=== PATIENT | male | born 1975 | race Caucasian/White ===

== ENCOUNTER 2019-08-01 13:12 | Inpatient (IN) | payer OTHER ==
[2019-08-01 15:48] VITALS: BMI 33.1
--- NOTE | 2019-08-01 16:59 | HP ---
CIWA Score Nausea/Vomitin-Int. Nausea w/Dry Heave Muscle Tremors: 3 Anxiety: 4-Mod. Anxious/Guarded Agitation: 0-Normal Activity Paroxysmal Sweats: 2 Orientation: 1-Uncertain about Date Tacttile Disturbances: 0-None Auditory Disturbances: 0-None Visual Disturbances: 0-None Headache: 0-None Present CIWA-Ar Total Score: 14 - Admission Criteria OASAS Guidelines: Admission for Medically Managed Detox: Requires at least one of the followin. CIWA greater than 12 2. Seizures within the past 24 hours 3. Delirium tremens within the past 24 hours 4. Hallucinations within the past 24 hours 5. Acute intervention needed for co occurring medical disorder 6. Acute intervention needed for co occurring psychiatric disorder 7. Severe withdrawal that cannot be handled at a lower level of care (continued vomiting, continued diarrhea, abnormal vital signs) requiring intravenous medication and/or fluids 8. Patient presents the following: CIWA greater than 12 Admission Criteria Met: Admission criteria met Admitting History and Physical - Admission Chief Complaint: alcohol History of Present Illness: Patient is a 43 yo transgender female (male to female) with hx of alcohol, benzo, crack /cocaine dependence is here seeking inpatient detox d/t withdrawal sx. last detox [facility] ([facility] one month. Reports 10 year sobriety with relapse one and half month ago. Linked to MMTP on methadone 50 mg QD at [facility] last medicated today. Denies any hx of seizures or blackouts. PMHX: Anemia. Psych: insomnia, anxiety, depression. History Source: Patient Limitations to Obtaining History: No Limitations Admission ROS [facility] - [facility] Allergies/Adverse Reactions: Allergies Allergy/AdvReac Type Severity Reaction Status Date / Time No Known Allergies Allergy Verified 08/01/19 15:54 Exam Limitations: No Limitations - Ebola screening Have you traveled outside of the country in the last 21 days: No Have you had contact with anyone from an Ebola affected area: No Do you have a fever: No - Review of Systems Constitutional: Chills, Changes in sleep EENT: reports: No Symptoms Reported Respiratory: reports: No Symptoms reported Cardiac: reports: No Symptoms Reported GI: reports: Nausea, Poor Fluid Intake, Abdominal cramping : reports: No Symptoms Reported Musculoskeletal: reports: Joint Pain Integumentary: reports: No Symptoms Reported Neuro: reports: No Symptoms reported Endocrine: reports: No Symptoms Reported Hematology: reports: Anemia Psychiatric: reports: Orientated x3, Anxious Other Systems: Reviewed and Negative Patient History - Patient Medical History Hx Anemia: Yes Hx Asthma: No Hx Chronic Obstructive Pulmonary Disease (COPD): No Hx Cancer: No Hx Cardiac Disorders: No Hx Congestive Heart Failure: No Hx Hypertension: No Hx Hypercholesterolemia: No Hx Pacemaker: No HX Cerebrovascular Accident: No Hx Seizures: No Hx Dementia: No Hx Diabetes: No Hx Gastrointestinal Disorders: No Hx Liver Disease: No Hx Genitourinary Disorders: No Hx Sexually Transmitted Disorders: No Hx Renal Disease (ESRD): No Hx Thyroid Disease: No Hx Human Immunodeficiency Virus (HIV): No Hx Hepatitis C: No Hx Depression: Yes Hx Suicide Attempt: No Hx Bipolar Disorder: No Hx Schizophrenia: No - Patient Surgical History Past Surgical History: No - PPD History Previous Implant?: No Documented Results: Negative w/o proof PPD to be Administered?: Yes - Smoking Cessation Smoking history: Current every day smoker Have you smoked in the past 12 months: Yes Aproximately how many cigarettes per day: 4 Hx Chewing Tobacco Use: No Initiated information on smoking cessation: Yes 'Breaking Loose' booklet given: 08/01/19 - Substance & Tx. History Hx Alcohol Use: Yes Hx Substance Use: Yes Substance Use Type: Alcohol, Cocaine, Tranquilizers Hx Substance Use Treatment: Yes (Detox [facility] one month ago) - Substances abused Alcohol Substance route: Oral Frequency: Daily Amount used: fifth of vodka or gin Age of first use: 10 Date of last use: 08/01/19 Crack Substance route: Smoking Frequency: Daily Amount used: $30- and up Age of first use: 19 Date of last use: 07/31/19 Admission Physical Exam BHS - Vital Signs Vital Signs: Vital Signs - 24 hr 08/01/19 15:43 Temperature 97.3 F L Pulse Rate 74 Respiratory 18 Rate Blood Pressure 114/75 - Physical General Appearance: Yes: Appropriately Dressed, Disheveled, Obese, Tremorous, Anxious HEENTM: Yes: EOMI, Hearing grossly Normal, Normal ENT Inspection, Normocephalic , Normal Voice, SUDHA, Pharynx Normal, Tm's normal Respiratory: Yes: Chest Non-Tender, Lungs Clear, Normal Breath Sounds, No Respiratory Distress, No Accessory Muscle Use Neck: Yes: Within Normal Limits Breast: Yes: Breast Exam Deferred Cardiology: Yes: Regular Rhythm, Regular Rate Abdominal: Yes: Normal Bowel Sounds, Non Tender, Flat, Soft Genitourinary: Yes: Within Normal Limits Back: Yes: Normal Inspection Musculoskeletal: Yes: full range of Motion, Gait Steady, Pelvis Stable Extremities: Yes: Normal Capillary Refill, Normal Inspection, Normal Range of Motion, Non-Tender Neurological: Yes: Within Normal Limits Integumentary: Yes: Normal Color, Warm, Diaphoresis Lymphatic: Yes: Within Normal Limits - Diagnostic (1) Alcohol dependence with withdrawal, uncomplicated Current Visit: Yes Status: Acute (2) Cocaine dependence, uncomplicated Current Visit: Yes Status: Acute (3) Sbqy-rq-cnorri transgender person Current Visit: Yes Status: Chronic (4) Psychiatric disorder Current Visit: Yes Status: Acute Comment: psych consult ordered Cleared for Admission S - Detox or Rehab [facility] Level of Care: Medically Managed Detox Regimen/Protocol: Librium Breathalyzer - Breathalyzer Breathalyzer: 0 Urine Drug Screen - Test Device Lot number: [id number] Expiration date: 03/24/21 - Control Is test valid?: Yes - Results Drug screen NEGATIVE: No Urine drug screen results: JO-ANN-Cocaine, MTD-Methadone, BZO-Benzodiazepines Inpatient Rehab Admission - Rehab Decision to Admit Inpatient rehab admission?: No
[2019-08-01] MEDS ORDERED: hydrOXYzine PAMOATE 25 MG CAPSULE (FP) PO PRN (17:05)
[2019-08-01] MEDS ORDERED: MAGNESIUM HYDROX 2400MG/30ML ORAL SUSPENSION 30 ML CUP PO PRN (17:05)
[2019-08-01] MEDS ORDERED: NICOTINE POLACRILEX 2 MG GUM BUC PRN (17:05)
[2019-08-01] MEDS ORDERED: ACETAMINOPHEN 325 MG TABLET (FP) PO PRN ×2 (17:05)
[2019-08-01] MEDS ORDERED: MAG HYDROX/AL HYDROX/SIMETH 30 ML UNIT-DOSE CUP PO PRN (17:05)
[2019-08-01] MEDS ORDERED: MENTHOL/PHENOL 1 EACH UD MM PRN (17:05)
[2019-08-01] MEDS ORDERED: BISMUTH SUBSALICYLATE 524 MG/30 ML UD PO PRN (17:05)
[2019-08-01] MEDS ORDERED: chlordiazePOXIDE HCL 25 MG CAPSULE PO PRN (17:05)
[2019-08-01] MEDS ORDERED: METHOCARBAMOL 500 MG TABLET PO PRN (17:05)
[2019-08-01] MEDS ORDERED: IBUPROFEN 400 MG TABLET (FP) PO PRN (17:05)
[2019-08-01] MEDS ORDERED: MAGNESIUM CITRATE 300 ML BOTTLE PO PRN (17:05)
[2019-08-01] MEDS ORDERED: QUEtiapine FUMARATE 50 MG TABLET PO ONE (22:00)
[2019-08-01] MEDS: chlordiazePOXIDE HCL 25 MG CAPSULE PO SCH (23:14)
[2019-08-01] MEDS: THIAMINE HCL 100 MG TABLET (FP) PO SCH (23:15)
[2019-08-01] MEDS: ESTRADIOL 2 MG TABLET (NON-FORMULARY) PO SCH (23:53)
[2019-08-02] MEDS: chlordiazePOXIDE HCL 25 MG CAPSULE PO SCH ×4 (07:18→22:28)
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
[2019-08-02 09:58] LABS: HEMATOCRIT 38.9 % (35.4-49); HEMOGLOBIN 13.3 GM/dL (11.7-16.9); MCH 31.2 pg (25.7-33.7); MCHC 34.2 g/dl (32.0-35.9); MEAN CELL VOLUME 91.2 fl (80-96); MEAN PLT VOLUME 7.8 fl (7.5-11.1); PLATELET COUNT 269 K/MM3 (134-434); RBC 4.27 M/mm3 (4.00-5.60); RDW 12.6 % (11.9-15.9); WHITE BLOOD COUNT 6.8 K/mm3 (4.0-10.0)
[2019-08-02] MEDS ORDERED: METHADONE HCL 10 MG TABLET PO ONE (10:15)
[2019-08-02] MEDS ORDERED: METHADONE 40 MG, METHADONE 10 MG PO ONE (10:20)
[2019-08-02] MEDS ORDERED: METHADONE HCL 40 MG DISPERSABLE TABLET ONE (10:26)
[2019-08-02] MEDS ORDERED: METHADONE HCL 10 MG TABLET ONE (10:26)
[2019-08-02] MEDS: PATIENT'S OWN MEDICATION (NON-FORMULARY) (Spironolactone [Aldactone] 100 MG) PO SCH (10:27)
[2019-08-02] MEDS: ESTRADIOL 2 MG TABLET (NON-FORMULARY) PO SCH ×2 (10:27→22:30)
[2019-08-02] MEDS: PRENATAL VITAMINS W/ FOLIC ACID TABLET (FP) PO SCH (10:29)
[2019-08-02] MEDS: NICOTINE 14 MG/24 HOURS TOPICAL PATCH TD SCH (10:29)
[2019-08-02 10:55] LABS: ALBUMIN 3.1 g/dl (3.4-5.0); BILIRUBIN,TOTAL 0.3 mg/dL (0.2-1); BLOOD UREA NITROGEN 17.5 mg/dL (7-18); CALCIUM 8.8 mg/dL (8.5-10.1); CREATININE 1.2 mg/dL (0.55-1.3); POTASSIUM 4.7 mmol/L (3.5-5.1); TOT PROT 6.6 g/dl (6.4-8.2)
--- NOTE | 2019-08-02 14:30 | PN ---
S CIWA - CIWA Score Nausea/Vomitin-No Nausea/No Vomiting Muscle Tremors: 3 Anxiety: 2 Agitation: 3 Paroxysmal Sweats: 2 Orientation: 0-Oriented Tacttile Disturbances: 0-None Auditory Disturbances: 0-None Visual Disturbances: 0-None Headache: 0-None Present CIWA-Ar Total Score: 10 S Progress Note (SOAP) Subjective: sweats agitation interrupted sleep irritable Objective: 08/02/19 14:29 Vital Signs Temperature 97.6 F 08/02/19 13:53 Pulse Rate 76 08/02/19 13:53 Respiratory Rate 18 08/02/19 13:53 Blood Pressure 140/74 08/02/19 13:53 O2 Sat by Pulse Oximetry (%) Laboratory Tests 08/02/19 08/02/19 08/02/19 08:00 08:00 08:00 WBC 6.8 RBC 4.27 Hgb 13.3 Hct 38.9 MCV 91.2 MCH 31.2 MCHC 34.2 RDW 12.6 Plt Count 269 MPV 7.8 Sodium 139 Potassium 4.7 Chloride 105 Carbon Dioxide 33 H Anion Gap 1 L BUN 17.5 Creatinine 1.2 Est GFR (CKD-EPI)AfAm 84.13 Est GFR (CKD-EPI)NonAf 72.59 Random Glucose 100 Calcium 8.8 Total Bilirubin 0.3 AST 13 L ALT 15 Alkaline Phosphatase 75 Total Protein 6.6 Albumin 3.1 L RPR Titer Nonreactive labs noted aaox3 ambulating no acute distress Assessment: 08/02/19 14:30 withdrawal sx Plan: continue detox increase fluids
[2019-08-02] MEDS: THIAMINE HCL 100 MG TABLET (FP) PO SCH (22:29)
[2019-08-02] MEDS: QUEtiapine FUMARATE 50 MG TABLET PO SCH (22:29)
[2019-08-03] MEDS ORDERED: METHADONE HCL 40 MG DISPERSABLE TABLET ONE (05:26)
[2019-08-03] MEDS ORDERED: METHADONE HCL 10 MG TABLET ONE (05:26)
[2019-08-03] MEDS ORDERED: METHADONE HCL 40 MG DISPERSABLE TABLET PO SCH (06:00)
[2019-08-03] MEDS: METHADONE 40 MG, METHADONE 10 MG PO SCH (06:17)
[2019-08-03] MEDS: chlordiazePOXIDE HCL 25 MG CAPSULE PO SCH ×4 (06:17→22:42)
[2019-08-03] MEDS: PRENATAL VITAMINS W/ FOLIC ACID TABLET (FP) PO SCH (10:48)
[2019-08-03] MEDS: ESTRADIOL 2 MG TABLET (NON-FORMULARY) PO SCH ×2 (10:48→22:42)
[2019-08-03] MEDS: PATIENT'S OWN MEDICATION (NON-FORMULARY) (Spironolactone [Aldactone] 100 MG) PO SCH (10:49)
[2019-08-03] MEDS: NICOTINE 14 MG/24 HOURS TOPICAL PATCH TD SCH (10:49)
--- NOTE | 2019-08-03 13:48 | PN ---
S CIWA - CIWA Score Nausea/Vomitin-No Nausea/No Vomiting Muscle Tremors: 2 Anxiety: 2 Agitation: 2 Paroxysmal Sweats: 2 Orientation: 0-Oriented Tacttile Disturbances: 0-None Auditory Disturbances: 0-None Visual Disturbances: 0-None Headache: 0-None Present CIWA-Ar Total Score: 8 BHS Progress Note (SOAP) Subjective: sweats anxiety restless interrupted sleep Objective: 08/03/19 13:47 Vital Signs Temperature 98.2 F 08/03/19 10:05 Pulse Rate 78 08/03/19 10:05 Respiratory Rate 18 08/03/19 10:05 Blood Pressure 103/68 08/03/19 10:05 O2 Sat by Pulse Oximetry (%) Laboratory Tests 08/02/19 08/02/19 08/02/19 08:00 08:00 08:00 WBC 6.8 RBC 4.27 Hgb 13.3 Hct 38.9 MCV 91.2 MCH 31.2 MCHC 34.2 RDW 12.6 Plt Count 269 MPV 7.8 Sodium 139 Potassium 4.7 Chloride 105 Carbon Dioxide 33 H Anion Gap 1 L BUN 17.5 Creatinine 1.2 Est GFR (CKD-EPI)AfAm 84.13 Est GFR (CKD-EPI)NonAf 72.59 Random Glucose 100 Calcium 8.8 Total Bilirubin 0.3 AST 13 L ALT 15 Alkaline Phosphatase 75 Total Protein 6.6 Albumin 3.1 L RPR Titer Nonreactive labs noted aaox3 ambulating no acute distress Assessment: 08/03/19 13:47 withdrawal sx Plan: continue detox increase fluids
[2019-08-03] MEDS: THIAMINE HCL 100 MG TABLET (FP) PO SCH (22:42)
[2019-08-03] MEDS: QUEtiapine FUMARATE 50 MG TABLET PO SCH (22:42)
[2019-08-03] MEDS: MELATONIN 5 MG TABLETS PO PRN (22:44)
[2019-08-04] MEDS ORDERED: chlordiazePOXIDE HCL 10 MG CAPSULE PO PRN
[2019-08-04] MEDS ORDERED: METHADONE HCL 40 MG DISPERSABLE TABLET ONE (03:25)
[2019-08-04] MEDS ORDERED: METHADONE HCL 10 MG TABLET ONE (03:25)
[2019-08-04] MEDS: chlordiazePOXIDE HCL 10 MG CAPSULE PO SCH ×4 (05:46→22:16)
[2019-08-04] MEDS: METHADONE 40 MG, METHADONE 10 MG PO SCH (05:46)
--- NOTE | 2019-08-04 10:53 | EKG ---
Test Reason : Blood Pressure : / mmHG Vent. Rate : 073 BPM Atrial Rate : 073 BPM P-R Int : 156 ms QRS Dur : 086 ms QT Int : 418 ms P-R-T Axes : 049 060 038 degrees QTc Int : 460 ms NORMAL SINUS RHYTHM NORMAL ECG NO PREVIOUS ECGS AVAILABLE Confirmed by MILADYS CANTRELL MD ([id number]) on 08/04/2019 10:53:31 AM Referred By: IVANIA AVALOS Confirmed By:MILADYS CANTRELL MD
[2019-08-04] MEDS: PRENATAL VITAMINS W/ FOLIC ACID TABLET (FP) PO SCH (10:54)
[2019-08-04] MEDS: ESTRADIOL 2 MG TABLET (NON-FORMULARY) PO SCH ×2 (10:56→22:16)
[2019-08-04] MEDS: PATIENT'S OWN MEDICATION (NON-FORMULARY) (Spironolactone [Aldactone] 100 MG) PO SCH (10:56)
[2019-08-04] MEDS: NICOTINE 14 MG/24 HOURS TOPICAL PATCH TD SCH (10:56)
--- NOTE | 2019-08-04 17:36 | PN ---
S CIWA - CIWA Score Nausea/Vomitin-No Nausea/No Vomiting Muscle Tremors: None Anxiety: 3 Agitation: 2 Paroxysmal Sweats: 2 Orientation: 0-Oriented Tacttile Disturbances: 0-None Auditory Disturbances: 0-None Visual Disturbances: 0-None Headache: 0-None Present CIWA-Ar Total Score: 7 BHS Progress Note (SOAP) Subjective: Feels uncomfortable Objective: 08/04/19 17:34 Last Vital Signs Temp Pulse Resp BP Pulse Ox 98.1 F 85 18 90/48 L 08/04/19 14:23 08/04/19 14:23 08/04/19 14:23 08/04/19 14:23 Hypotension: b/p 90/48, asymptomatic, encouraged PO water intake Laboratory Tests 08/02/19 08/02/19 08/02/19 08:00 08:00 08:00 WBC 6.8 RBC 4.27 Hgb 13.3 Hct 38.9 MCV 91.2 MCH 31.2 MCHC 34.2 RDW 12.6 Plt Count 269 MPV 7.8 Sodium 139 Potassium 4.7 Chloride 105 Carbon Dioxide 33 H Anion Gap 1 L BUN 17.5 Creatinine 1.2 Est GFR (CKD-EPI)AfAm 84.13 Est GFR (CKD-EPI)NonAf 72.59 Random Glucose 100 Calcium 8.8 Total Bilirubin 0.3 AST 13 L ALT 15 Alkaline Phosphatase 75 Total Protein 6.6 Albumin 3.1 L RPR Titer Nonreactive Labs reviewed Assessment: 08/04/19 17:35 Withdrawal sxs Plan: Continue detox Hypotension: asymptomatic, encouraged PO water intake, monitor b/p
[2019-08-04] MEDS: THIAMINE HCL 100 MG TABLET (FP) PO SCH (22:16)
[2019-08-04] MEDS: MELATONIN 5 MG TABLETS PO PRN (22:16)
[2019-08-04] MEDS: QUEtiapine FUMARATE 50 MG TABLET PO SCH (22:16)
[2019-08-05] MEDS ORDERED: METHADONE HCL 10 MG TABLET ONE (04:55)
[2019-08-05] MEDS ORDERED: METHADONE HCL 40 MG DISPERSABLE TABLET ONE (04:56)
[2019-08-05] MEDS: METHADONE 40 MG, METHADONE 10 MG PO SCH (06:56)
[2019-08-05] MEDS: chlordiazePOXIDE HCL 10 MG CAPSULE PO SCH ×2 (06:57→16:57)
[2019-08-05] MEDS: PATIENT'S OWN MEDICATION (NON-FORMULARY) (Spironolactone [Aldactone] 100 MG) PO SCH (10:57)
[2019-08-05] MEDS: PRENATAL VITAMINS W/ FOLIC ACID TABLET (FP) PO SCH (10:58)
[2019-08-05] MEDS: ESTRADIOL 2 MG TABLET (NON-FORMULARY) PO SCH ×2 (10:58→22:26)
[2019-08-05] MEDS: NICOTINE 14 MG/24 HOURS TOPICAL PATCH TD SCH (10:59)
--- NOTE | 2019-08-05 13:35 | PN ---
S CIWA - CIWA Score Nausea/Vomitin-No Nausea/No Vomiting Muscle Tremors: None Anxiety: 1-Mildly Anxious Agitation: 2 Paroxysmal Sweats: No Perspiration Orientation: 0-Oriented Tacttile Disturbances: 0-None Auditory Disturbances: 0-None Visual Disturbances: 0-None Headache: 0-None Present CIWA-Ar Total Score: 3 BHS Progress Note (SOAP) Subjective: little anxiety Objective: 08/05/19 13:35 Vital Signs Temperature 97.7 F 08/05/19 09:55 Pulse Rate 99 H 08/05/19 09:55 Respiratory Rate 20 08/05/19 09:55 Blood Pressure 125/90 08/05/19 09:55 O2 Sat by Pulse Oximetry (%) aaox3 ambulating no acute distress Assessment: 08/05/19 13:35 mild withdrawals Plan: continue detox d/c in am
[2019-08-05] MEDS: QUEtiapine FUMARATE 50 MG TABLET PO SCH (22:26)
[2019-08-05] MEDS: THIAMINE HCL 100 MG TABLET (FP) PO SCH (22:26)
[2019-08-06] MEDS ORDERED: METHADONE HCL 10 MG TABLET ONE (04:38)
[2019-08-06] MEDS ORDERED: METHADONE HCL 40 MG DISPERSABLE TABLET ONE (04:38)
[2019-08-06] MEDS ORDERED: chlordiazePOXIDE HCL 10 MG CAPSULE PO ONE (05:00)
[2019-08-06] MEDS: METHADONE 40 MG, METHADONE 10 MG PO SCH (05:44)
[2019-08-06 06:52] VITALS: BP 100/61; PULSE 86; TEMP 98.1
--- NOTE | 2019-08-06 09:46 | DS ---
[facility] Detox Discharge Summary Admission Date: 08/01/19 Discharge Date: 08/06/19 - History Present History: Alcohol Dependence, Cocaine Dependence, Sedative Dependence - Physical Exam Results Vital Signs: Vital Signs Temperature 98.1 F 08/06/19 06:48 Pulse Rate 86 08/06/19 06:48 Respiratory Rate 18 08/06/19 06:48 Blood Pressure 100/61 08/06/19 06:48 O2 Sat by Pulse Oximetry (%) Pertinent Admission Physical Exam Findings: pt arrived in withdrawals Vital Signs Temperature 98.1 F 08/06/19 06:48 Pulse Rate 86 08/06/19 06:48 Respiratory Rate 18 08/06/19 06:48 Blood Pressure 100/61 08/06/19 06:48 O2 Sat by Pulse Oximetry (%) Laboratory Tests 08/02/19 08/02/19 08/02/19 08:00 08:00 08:00 WBC 6.8 RBC 4.27 Hgb 13.3 Hct 38.9 MCV 91.2 MCH 31.2 MCHC 34.2 RDW 12.6 Plt Count 269 MPV 7.8 Sodium 139 Potassium 4.7 Chloride 105 Carbon Dioxide 33 H Anion Gap 1 L BUN 17.5 Creatinine 1.2 Est GFR (CKD-EPI)AfAm 84.13 Est GFR (CKD-EPI)NonAf 72.59 Random Glucose 100 Calcium 8.8 Total Bilirubin 0.3 AST 13 L ALT 15 Alkaline Phosphatase 75 Total Protein 6.6 Albumin 3.1 L RPR Titer Nonreactive today pt is aaox3 ambulating no s/s of withdrawal - Treatment Hospital Course: Detox Protocol Followed, Detoxed Safely, Responded well, Discharged Condition Good, Rehab Referral Accepted Patient has Accepted a Rehab Referral to: pt declined rehab; referral provided - Medication Discharge Medications: Ambulatory Orders Bupropion HCl [Bupropion Xl] 300 mg PO DAILY 08/01/19 Estradiol 4 mg PO BID 08/01/19 Methadone [Dolophine -] 50 mg PO DAILY 08/01/19 Quetiapine Fumarate [Seroquel -] 50 mg PO DAILY 08/01/19 Spironolactone [Aldactone] 100 mg PO DAILY 08/01/19 - Diagnosis (1) Alcohol dependence with withdrawal, uncomplicated Current Visit: Yes Status: Chronic (2) Cocaine dependence, uncomplicated Current Visit: Yes Status: Chronic (3) Psychiatric disorder Current Visit: Yes Status: Acute (4) Sedative hypnotic or anxiolytic dependence Current Visit: Yes Status: Acute (5) Substance-induced anxiety disorder Current Visit: Yes Status: Acute (6) Substance-induced sleep disorder Current Visit: Yes Status: Acute (7) MDD (major depressive disorder), recurrent episode, moderate Current Visit: Yes Status: Chronic (8) Eqlc-mw-dwriuo transgender person Current Visit: Yes Status: Chronic (9) Nicotine dependence Current Visit: Yes Status: Chronic Qualifiers: Nicotine product type: cigarettes Substance use status: uncomplicated Qualified Code(s): F17.210 - Nicotine dependence, cigarettes, uncomplicated (10) Opioid dependence on agonist therapy Current Visit: Yes Status: Chronic (11) PTSD (post-traumatic stress disorder) Current Visit: Yes Status: Ruled-out - AMA Did Patient Leave Against Medical Advice: No
== END 2019-08-06 09:22 | disposition home or self-care (01) | DRG 773 ==
LOC: YASAS 13:12 → Y6N 17:25
PROVIDERS: ADMIT Allergy & Immunology; ATTEND Allergy & Immunology
PROC: HZ2ZZZZ Detoxification Services for Substance Abuse Treatment (ICD-10-PCS; principal; 2019-08-01)
DX: F10.230 Alcohol dependence with withdrawal, uncomplicated (principal); F11.20 Opioid dependence, uncomplicated; F13.20 Sedative, hypnotic or anxiolytic dependence, uncomplicated; F14.20 Cocaine dependence, uncomplicated; F17.210 Nicotine dependence, cigarettes, uncomplicated; F19.282 Other psychoactive substance dependence with psychoactive substance-induced sleep disorder; F19.280 Other psychoactive substance dependence with psychoactive substance-induced anxiety disorder; F33.1 Major depressive disorder, recurrent, moderate; F64.0 Transsexualism; F43.10 Post-traumatic stress disorder, unspecified; F99 Mental disorder, not otherwise specified; D64.9 Anemia, unspecified
CPT/HCPCS: 36415; 80053; 85027; 86593; 93005; 93010

== ENCOUNTER 2019-09-09 16:18 | Inpatient (IN) | payer OTHER ==
[2019-09-09 17:24] VITALS: BMI 30.4
--- NOTE | 2019-09-09 18:45 | HP ---
CIWA Score - Admission Criteria OASAS Guidelines: Admission for Medically Managed Detox: Requires at least one of the followin. CIWA greater than 12 2. Seizures within the past 24 hours 3. Delirium tremens within the past 24 hours 4. Hallucinations within the past 24 hours 5. Acute intervention needed for co occurring medical disorder 6. Acute intervention needed for co occurring psychiatric disorder 7. Severe withdrawal that cannot be handled at a lower level of care (continued vomiting, continued diarrhea, abnormal vital signs) requiring intravenous medication and/or fluids 8. Admitting History and Physical - Smoking History Smoking history: Current every day smoker Have you smoked in the past 12 months: Yes Aproximately how many cigarettes per day: 4 - Alcohol/Substance Use Hx Alcohol Use: Yes Admission ROS [facility] Chief Complaint: "Here for rehab. States just discharged from [facility] Allergies/Adverse Reactions: Allergies Allergy/AdvReac Type Severity Reaction Status Date / Time No Known Allergies Allergy Verified 09/09/19 17:08 History of Present Illness: 44 yo presents for admission to rehab. Discharged from [facility] today. Utox: + MTD/BZO LUCY: 0.0 Denies seizures/blackouts. One overdose - 1 year ago. Heroin use since age 25. Currently on PROMESA MMTP. Current dose is 50 mg PO daily. Last medicated in [facility]. Crack/cocaine use began at age 20. Last used 6 days ago. Alcohol use began at age 12. Was drinking about 1/5th liquor daily. Last drank 6 days ago. Nicotine use began at 10. Currently smokes 5 cig/day. Smoked more (7-8/day) while in detox. PMHx: Male to Female transgender; EK08/01/19: NSR MHHx: Anxiety. Depression. Denies thoughts of harming self or others. Last saw a MH Provider, in community, 5 months ago. SHx: Domiciled. Unemployed. Denies legal issues. Search Terms: Ricardo Porter, 1975 Search Date: 09/09/2019 06:44:39 PM The Drug Utilization Report below displays all of the controlled substance prescriptions, if any, that your patient has filled in the last twelve months. The information displayed on this report is compiled from pharmacy submissions to the Department, and accurately reflects the information as submitted by the pharmacies. This report was requested by: Emily Tao | Reference #: [id number] There are no results for the search terms that you entered. Exam Limitations: No Limitations - Ebola screening Have you traveled outside of the country in the last 21 days: No (N) Have you had contact with anyone from an Ebola affected area: No Have you been sick,other than usual withdrawal symptoms: No Do you have a fever: No - Review of Systems Constitutional: Changes in sleep (Difficulty falling and staying asleep - was take Seroquel.), Weight Stable EENT: reports: No Symptoms Reported Respiratory: reports: No Symptoms reported Cardiac: reports: No Symptoms Reported GI: reports: Indigestion (Occ heart burn) : reports: No Symptoms Reported Musculoskeletal: reports: No Symptoms Reported Integumentary: reports: No Symptoms Reported Neuro: reports: No Symptoms reported Endocrine: reports: No Symptoms Reported Hematology: reports: No Symptoms Reported Psychiatric: reports: Judgement Intact, Orientated x3, Anxious, Depressed ( Denies thoughts of harming self or others.) Patient History - Patient Medical History Hx Anemia: Yes Hx Asthma: No Hx Chronic Obstructive Pulmonary Disease (COPD): No Hx Cancer: No Hx Cardiac Disorders: No Hx Congestive Heart Failure: No Hx Hypertension: No Hx Hypercholesterolemia: No Hx Pacemaker: No HX Cerebrovascular Accident: No Hx Seizures: No Hx Dementia: No Hx Diabetes: No Hx Gastrointestinal Disorders: No Hx Liver Disease: No Hx Genitourinary Disorders: No Hx Sexually Transmitted Disorders: No Hx Renal Disease (ESRD): No Hx Thyroid Disease: No Hx Human Immunodeficiency Virus (HIV): No Hx Hepatitis C: No Hx Depression: Yes Hx Suicide Attempt: No Hx Bipolar Disorder: No Hx Schizophrenia: No - Patient Surgical History Past Surgical History: No - PPD History Previous Implant?: Yes Documented Results: Negative w/proof Implanted On Prior [facility] Admission?: Yes Date: 08/03/19 PPD to be Administered?: No - Smoking Cessation Smoking history: Current every day smoker Have you smoked in the past 12 months: Yes Aproximately how many cigarettes per day: 8 Hx Chewing Tobacco Use: No Initiated information on smoking cessation: Yes 'Breaking Loose' booklet given: 09/09/19 - Substance & Tx. History Hx Alcohol Use: Yes Hx Substance Use: Yes Substance Use Type: Alcohol, Cocaine, Heroin, Opiates Hx Substance Use Treatment: Yes (detox, rehab, MMTP) - Substances abused Alcohol Substance route: Oral Frequency: Daily Amount used: fifth of vodka or gin Age of first use: 10 Date of last use: 09/03/19 Crack Substance route: Smoking Frequency: Daily Amount used: $30- 150 Age of first use: 19 Date of last use: 09/03/19 Heroin Substance route: Inhalation Frequency: Daily Amount used: 1-2 bags Age of first use: 20 Date of last use: 09/03/19 Alprazolam (Xanax) Other (specify): 2mg Substance route: Oral Frequency: 3-6 times per week Amount used: 4mg Age of first use: 16 Date of last use: 09/01/19 Admission Physical Exam S - Vital Signs Vital Signs: Vital Signs - 24 hr 09/09/19 09/09/19 17:10 17:44 Temperature 97.9 F 97.9 F Pulse Rate 77 77 Respiratory 20 20 Rate Blood Pressure 119/78 119/78 - Physical General Appearance: Yes: Nourished, Anxious HEENTM: Yes: EOMI, Hearing grossly Normal, Normocephalic, Normal Voice, SUDHA, Pharynx Normal, Other (Perforated nasal septum) Respiratory: Yes: Lungs Clear (Pulse Ox = 97 %), Normal Breath Sounds, No Respiratory Distress Neck: Yes: No masses,lesions,Nodules, Supple Breast: Yes: Breast Exam Deferred Cardiology: Yes: Regular Rhythm, Regular Rate, S1, S2 Abdominal: Yes: Normal Bowel Sounds, Non Tender, Soft, Protuberent (Increased abdominal adiposity) Genitourinary: Yes: Within Normal Limits Back: Yes: Normal Inspection Musculoskeletal: Yes: full range of Motion, Gait Steady Extremities: Yes: Normal Capillary Refill, Other (Peripheral pulses +; No edema. 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, Fully Oriented, Alert, Motor Strength 5/5, Normal Response Integumentary: Yes: Normal Color, Dry, Warm Lymphatic: Yes: Within Normal Limits - Diagnostic (1) Moderate alcohol dependence in early remission in controlled environment Current Visit: Yes Status: Acute (2) Moderate cocaine dependence in early remission in controlled environment Current Visit: Yes Status: Acute (3) [id number] transgender person Current Visit: Yes Status: Chronic (4) Nicotine dependence Current Visit: Yes Status: Chronic Qualifiers: Nicotine product type: cigarettes Substance use status: uncomplicated Qualified Code(s): F17.210 - Nicotine dependence, cigarettes, uncomplicated (5) Opioid dependence on agonist therapy Current Visit: Yes Status: Chronic Cleared for Admission [facility] - Detox or Rehab Claeared for Rehab Admission: Yes Breathalyzer - Breathalyzer Breathalyzer: 0 Urine Drug Screen - Test Device Lot number: [id number] Expiration date: 04/24/21 - Control Is test valid?: Yes - Results Drug screen NEGATIVE: No Urine drug screen results: MTD-Methadone, BZO-Benzodiazepines Inpatient Rehab Admission - Rehab Decision to Admit Inpatient rehab admission?: Yes - Initial Determination Are CD services needed?: Yes Free of communicable disease: Yes Not in need of hospitalization: Yes - Rehab Admission Criteria Previous failed treatment: Yes Poor recovery environment: Yes Comorbidities: Yes Lacks judgement: No Patient is meeting Inpatient Rehab admission criteria:: Yes
[2019-09-09] MEDS ORDERED: NICOTINE POLACRILEX 2 MG GUM BC PRN (19:08)
[2019-09-09] MEDS ORDERED: MAG HYDROX/AL HYDROX/SIMETH 30 ML UNIT-DOSE CUP PO PRN (19:08)
[2019-09-09] MEDS ORDERED: MAGNESIUM HYDROX 2400MG/30ML ORAL SUSPENSION 30 ML CUP PO PRN (19:08)
[2019-09-09] MEDS ORDERED: LOPERAMIDE HCL 2 MG CAPSULE PO PRN (19:08)
[2019-09-09] MEDS ORDERED: IBUPROFEN 400 MG TABLET (FP) PO PRN (19:08)
[2019-09-09] MEDS ORDERED: MENTHOL/PHENOL 1 EACH UD MM PRN (19:08)
[2019-09-09] MEDS ORDERED: ACETAMINOPHEN 325 MG TABLET (FP) PO PRN (19:08)
[2019-09-09] MEDS ORDERED: MAGNESIUM CITRATE 300 ML BOTTLE PO PRN (19:08)
[2019-09-09] MEDS: THIAMINE HCL 100 MG TABLET (FP) PO SCH (21:46)
[2019-09-09] MEDS ORDERED: MELATONIN 5 MG TABLETS PO PRN (22:00)
[2019-09-09] MEDS ORDERED: QUEtiapine FUMARATE 50 MG TABLET PO ONE (22:00)
[2019-09-09] MEDS: ESTRADIOL 2 MG TABLET (NON-FORMULARY) PO SCH (22:50)
[2019-09-10] MEDS ORDERED: PT OWN MED DRAWER 7, Y5N ONE ×2 (08:44→21:25)
[2019-09-10] MEDS ORDERED: METHADONE HCL 10 MG TABLET PO ONE (09:42)
[2019-09-10] MEDS ORDERED: SUVOREXANT 10 MG TABLET PO PRN (09:44)
[2019-09-10] MEDS ORDERED: SPIRONOLACTONE 25 MG TABLET (FP) PO SCH (10:00)
[2019-09-10] MEDS ORDERED: METHADONE 40 MG, METHADONE 10 MG PO ONE (10:30)
[2019-09-10] MEDS ORDERED: METHADONE HCL 10 MG TABLET ONE (10:46)
[2019-09-10] MEDS ORDERED: METHADONE HCL 40 MG DISPERSABLE TABLET ONE (10:46)
[2019-09-10] MEDS: PRENATAL VITAMINS W/ FOLIC ACID TABLET (FP) PO SCH (10:50)
[2019-09-10] MEDS: NICOTINE 7 MG/24 HOURS TOPICAL PATCH TD SCH (10:50)
--- NOTE | 2019-09-10 11:50 | PN ---
S Progress Note (SOAP) Subjective: Patient is concerned about getting her hormone regimen. States she has medications in her possessions and will be taken down to security to retrieve them. Admitted to Rehab yesterday, 09/09. Discharged from [facility]. Denies seizures/blackouts. One overdose - 1 year ago. Heroin use since age 25. Currently on PROMESA MMTP. Current dose is 50 mg PO daily. Last medicated in [facility]. Crack/cocaine use began at age 20. Last used 6 days ago. Alcohol use began at age 12. Was drinking about 1/5th liquor daily. Last drank 6 days ago. Nicotine use began at 10. Currently smokes 5 cig/day. Smoked more (7-8/day) while in detox. PMHx: Male to Female transgender; EK08/01/19: NSR MHHx: Anxiety. Depression. Denies thoughts of harming self or others. One suicide attempt in the past. Last saw a MH Provider, in community, 5 months ago. SHx: Domiciled. Unemployed. Denies legal issues. Previously admitted 08/01 to detox. At that time seen by psychiatric service and denied suicidal/homicidal thoughts. Patient previous admission did not indicate any safety issues or other medical issues. Objective: General: No apparent distress HEENTM: normocephalic, PERRLA Neck: supple Heart: S1 S2 Lungs: clear ABD: +BS MSK: full weight bearing, full ROM, steady gait. 09/10/19 11:53 09/10/19 11:59 Assessment: transgender female in need of hormone regimen Spiroldactone parameters changed to SBP<100. 09/10/19 11:59
[2019-09-10 12:15] LABS: HEMATOCRIT 39.4 % (35.4-49); HEMOGLOBIN 13.5 GM/dL (11.7-16.9); MCH 31.1 pg (25.7-33.7); MCHC 34.2 g/dl (32.0-35.9); MEAN CELL VOLUME 90.9 fl (80-96); MEAN PLT VOLUME 8.6 fl (7.5-11.1); PLATELET COUNT 256 K/MM3 (134-434); RBC 4.33 M/mm3 (4.00-5.60); WHITE BLOOD COUNT 10.7 K/mm3 (4.0-10.0)
[2019-09-10 12:21] LABS: URINE APPEARANCE CLEAR; URINE BILIRUBIN NEGATIVE (NEGATIVE); URINE COLOR YELLOW; URINE GLUCOSE (UA) NEGATIVE (NEGATIVE); URINE KETONE NEGATIVE (NEGATIVE); URINE LEUK ESTERASE NEGATIVE (NEGATIVE); URINE NITRITE NEGATIVE (NEGATIVE); URINE PROTEIN NEGATIVE (NEGATIVE); URINE UROBILINOGEN 0.2 mg/dL (0.2-1.0)
[2019-09-10 12:22] LABS: ALBUMIN 3.3 g/dl (3.4-5.0); BILIRUBIN,TOTAL 0.2 mg/dL (0.2-1); BLOOD UREA NITROGEN 23.2 mg/dL (7-18); CALCIUM 8.9 mg/dL (8.5-10.1); CREATININE 1.3 mg/dL (0.55-1.3); POTASSIUM 3.9 mmol/L (3.5-5.1); TOT PROT 6.9 g/dl (6.4-8.2)
[2019-09-10] MEDS ORDERED: ESTRADIOL 2 MG TABLET (NON-FORMULARY) PO ONE (13:00)
[2019-09-10] MEDS: ESTRADIOL 2 MG TABLET (NON-FORMULARY) PO SCH ×2 (13:07→21:25)
[2019-09-10] MEDS: SPIRONOLACTONE 25 MG TABLET (FP) PO SCH (13:10)
[2019-09-10] MEDS: THIAMINE HCL 100 MG TABLET (FP) PO SCH (21:23)
[2019-09-10] MEDS: hydrOXYzine PAMOATE 25 MG CAPSULE (FP) PO PRN (21:24)
[2019-09-11] MEDS ORDERED: METHADONE HCL 40 MG DISPERSABLE TABLET ONE (04:03)
[2019-09-11] MEDS ORDERED: METHADONE HCL 10 MG TABLET ONE (04:03)
[2019-09-11] MEDS ORDERED: METHADONE HCL 10 MG TABLET PO SCH (06:00)
[2019-09-11] MEDS: METHADONE 40 MG, METHADONE 10 MG PO SCH (06:34)
[2019-09-11] MEDS ORDERED: PT OWN MED DRAWER 7, Y5N ONE (08:44)
[2019-09-11] MEDS: PRENATAL VITAMINS W/ FOLIC ACID TABLET (FP) PO SCH (09:35)
[2019-09-11] MEDS: NICOTINE 7 MG/24 HOURS TOPICAL PATCH TD SCH (09:35)
[2019-09-11] MEDS: SPIRONOLACTONE 25 MG TABLET (FP) PO SCH (09:36)
[2019-09-11] MEDS: ESTRADIOL 2 MG TABLET (NON-FORMULARY) PO SCH ×2 (09:36→21:29)
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
[2019-09-11] MEDS: SERTRALINE HCL 50 MG TABLET (FP) PO SCH (12:18)
[2019-09-11] MEDS: GABAPENTIN 100 MG CAPSULE (FP) PO SCH ×2 (12:18→21:27)
--- NOTE | 2019-09-11 13:36 | PN ---
S Progress Note Note: Patient with 2 PPD tests in the past year. One in November and the second in July. Both were negative.
[2019-09-11] MEDS: hydrOXYzine PAMOATE 25 MG CAPSULE (FP) PO PRN (21:27)
[2019-09-11] MEDS: THIAMINE HCL 100 MG TABLET (FP) PO SCH (21:27)
[2019-09-11] MEDS: SUVOREXANT 10 MG TABLET PO PRN (21:29)
[2019-09-11] MEDS: QUEtiapine FUMARATE 50 MG TABLET PO SCH (21:29)
[2019-09-12] MEDS ORDERED: METHADONE HCL 10 MG TABLET ONE (03:23)
[2019-09-12] MEDS ORDERED: METHADONE HCL 40 MG DISPERSABLE TABLET ONE (03:23)
[2019-09-12] MEDS: METHADONE 40 MG, METHADONE 10 MG PO SCH (06:25)
[2019-09-12] MEDS ORDERED: PT OWN MED DRAWER 7, Y5N ONE ×2 (08:29→21:19)
[2019-09-12] MEDS: P-EPHED 60MG/TRIPROLIDI 2.5MG TABLET PO PRN ×2 (08:39→17:23)
[2019-09-12] MEDS: SPIRONOLACTONE 25 MG TABLET (FP) PO SCH (09:49)
[2019-09-12] MEDS: PRENATAL VITAMINS W/ FOLIC ACID TABLET (FP) PO SCH (09:50)
[2019-09-12] MEDS: GABAPENTIN 100 MG CAPSULE (FP) PO SCH ×2 (09:50→21:21)
[2019-09-12] MEDS: SERTRALINE HCL 50 MG TABLET (FP) PO SCH (09:50)
[2019-09-12] MEDS: ESTRADIOL 2 MG TABLET (NON-FORMULARY) PO SCH ×2 (09:50→21:21)
[2019-09-12] MEDS: NICOTINE 7 MG/24 HOURS TOPICAL PATCH TD SCH (09:51)
[2019-09-12] MEDS: QUEtiapine FUMARATE 50 MG TABLET PO SCH (21:20)
[2019-09-12] MEDS: THIAMINE HCL 100 MG TABLET (FP) PO SCH (21:20)
[2019-09-12] MEDS: SUVOREXANT 10 MG TABLET PO PRN (21:20)
[2019-09-12] MEDS: hydrOXYzine PAMOATE 25 MG CAPSULE (FP) PO PRN (21:21)
[2019-09-13] MEDS ORDERED: METHADONE HCL 40 MG DISPERSABLE TABLET ONE (05:47)
[2019-09-13] MEDS ORDERED: METHADONE HCL 10 MG TABLET ONE (05:47)
[2019-09-13] MEDS: METHADONE 40 MG, METHADONE 10 MG PO SCH (06:12)
[2019-09-13] MEDS: P-EPHED 60MG/TRIPROLIDI 2.5MG TABLET PO PRN ×2 (06:24→21:34)
[2019-09-13] MEDS ORDERED: PT OWN MED DRAWER 7, Y5N ONE ×2 (08:49→20:27)
[2019-09-13] MEDS: NICOTINE 7 MG/24 HOURS TOPICAL PATCH TD SCH (09:35)
[2019-09-13] MEDS: ESTRADIOL 2 MG TABLET (NON-FORMULARY) PO SCH ×2 (09:36→21:04)
[2019-09-13] MEDS: SERTRALINE HCL 50 MG TABLET (FP) PO SCH (09:36)
[2019-09-13] MEDS: SPIRONOLACTONE 25 MG TABLET (FP) PO SCH (09:36)
[2019-09-13] MEDS: GABAPENTIN 100 MG CAPSULE (FP) PO SCH ×2 (09:36→21:04)
[2019-09-13] MEDS: PRENATAL VITAMINS W/ FOLIC ACID TABLET (FP) PO SCH (09:36)
[2019-09-13] MEDS: QUEtiapine FUMARATE 50 MG TABLET PO SCH (21:04)
[2019-09-13] MEDS: SUVOREXANT 10 MG TABLET PO PRN (21:04)
[2019-09-13] MEDS: THIAMINE HCL 100 MG TABLET (FP) PO SCH (21:05)
[2019-09-14] MEDS ORDERED: METHADONE HCL 40 MG DISPERSABLE TABLET ONE (06:01)
[2019-09-14] MEDS ORDERED: METHADONE HCL 10 MG TABLET ONE (06:01)
[2019-09-14] MEDS: METHADONE 40 MG, METHADONE 10 MG PO SCH (06:40)
[2019-09-14] MEDS: guaiFENesin 200 MG/10 ML 10 ML UNIT-DOSE CUPS PO PRN (06:41)
[2019-09-14] MEDS ORDERED: PT OWN MED DRAWER 7, Y5N ONE ×2 (08:45→21:38)
[2019-09-14] MEDS: GABAPENTIN 100 MG CAPSULE (FP) PO SCH ×2 (09:31→21:38)
[2019-09-14] MEDS: PRENATAL VITAMINS W/ FOLIC ACID TABLET (FP) PO SCH (09:31)
[2019-09-14] MEDS: ESTRADIOL 2 MG TABLET (NON-FORMULARY) PO SCH ×2 (09:31→21:38)
[2019-09-14] MEDS: SERTRALINE HCL 50 MG TABLET (FP) PO SCH (09:31)
[2019-09-14] MEDS: NICOTINE 7 MG/24 HOURS TOPICAL PATCH TD SCH (09:32)
[2019-09-14] MEDS: SPIRONOLACTONE 25 MG TABLET (FP) PO SCH (09:32)
[2019-09-14] MEDS: SUVOREXANT 10 MG TABLET PO PRN (21:38)
[2019-09-14] MEDS: QUEtiapine FUMARATE 50 MG TABLET PO SCH (21:38)
[2019-09-14] MEDS: THIAMINE HCL 100 MG TABLET (FP) PO SCH (21:39)
[2019-09-15] MEDS: guaiFENesin 200 MG/10 ML 10 ML UNIT-DOSE CUPS PO PRN ×2 (05:09→20:17)
[2019-09-15] MEDS ORDERED: METHADONE HCL 10 MG TABLET ONE (06:12)
[2019-09-15] MEDS ORDERED: METHADONE HCL 40 MG DISPERSABLE TABLET ONE (06:12)
[2019-09-15] MEDS: METHADONE 40 MG, METHADONE 10 MG PO SCH (06:56)
[2019-09-15] MEDS ORDERED: PT OWN MED DRAWER 7, Y5N ONE (09:10)
[2019-09-15] MEDS: ESTRADIOL 2 MG TABLET (NON-FORMULARY) PO SCH ×2 (09:24→21:12)
[2019-09-15] MEDS: NICOTINE 7 MG/24 HOURS TOPICAL PATCH TD SCH (09:24)
[2019-09-15] MEDS: SERTRALINE HCL 50 MG TABLET (FP) PO SCH (09:25)
[2019-09-15] MEDS: GABAPENTIN 100 MG CAPSULE (FP) PO SCH ×2 (09:25→21:12)
[2019-09-15] MEDS: PRENATAL VITAMINS W/ FOLIC ACID TABLET (FP) PO SCH (09:25)
[2019-09-15] MEDS: SPIRONOLACTONE 25 MG TABLET (FP) PO SCH (10:20)
[2019-09-15] MEDS: THIAMINE HCL 100 MG TABLET (FP) PO SCH (21:11)
[2019-09-15] MEDS: QUEtiapine FUMARATE 50 MG TABLET PO SCH (21:12)
[2019-09-16] MEDS ORDERED: METHADONE HCL 40 MG DISPERSABLE TABLET ONE (06:10)
[2019-09-16] MEDS ORDERED: METHADONE HCL 10 MG TABLET ONE (06:10)
[2019-09-16] MEDS: METHADONE 40 MG, METHADONE 10 MG PO SCH (06:46)
[2019-09-16] MEDS: SERTRALINE HCL 50 MG TABLET (FP) PO SCH (09:43)
[2019-09-16] MEDS: PRENATAL VITAMINS W/ FOLIC ACID TABLET (FP) PO SCH (09:43)
[2019-09-16] MEDS: GABAPENTIN 100 MG CAPSULE (FP) PO SCH ×2 (09:43→21:22)
[2019-09-16] MEDS: ESTRADIOL 2 MG TABLET (NON-FORMULARY) PO SCH ×2 (09:44→21:22)
[2019-09-16] MEDS: NICOTINE 7 MG/24 HOURS TOPICAL PATCH TD SCH (09:44)
[2019-09-16] MEDS: guaiFENesin 200 MG/10 ML 10 ML UNIT-DOSE CUPS PO PRN ×3 (09:46→21:21)
[2019-09-16] MEDS: SPIRONOLACTONE 25 MG TABLET (FP) PO SCH (10:29)
[2019-09-16] MEDS: P-EPHED 60MG/TRIPROLIDI 2.5MG TABLET PO PRN (17:24)
[2019-09-16] MEDS ORDERED: PT OWN MED DRAWER 7, Y5N ONE ×2 (21:19→21:23)
[2019-09-16] MEDS: THIAMINE HCL 100 MG TABLET (FP) PO SCH (21:20)
[2019-09-16] MEDS: hydrOXYzine PAMOATE 25 MG CAPSULE (FP) PO PRN (21:22)
[2019-09-16] MEDS: QUEtiapine FUMARATE 50 MG TABLET PO SCH (21:22)
[2019-09-16] MEDS ORDERED: SUVOREXANT 10 MG TABLET PO PRN (22:00)
[2019-09-17] MEDS ORDERED: PT OWN MED DRAWER 7, Y5N ONE ×2 (05:49→19:36)
[2019-09-17] MEDS ORDERED: METHADONE HCL 10 MG TABLET ONE (05:49)
[2019-09-17] MEDS ORDERED: METHADONE HCL 40 MG DISPERSABLE TABLET ONE (05:49)
[2019-09-17] MEDS: METHADONE 40 MG, METHADONE 10 MG PO SCH (06:00)
[2019-09-17] MEDS: guaiFENesin 200 MG/10 ML 10 ML UNIT-DOSE CUPS PO PRN ×2 (06:01→13:41)
[2019-09-17] MEDS: SERTRALINE HCL 50 MG TABLET (FP) PO SCH (09:38)
[2019-09-17] MEDS: GABAPENTIN 100 MG CAPSULE (FP) PO SCH ×2 (09:38→21:02)
[2019-09-17] MEDS: PRENATAL VITAMINS W/ FOLIC ACID TABLET (FP) PO SCH (09:38)
[2019-09-17] MEDS: ESTRADIOL 2 MG TABLET (NON-FORMULARY) PO SCH ×2 (09:39→21:03)
[2019-09-17] MEDS: SPIRONOLACTONE 25 MG TABLET (FP) PO SCH (09:39)
[2019-09-17] MEDS: NICOTINE 7 MG/24 HOURS TOPICAL PATCH TD SCH (09:40)
[2019-09-17] MEDS: QUEtiapine FUMARATE 50 MG TABLET PO SCH (21:03)
[2019-09-17] MEDS: THIAMINE HCL 100 MG TABLET (FP) PO SCH (21:03)
[2019-09-18] MEDS ORDERED: METHADONE HCL 10 MG TABLET ONE (05:46)
[2019-09-18] MEDS ORDERED: METHADONE HCL 40 MG DISPERSABLE TABLET ONE (05:46)
[2019-09-18] MEDS: METHADONE 40 MG, METHADONE 10 MG PO SCH (06:27)
[2019-09-18] MEDS: guaiFENesin 200 MG/10 ML 10 ML UNIT-DOSE CUPS PO PRN ×3 (06:27→20:56)
[2019-09-18] MEDS ORDERED: PT OWN MED DRAWER 7, Y5N ONE ×3 (08:28→19:39)
[2019-09-18] MEDS: NICOTINE 7 MG/24 HOURS TOPICAL PATCH TD SCH (09:34)
[2019-09-18] MEDS: PRENATAL VITAMINS W/ FOLIC ACID TABLET (FP) PO SCH (09:35)
[2019-09-18] MEDS: GABAPENTIN 100 MG CAPSULE (FP) PO SCH ×2 (09:35→21:01)
[2019-09-18] MEDS: ESTRADIOL 2 MG TABLET (NON-FORMULARY) PO SCH ×2 (09:35→21:02)
[2019-09-18] MEDS: SERTRALINE HCL 50 MG TABLET (FP) PO SCH (09:37)
[2019-09-18] MEDS: SPIRONOLACTONE 25 MG TABLET (FP) PO SCH (10:15)
[2019-09-18] MEDS ORDERED: FLUTICASONE PROP 0.05% 16 GM NASAL SPRAY NS PRN (13:02)
--- NOTE | 2019-09-18 13:10 | PN ---
[facility] Progress Note (SOAP) Subjective: Patient is c/o congestion, which she reports is resolving on its own, but she is experiencing a coughing at night. Denies fever, chills, malaise. Smoker Objective: General:no apparent distress HEENTM: normocephalic, nares patent, sinus non-tender Lungs: clear Heart: s1 s2 09/18/19 13:08 09/18/19 13:09 Vital Signs Period Temp Pulse Resp BP Sys/[place] Pulse Ox Last 24 Hr 97.2 F-97.8 F 66-72 16-20 95-104/61-66 Assessment: nasal congestion Plan: Flonase ordered ventolin tx as needed Encouraged to use cough medicine
[2019-09-18] MEDS: ALBUTEROL SO4 8 GM HFA INHALER IH PRN ×2 (15:13→20:55)
[2019-09-18] MEDS: THIAMINE HCL 100 MG TABLET (FP) PO SCH (21:00)
[2019-09-18] MEDS: QUEtiapine FUMARATE 50 MG TABLET PO SCH (21:02)
[2019-09-18] MEDS: SUVOREXANT 10 MG TABLET PO PRN (21:32)
[2019-09-19] MEDS ORDERED: METHADONE HCL 40 MG DISPERSABLE TABLET ONE (06:10)
[2019-09-19] MEDS ORDERED: METHADONE HCL 10 MG TABLET ONE (06:10)
[2019-09-19] MEDS: METHADONE 40 MG, METHADONE 10 MG PO SCH (06:28)
[2019-09-19] MEDS: guaiFENesin 200 MG/10 ML 10 ML UNIT-DOSE CUPS PO PRN ×3 (06:29→21:22)
[2019-09-19] MEDS: PRENATAL VITAMINS W/ FOLIC ACID TABLET (FP) PO SCH (09:40)
[2019-09-19] MEDS: NICOTINE 7 MG/24 HOURS TOPICAL PATCH TD SCH (09:40)
[2019-09-19] MEDS: SERTRALINE HCL 50 MG TABLET (FP) PO SCH (09:40)
[2019-09-19] MEDS: GABAPENTIN 100 MG CAPSULE (FP) PO SCH ×2 (09:40→21:19)
[2019-09-19] MEDS: SPIRONOLACTONE 25 MG TABLET (FP) PO SCH (09:40)
[2019-09-19] MEDS: ESTRADIOL 2 MG TABLET (NON-FORMULARY) PO SCH ×2 (09:41→21:20)
[2019-09-19] MEDS: ALBUTEROL SO4 8 GM HFA INHALER IH PRN (09:44)
[2019-09-19] MEDS: THIAMINE HCL 100 MG TABLET (FP) PO SCH (21:19)
[2019-09-19] MEDS: QUEtiapine FUMARATE 50 MG TABLET PO SCH (21:19)
[2019-09-19] MEDS: SUVOREXANT 10 MG TABLET PO PRN (21:20)
[2019-09-19] MEDS ORDERED: SUVOREXANT 10 MG TABLET PO PRN (22:00)
[2019-09-20] MEDS ORDERED: METHADONE HCL 10 MG TABLET ONE (05:38)
[2019-09-20] MEDS ORDERED: METHADONE HCL 40 MG DISPERSABLE TABLET ONE (05:38)
[2019-09-20] MEDS: guaiFENesin 200 MG/10 ML 10 ML UNIT-DOSE CUPS PO PRN ×2 (06:00→16:28)
[2019-09-20] MEDS: METHADONE 40 MG, METHADONE 10 MG PO SCH (06:00)
[2019-09-20] MEDS: ESTRADIOL 2 MG TABLET (NON-FORMULARY) PO SCH ×2 (09:47→21:39)
[2019-09-20] MEDS: SPIRONOLACTONE 25 MG TABLET (FP) PO SCH (09:47)
[2019-09-20] MEDS: NICOTINE 7 MG/24 HOURS TOPICAL PATCH TD SCH (09:47)
[2019-09-20] MEDS: PRENATAL VITAMINS W/ FOLIC ACID TABLET (FP) PO SCH (09:48)
[2019-09-20] MEDS: SERTRALINE HCL 50 MG TABLET (FP) PO SCH (09:48)
[2019-09-20] MEDS: GABAPENTIN 100 MG CAPSULE (FP) PO SCH ×2 (09:48→21:14)
[2019-09-20] MEDS ORDERED: PT OWN MED DRAWER 7, Y5N ONE (21:09)
[2019-09-20] MEDS: THIAMINE HCL 100 MG TABLET (FP) PO SCH (21:13)
[2019-09-20] MEDS: hydrOXYzine PAMOATE 25 MG CAPSULE (FP) PO PRN (21:14)
[2019-09-20] MEDS: QUEtiapine FUMARATE 50 MG TABLET PO SCH (21:14)
[2019-09-21] MEDS: guaiFENesin 200 MG/10 ML 10 ML UNIT-DOSE CUPS PO PRN ×3 (00:37→19:24)
[2019-09-21] MEDS ORDERED: METHADONE HCL 10 MG TABLET ONE (06:07)
[2019-09-21] MEDS ORDERED: METHADONE HCL 40 MG DISPERSABLE TABLET ONE (06:08)
[2019-09-21] MEDS: METHADONE 40 MG, METHADONE 10 MG PO SCH (06:11)
[2019-09-21] MEDS ORDERED: PT OWN MED DRAWER 7, Y5N ONE ×2 (08:16→21:12)
[2019-09-21] MEDS: SPIRONOLACTONE 25 MG TABLET (FP) PO SCH (09:10)
[2019-09-21] MEDS: GABAPENTIN 100 MG CAPSULE (FP) PO SCH ×2 (09:11→21:11)
[2019-09-21] MEDS: ESTRADIOL 2 MG TABLET (NON-FORMULARY) PO SCH ×2 (09:11→23:18)
[2019-09-21] MEDS: SERTRALINE HCL 50 MG TABLET (FP) PO SCH (09:11)
[2019-09-21] MEDS: PRENATAL VITAMINS W/ FOLIC ACID TABLET (FP) PO SCH (09:11)
[2019-09-21] MEDS: NICOTINE 7 MG/24 HOURS TOPICAL PATCH TD SCH (09:12)
[2019-09-21] MEDS: SUVOREXANT 10 MG TABLET PO PRN (21:10)
[2019-09-21] MEDS: QUEtiapine FUMARATE 50 MG TABLET PO SCH (21:11)
[2019-09-21] MEDS: THIAMINE HCL 100 MG TABLET (FP) PO SCH (21:11)
[2019-09-22] MEDS ORDERED: METHADONE HCL 10 MG TABLET ONE (05:42)
[2019-09-22] MEDS ORDERED: METHADONE HCL 40 MG DISPERSABLE TABLET ONE (05:42)
[2019-09-22] MEDS: METHADONE 40 MG, METHADONE 10 MG PO SCH (06:05)
[2019-09-22] MEDS ORDERED: PT OWN MED DRAWER 7, Y5N ONE (08:23)
[2019-09-22] MEDS: NICOTINE 7 MG/24 HOURS TOPICAL PATCH TD SCH (09:34)
[2019-09-22] MEDS: SPIRONOLACTONE 25 MG TABLET (FP) PO SCH (09:34)
[2019-09-22] MEDS: PRENATAL VITAMINS W/ FOLIC ACID TABLET (FP) PO SCH (09:35)
[2019-09-22] MEDS: GABAPENTIN 100 MG CAPSULE (FP) PO SCH ×2 (09:35→21:00)
[2019-09-22] MEDS: ESTRADIOL 2 MG TABLET (NON-FORMULARY) PO SCH ×2 (09:35→20:59)
[2019-09-22] MEDS: SERTRALINE HCL 50 MG TABLET (FP) PO SCH (09:35)
[2019-09-22] MEDS: guaiFENesin 200 MG/10 ML 10 ML UNIT-DOSE CUPS PO PRN ×2 (09:54→17:53)
--- NOTE | 2019-09-22 12:08 | PN ---
S Progress Note Note: Psychiatric nurse practitioner note: Patient scheduled for discharge tomorrow (09/23/19). A 30 day prescription of Zoloft 100mg + Seroquel 50mg HS + Gabapentin 100mg BID was electronically sent to [facility], [address] [place] [address].
[2019-09-22] MEDS: hydrOXYzine PAMOATE 25 MG CAPSULE (FP) PO PRN (17:53)
[2019-09-22] MEDS: QUEtiapine FUMARATE 50 MG TABLET PO SCH (21:00)
[2019-09-22] MEDS: THIAMINE HCL 100 MG TABLET (FP) PO SCH (21:00)
[2019-09-22] MEDS: SUVOREXANT 10 MG TABLET PO PRN (21:01)
[2019-09-23] MEDS: guaiFENesin 200 MG/10 ML 10 ML UNIT-DOSE CUPS PO PRN ×2 (00:15→05:21)
[2019-09-23] MEDS ORDERED: PT OWN MED DRAWER 7, Y5N ONE ×2 (04:57→08:38)
[2019-09-23] MEDS: ALBUTEROL SO4 8 GM HFA INHALER IH PRN (04:58)
[2019-09-23] MEDS ORDERED: METHADONE HCL 10 MG TABLET ONE (05:31)
[2019-09-23] MEDS ORDERED: METHADONE HCL 40 MG DISPERSABLE TABLET ONE (05:32)
[2019-09-23] MEDS ORDERED: METHADONE 40 MG, METHADONE 10 MG PO SCH (06:00)
[2019-09-23 07:01] VITALS: TEMP 97.5
[2019-09-23 09:09] VITALS: BP 111/70; PULSE 72
[2019-09-23] MEDS: NICOTINE 7 MG/24 HOURS TOPICAL PATCH TD SCH (09:40)
[2019-09-23] MEDS: PRENATAL VITAMINS W/ FOLIC ACID TABLET (FP) PO SCH (09:40)
[2019-09-23] MEDS: ESTRADIOL 2 MG TABLET (NON-FORMULARY) PO SCH (09:40)
[2019-09-23] MEDS: SERTRALINE HCL 50 MG TABLET (FP) PO SCH (09:41)
[2019-09-23] MEDS: SPIRONOLACTONE 25 MG TABLET (FP) PO SCH (09:41)
[2019-09-23] MEDS: GABAPENTIN 100 MG CAPSULE (FP) PO SCH (09:41)
--- NOTE | 2019-09-23 13:15 | DS ---
[facility] Rehab Discharge Summary - [facility] Rehab Discharge Summary Admission Date: 09/09/19 Discharge Date: 09/23/19 - History Present History: Alcohol dependence, Cocaine dependence, MMTP Pertinent Past History: 44 yo here for ETOH, Cocaine use. Denies seizures/blackouts. One overdose - 1 year ago. Heroin use since age 25[address] [facility] MMTP. Current dose is 50 mg PO daily Crack/cocaine use began at age 20. Alcohol use began at age 12. Was drinking about 1/5th liquor daily. Nicotine use began at 10. Currently smokes 5 cig/day. PMHx: Male to Female transgender; EK08/01/19: NSR MHHx: Anxiety. Depression. Denies thoughts of harming self or others. Last saw a Provider, in community, 5 months ago. SHx: Domiciled. Unemployed. Denies legal issues. - Discharge Physical Exam Vital Signs: Vital Signs Temperature 97.5 F L 09/23/19 07:00 Pulse Rate 72 09/23/19 09:08 Respiratory Rate 18 09/23/19 09:08 Blood Pressure 111/70 09/23/19 09:08 O2 Sat by Pulse Oximetry (%) Pertinent Admission Physical Exam Findings: General Appearance: No apparent distress HEENTM: Normocephalic,SUDHA, Perforated nasal septum Respiratory: Lungs Clear Neck: Supple Cardiology: S1, S2 Abdominal: +Bowel Sounds, Non Tender, Soft, Protuberent Musculoskeletal: full range of Motion, Gait Steady Neurological:plant senior manager II-XII NML intact, - Treatment Discharge Condition: Outpatient referral accepted (Medically stable for discharge. Patient will return to [facility] for MMTP, she is on a waiting list for [facility] and a longterm house in [place].) Hospital Course: Patient attended groups, met with her counselor 1:1, was seen by the psychiatric service. She c/o nasal congestion, which resolved and the BP parameters were adjusted for her spirodactone. There were no acute or urgent medical problems while she was in rehab. She was adherent to her medication regimen and her treatment plan. - Medication Discharge Medications: Ambulatory Orders Estradiol 4 mg PO BID 08/01/19 Methadone [Dolophine -] 50 mg PO DAILY 08/01/19 Quetiapine Fumarate [Seroquel -] 50 mg PO DAILY 08/01/19 Spironolactone [Aldactone] 100 mg PO DAILY 08/01/19 Sertraline HCl [Zoloft -] 100 mg PO DAILY 09/09/19 Gabapentin [Neurontin] 100 mg PO BID 09/11/19 Gabapentin [Neurontin -] 100 mg PO BID #60 capsule 09/22/19 Quetiapine Fumarate [Seroquel -] 50 mg PO HS #30 tablet 09/22/19 Sertraline HCl [Zoloft -] 100 mg PO DAILY #60 tablet 09/22/19 - Medication-Assisted Treatment (MAT) Medication-Assisted Treatment (MAT): Yes MAT Follow-up Referral: MMTP - Discharge Instructions Diet, activity, other medical instructions: Diet: as tolerated Activity: as tolerated Other medical instructions: Please keep aftercare referral. - Diagnosis (1) Alcohol use disorder Current Visit: Yes Status: Chronic (2) Cocaine dependence, uncomplicated Current Visit: Yes Status: Chronic (3) Opioid dependence on agonist therapy Current Visit: Yes Status: Chronic - Follow-up Referral Minutes to complete discharge: 20 - AMA Did Patient Leave Against Medical Advice: No
[2019-09-23] MEDS ORDERED: SUVOREXANT 10 MG TABLET PO PRN (22:00)
== END 2019-09-23 14:02 | disposition home or self-care (01) | DRG 772 ==
LOC: YASAS 16:18 → Y3E 19:46
PROVIDERS: ADMIT Neuromusculoskeletal Medicine & OMM; ATTEND Neuromusculoskeletal Medicine & OMM
PROC: HZ42ZZZ Group Counseling for Substance Abuse Treatment, Cognitive-Behavioral (ICD-10-PCS; principal; 2019-09-09)
DX: F10.20 Alcohol dependence, uncomplicated (principal); F11.20 Opioid dependence, uncomplicated; F13.20 Sedative, hypnotic or anxiolytic dependence, uncomplicated; F14.20 Cocaine dependence, uncomplicated; F17.210 Nicotine dependence, cigarettes, uncomplicated; F33.1 Major depressive disorder, recurrent, moderate; F43.10 Post-traumatic stress disorder, unspecified; F64.0 Transsexualism; R09.81 Nasal congestion; G47.00 Insomnia, unspecified; J45.909 Unspecified asthma, uncomplicated; Z87.890 Personal history of sex reassignment; Z62.810 Personal history of physical and sexual abuse in childhood; Z91.410 Personal history of adult physical and sexual abuse; Z56.0 Unemployment, unspecified
CPT/HCPCS: 36415; 80053; 81003; 85027; 86593

== ENCOUNTER 2019-10-25 18:14 | Inpatient (IN) | payer OTHER ==
[2019-10-25 18:44] VITALS: BMI 34.3
--- NOTE | 2019-10-25 20:48 | HP ---
"CIWA Score Nausea/Vomitin Muscle Tremors: 4-Moderate,w/Arms Extend Anxiety: 1-Mildly Anxious Agitation: 3 Paroxysmal Sweats: 3 (Increased facial moisture) Orientation: 0-Oriented Tacttile Disturbances: 0-None Auditory Disturbances: 0-None Visual Disturbances: 0-None Headache: 0-None Present CIWA-Ar Total Score: 14 - Admission Criteria OASAS Guidelines: Admission for Medically Managed Detox: Requires at least one of the followin. CIWA greater than 12 2. Seizures within the past 24 hours 3. Delirium tremens within the past 24 hours 4. Hallucinations within the past 24 hours 5. Acute intervention needed for co occurring medical disorder 6. Acute intervention needed for co occurring psychiatric disorder 7. Severe withdrawal that cannot be handled at a lower level of care (continued vomiting, continued diarrhea, abnormal vital signs) requiring intravenous medication and/or fluids 8. Patient presents the following: CIWA greater than 12 Admission Criteria Met: Admission criteria met Admitting History and Physical - Smoking History Smoking history: Current every day smoker Have you smoked in the past 12 months: Yes Aproximately how many cigarettes per day: 8 - Alcohol/Substance Use Hx Alcohol Use: Yes Admission ROS [facility] Chief Complaint: Here because I almost overdosed last night. Allergies/Adverse Reactions: Allergies Allergy/AdvReac Type Severity Reaction Status Date / Time No Known Allergies Allergy Verified 10/25/19 18:30 History of Present Illness: 44 yo presents for admission to detox for alcohol and opoid withdrawal. Utox: + JO-ANN/FEN/MOP/MTD LUCY: 0.0 Denies seizures/blackouts. One overdose - 1 year ago. Possible overdose yesterday. States was given Narcan yesterday because friend felt that patient was having trouble breathing although awake. Patient states got really sick, started sweating, cramping, and other symptoms r/t precipitated withdrawal. States this really affected her physically. Heroin use since age 25. Currently on PROMESA MMTP. Current dose is 70 mg PO daily. Last medicated today. Crack/cocaine use began at age 20. Last used yesterday. Alcohol use began at age 12. Was drinking about 1/2 to 1-5th liquor daily. Last drank 6 am today of rum and [place]. Nicotine use began at 10. Currently smokes 3-4 cig/day. PMHx: Male to Female transgender; Prefers to be called Abiola EK08/01/19: NSR MHHx: Anxiety. Mild. Depression. Denies thoughts of harming self or others. Last saw a MH Provider, in community, 2 months ago. SHx: Domiciled. Unemployed. Denies legal issues. Search Terms: Ricardo Porter, 1975 Search Date: 10/25/2019 08:56:45 PM The Drug Utilization Report below displays all of the controlled substance prescriptions, if any, that your patient has filled in the last twelve months. The information displayed on this report is compiled from pharmacy submissions to the Department, and accurately reflects the information as submitted by the pharmacies. This report was requested by: Emily Tao | Reference #: [id number] There are no results for the search terms that you entered. Exam Limitations: No Limitations - Ebola screening Have you traveled outside of the country in the last 21 days: No Have you had contact with anyone from an Ebola affected area: No Have you been sick,other than usual withdrawal symptoms: No Do you have a fever: No - Review of Systems Constitutional: Chills, Diaphoresis, Changes in sleep (Difficulty falling asleep.), Weight Stable EENT: reports: Dental Problems (Oral sores from dentures. Chews and swallows ok. ) Respiratory: reports: No Symptoms reported Cardiac: reports: No Symptoms Reported GI: reports: Diarrhea (Loose stool), Nausea, Indigestion (Heart burn), Abdominal cramping : reports: No Symptoms Reported Musculoskeletal: reports: Back Pain (Chronic intermttient sharp shooting pain in (R) hip to ankle. Triggered by agitation or heavy lifting. Improves w/ laying down and drugs) Integumentary: reports: No Symptoms Reported Neuro: reports: Tremors Endocrine: reports: Increased Thirst Hematology: reports: Anemia (Sickle cell trait) Psychiatric: reports: Judgement Intact, Orientated x3, Agitated, Anxious, Depressed (Mild. Denies thoughts of harming self or others.) Patient History - Patient Medical History Hx Anemia: Yes Hx Asthma: No Hx Chronic Obstructive Pulmonary Disease (COPD): No Hx Cancer: No Hx Cardiac Disorders: No Hx Congestive Heart Failure: No Hx Hypertension: No Hx Hypercholesterolemia: No Hx Pacemaker: No HX Cerebrovascular Accident: No Hx Seizures: No Hx Dementia: No Hx Diabetes: No Hx Gastrointestinal Disorders: No Hx Liver Disease: No Hx Genitourinary Disorders: No Hx Sexually Transmitted Disorders: No Hx Renal Disease (ESRD): No Hx Thyroid Disease: No Hx Human Immunodeficiency Virus (HIV): No Hx Hepatitis C: No Hx Depression: Yes Hx Suicide Attempt: No Hx Bipolar Disorder: No Hx Schizophrenia: No - Patient Surgical History Past Surgical History: No Hx Neurologic Surgery: No Hx Cataract Extraction: No Hx Cardiac Surgery: No Hx Lung Surgery: No Hx Breast Surgery: No Hx Breast Biopsy: No Hx Abdominal Surgery: No Hx Appendectomy: No Hx Cholecystectomy: No Hx Genitourinary Surgery: No Hx Section: No Hx Orthopedic Surgery: No Anesthesia Reaction: Yes - PPD History Previous Implant?: Yes Documented Results: Negative w/proof Implanted On Prior R Admission?: Yes Date: 08/03/19 PPD to be Administered?: Yes - Smoking Cessation Smoking history: Current every day smoker Have you smoked in the past 12 months: Yes Aproximately how many cigarettes per day: 4 Hx Chewing Tobacco Use: No Initiated information on smoking cessation: Yes 'Breaking Loose' booklet given: 10/25/19 - Substance & Tx. History Hx Alcohol Use: Yes Hx Substance Use: Yes Substance Use Type: Alcohol, Cocaine, Heroin Hx Substance Use Treatment: Yes (detox, rehab, MMTP) - Substances abused Heroin Substance route: Inhalation Frequency: Daily Amount used: 3-4 bags Age of first use: 20 Date of last use: 10/25/19 Alcohol Substance route: Oral Frequency: Daily Amount used: rum- fifth Age of first use: 12 Date of last use: 10/25/19 Crack Substance route: Smoking Frequency: Daily Amount used: $30-100 Age of first use: 20 Date of last use: 10/25/19 Alprazolam (Xanax) Other (specify): 2mg Substance route: Oral Frequency: Daily Amount used: 2 tabs Age of first use: 15 Date of last use: 10/23/19 Admission Physical Exam BHS - Vital Signs Vital Signs: Vital Signs - 24 hr 10/25/19 18:29 Temperature 98.8 F Pulse Rate 73 Respiratory 18 Rate Blood Pressure 121/67 - Physical General Appearance: Yes: Nourished, Obese, Tremorous, Sweating (Increased facial moisture), Anxious HEENTM: Yes: EOMI, Hearing grossly Normal, Normocephalic, Normal Voice, SUDHA, Pharynx Normal, Other (Perforated nasal septum) Respiratory: Yes: Lungs Clear, Normal Breath Sounds, No Respiratory Distress Neck: Yes: No masses,lesions,Nodules, Supple Breast: Yes: Breast Exam Deferred Cardiology: Yes: Regular Rhythm, Regular Rate, S1, S2 Abdominal: Yes: Non Tender, Soft, Increased Bowel Sounds, Protuberent ( Increased abdominal adiposity) Genitourinary: Yes: Within Normal Limits Back: Yes: Normal Inspection Musculoskeletal: Yes: full range of Motion, Gait Steady Extremities: Yes: Normal Capillary Refill, Tremors, Other (Peripheral pulses +) Neurological: Yes: Fully Oriented, Alert, Motor Strength 5/5, Normal Mood/Affect , Normal Response Integumentary: Yes: Normal Color, Warm - Diagnostic (1) Alcohol dependence with withdrawal, uncomplicated Current Visit: No Status: Chronic (2) Cocaine dependence, uncomplicated Current Visit: No Status: Chronic (3) Insomnia Current Visit: No Status: Chronic (4) [id number] transgender person Current Visit: No Status: Chronic (5) Nicotine dependence Current Visit: No Status: Chronic Qualifiers: Nicotine product type: cigarettes Substance use status: uncomplicated Qualified Code(s): F17.210 - Nicotine dependence, cigarettes, uncomplicated (6) Opioid dependence on agonist therapy Current Visit: No Status: Chronic (7) Perforated nasal septum Current Visit: Yes Status: Acute Cleared for Admission S - Detox or Rehab [facility] Level of Care: Medically Managed Detox Regimen/Protocol: Librium Claeared for Rehab Admission: No Breathalyzer - Breathalyzer Breathalyzer: 0 Urine Drug Screen - Test Device Lot number: [id number] Expiration date: 08/19/21 - Control Is test valid?: Yes - Results Drug screen NEGATIVE: No Urine drug screen results: JO-ANN-Cocaine, FEN-Fentanyl, MOP-Opiates, MTD-Methadone Inpatient Rehab Admission - Rehab Decision to Admit Inpatient rehab admission?: No"
[2019-10-25] MEDS ORDERED: BISMUTH SUBSALICYLATE 524 MG/30 ML UD PO PRN (21:12)
[2019-10-25] MEDS ORDERED: MAGNESIUM HYDROX 2400MG/30ML ORAL SUSPENSION 30 ML CUP PO PRN (21:12)
[2019-10-25] MEDS ORDERED: MENTHOL/PHENOL 1 EACH UD MM PRN (21:12)
[2019-10-25] MEDS ORDERED: MELATONIN 5 MG TABLETS PO PRN (21:12)
[2019-10-25] MEDS ORDERED: MAGNESIUM CITRATE 300 ML BOTTLE PO PRN (21:12)
[2019-10-25] MEDS ORDERED: chlordiazePOXIDE HCL 25 MG CAPSULE PO ONE (21:12)
[2019-10-25] MEDS ORDERED: MAG HYDROX/AL HYDROX/SIMETH 30 ML UNIT-DOSE CUP PO PRN (21:12)
[2019-10-25] MEDS ORDERED: ACETAMINOPHEN 325 MG TABLET (FP) PO PRN ×2 (21:12)
[2019-10-25] MEDS ORDERED: NICOTINE POLACRILEX 2 MG GUM BUC PRN (21:12)
[2019-10-25] MEDS ORDERED: NAPROXEN 500 MG TABLET PO PRN (21:18)
[2019-10-25] MEDS: THIAMINE HCL 100 MG TABLET (FP) PO SCH (22:41)
[2019-10-25] MEDS: ESTRADIOL 2 MG TABLET (NON-FORMULARY) PO SCH (22:43)
[2019-10-26] MEDS ORDERED: chlordiazePOXIDE HCL 10 MG CAPSULE PO ONE (00:01)
[2019-10-26] MEDS: chlordiazePOXIDE HCL 25 MG CAPSULE PO SCH ×4 (06:53→22:36)
[2019-10-26] MEDS ORDERED: METHADONE HCL 40 MG DISPERSABLE TABLET PO SCH (10:15)
[2019-10-26] MEDS: PRENATAL VITAMINS W/ FOLIC ACID TABLET (FP) PO SCH (10:23)
[2019-10-26 10:42] LABS: HEMATOCRIT 39.2 % (35.4-49); HEMOGLOBIN 13.2 GM/dL (11.7-16.9); MCH 30.4 pg (25.7-33.7); MCHC 33.6 g/dl (32.0-35.9); MEAN CELL VOLUME 90.4 fl (80-96); MEAN PLT VOLUME 7.7 fl (7.5-11.1); PLATELET COUNT 287 K/MM3 (134-434); RBC 4.34 M/mm3 (4.00-5.60); RDW 12.9 % (11.9-15.9)
[2019-10-26 10:56] LABS: ALBUMIN 3.1 g/dl (3.4-5.0); BILIRUBIN,TOTAL 0.4 mg/dL (0.2-1); BLOOD UREA NITROGEN 16.9 mg/dL (7-18); CALCIUM 8.6 mg/dL (8.5-10.1); CREATININE 1.1 mg/dL (0.55-1.3); POTASSIUM 4.1 mmol/L (3.5-5.1); TOT PROT 6.9 g/dl (6.4-8.2)
[2019-10-26] MEDS ORDERED: METHADONE HCL 40 MG DISPERSABLE TABLET ONE (11:00)
[2019-10-26] MEDS ORDERED: METHADONE HCL 10 MG TABLET ONE (11:00)
[2019-10-26] MEDS: METHADONE 40 MG, METHADONE 30 MG PO SCH (11:01)
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
[2019-10-26] MEDS: SPIRONOLACTONE 25 MG TABLET (FP) PO SCH (12:20)
[2019-10-26] MEDS: ESTRADIOL 2 MG TABLET (NON-FORMULARY) PO SCH ×2 (12:21→22:37)
--- NOTE | 2019-10-26 13:06 | PN ---
[facility] CIWA - CIWA Score Nausea/Vomitin-No Nausea/No Vomiting Muscle Tremors: None Anxiety: 3 Agitation: 2 Paroxysmal Sweats: 3 Orientation: 0-Oriented Tacttile Disturbances: 0-None Auditory Disturbances: 0-None Visual Disturbances: 0-None Headache: 2-Mild CIWA-Ar Total Score: 10 S Progress Note (SOAP) Subjective: c/o anxiety, headache, and sweats. Objective: 10/26/19 13:09 Vital Signs 10/26/19 10/26/19 06:54 08:47 Temperature 97 F L 98.0 F Pulse Rate 63 75 Respiratory 16 19 Rate Blood Pressure 111/60 108/64 Laboratory Last Values WBC 10.0 K/mm3 (4.0-10.0) 10/26/19 07:30 RBC 4.34 M/mm3 (4.00-5.60) 10/26/19 07:30 Hgb 13.2 GM/dL (11.7-16.9) 10/26/19 07:30 Hct 39.2 % (35.4-49) 10/26/19 07:30 MCV 90.4 fl (80-96) 10/26/19 07:30 MCH 30.4 pg (25.7-33.7) 10/26/19 07:30 MCHC 33.6 g/dl (32.0-35.9) 10/26/19 07:30 RDW 12.9 % (11.9-15.9) 10/26/19 07:30 Plt Count 287 K/MM3 (134-434) 10/26/19 07:30 MPV 7.7 fl (7.5-11.1) D 10/26/19 07:30 Sodium 139 mmol/L (136-145) 10/26/19 07:30 Potassium 4.1 mmol/L (3.5-5.1) 10/26/19 07:30 Chloride 105 mmol/L (98-107) 10/26/19 07:30 Carbon Dioxide 29 mmol/L (21-32) 10/26/19 07:30 Anion Gap 5 MMOL/L (8-16) L 10/26/19 07:30 BUN 16.9 mg/dL (7-18) 10/26/19 07:30 Creatinine 1.1 mg/dL (0.55-1.3) 10/26/19 07:30 Est GFR (CKD-EPI)AfAm 92.81 10/26/19 07:30 Est GFR (CKD-EPI)NonAf 80.08 10/26/19 07:30 Random Glucose 86 mg/dL (74-106) 10/26/19 07:30 Calcium 8.6 mg/dL (8.5-10.1) 10/26/19 07:30 Total Bilirubin 0.4 mg/dL (0.2-1) 10/26/19 07:30 AST 17 U/L (15-37) 10/26/19 07:30 ALT 17 U/L (13-61) 10/26/19 07:30 Alkaline Phosphatase 86 U/L (45-117) 10/26/19 07:30 Total Protein 6.9 g/dl (6.4-8.2) 10/26/19 07:30 Albumin 3.1 g/dl (3.4-5.0) L 10/26/19 07:30 RPR Titer Nonreactive (NONREACTIVE) 10/26/19 07:30 Labs noted Assessment: 10/26/19 13:10 AOX3, in no acute respiratory distress. Full ROM, ambulating in the unit. Withdrawal symptoms. Plan: continue detox.
--- NOTE | 2019-10-26 16:31 | EKG ---
Test Reason : Blood Pressure : / mmHG Vent. Rate : 059 BPM Atrial Rate : 059 BPM P-R Int : 176 ms QRS Dur : 088 ms QT Int : 450 ms P-R-T Axes : 041 054 034 degrees QTc Int : 445 ms SINUS BRADYCARDIA OTHERWISE NORMAL ECG WHEN COMPARED WITH ECG OF 01-AUG-2019 20:13, NO SIGNIFICANT CHANGE WAS FOUND Confirmed by MD PICHARDO MOYSES ([id number]) on 10/26/2019 4:31:12 PM Referred By: Confirmed By:KAHLIL PICHARDO MD
[2019-10-26] MEDS: THIAMINE HCL 100 MG TABLET (FP) PO SCH (22:36)
[2019-10-26] MEDS: GABAPENTIN 100 MG CAPSULE PO SCH (22:36)
[2019-10-26] MEDS: QUEtiapine FUMARATE 50 MG TABLET PO SCH (22:36)
[2019-10-27] MEDS ORDERED: chlordiazePOXIDE HCL 10 MG CAPSULE PO PRN
[2019-10-27] MEDS ORDERED: METHADONE HCL 10 MG TABLET ONE (04:45)
[2019-10-27] MEDS ORDERED: METHADONE HCL 40 MG DISPERSABLE TABLET ONE (04:45)
[2019-10-27] MEDS: chlordiazePOXIDE HCL 25 MG CAPSULE PO SCH ×4 (06:22→22:38)
[2019-10-27] MEDS: METHADONE 40 MG, METHADONE 30 MG PO SCH (06:22)
--- NOTE | 2019-10-27 09:46 | PN ---
[facility] CIWA - CIWA Score Nausea/Vomitin-Mild Nausea/No Vomiting Muscle Tremors: 3 Anxiety: 2 Agitation: 1-Slight > Activity Paroxysmal Sweats: 2 Orientation: 0-Oriented Tacttile Disturbances: 0-None Auditory Disturbances: 0-None Visual Disturbances: 0-None Headache: 0-None Present CIWA-Ar Total Score: 9 S Progress Note (SOAP) Subjective: 44 years old obese male admitted on 10/25/19 for alcohol and benzo withdrawal sx management treating with librium detoxr regiments receiving methadone 70mg po daily ate breakfast resting on bed trouble sleeping last night tremor Objective: 10/27/19 10:10 Vital Signs Temperature 97.9 F 10/27/19 06:34 Pulse Rate 59 L 10/27/19 06:34 Respiratory Rate 18 10/27/19 06:34 Blood Pressure 106/65 10/27/19 06:34 O2 Sat by Pulse Oximetry (%) Laboratory Last Values WBC 10.0 K/mm3 (4.0-10.0) 10/26/19 07:30 RBC 4.34 M/mm3 (4.00-5.60) 10/26/19 07:30 Hgb 13.2 GM/dL (11.7-16.9) 10/26/19 07:30 Hct 39.2 % (35.4-49) 10/26/19 07:30 MCV 90.4 fl (80-96) 10/26/19 07:30 MCH 30.4 pg (25.7-33.7) 10/26/19 07:30 MCHC 33.6 g/dl (32.0-35.9) 10/26/19 07:30 RDW 12.9 % (11.9-15.9) 10/26/19 07:30 Plt Count 287 K/MM3 (134-434) 10/26/19 07:30 MPV 7.7 fl (7.5-11.1) D 10/26/19 07:30 Sodium 139 mmol/L (136-145) 10/26/19 07:30 Potassium 4.1 mmol/L (3.5-5.1) 10/26/19 07:30 Chloride 105 mmol/L (98-107) 10/26/19 07:30 Carbon Dioxide 29 mmol/L (21-32) 10/26/19 07:30 Anion Gap 5 MMOL/L (8-16) L 10/26/19 07:30 BUN 16.9 mg/dL (7-18) 10/26/19 07:30 Creatinine 1.1 mg/dL (0.55-1.3) 10/26/19 07:30 Est GFR (CKD-EPI)AfAm 92.81 10/26/19 07:30 Est GFR (CKD-EPI)NonAf 80.08 10/26/19 07:30 Random Glucose 86 mg/dL (74-106) 10/26/19 07:30 Calcium 8.6 mg/dL (8.5-10.1) 10/26/19 07:30 Total Bilirubin 0.4 mg/dL (0.2-1) 10/26/19 07:30 AST 17 U/L (15-37) 10/26/19 07:30 ALT 17 U/L (13-61) 10/26/19 07:30 Alkaline Phosphatase 86 U/L (45-117) 10/26/19 07:30 Total Protein 6.9 g/dl (6.4-8.2) 10/26/19 07:30 Albumin 3.1 g/dl (3.4-5.0) L 10/26/19 07:30 RPR Titer Nonreactive (NONREACTIVE) 10/26/19 07:30 lab noted Assessment: 10/27/19 10:10 alcohol and benzo Plan: librium regiment
[2019-10-27] MEDS: SPIRONOLACTONE 25 MG TABLET (FP) PO SCH (10:15)
[2019-10-27] MEDS: ESTRADIOL 2 MG TABLET (NON-FORMULARY) PO SCH ×2 (10:15→22:38)
[2019-10-27] MEDS: GABAPENTIN 100 MG CAPSULE PO SCH ×2 (10:15→22:38)
[2019-10-27] MEDS: PRENATAL VITAMINS W/ FOLIC ACID TABLET (FP) PO SCH (10:15)
[2019-10-27] MEDS: SERTRALINE HCL 50 MG TABLET (FP) PO SCH (10:15)
[2019-10-27] MEDS: QUEtiapine FUMARATE 50 MG TABLET PO SCH (22:38)
[2019-10-27] MEDS: THIAMINE HCL 100 MG TABLET (FP) PO SCH (22:38)
[2019-10-28] MEDS ORDERED: METHADONE HCL 10 MG TABLET ONE (04:20)
[2019-10-28] MEDS ORDERED: METHADONE HCL 40 MG DISPERSABLE TABLET ONE (04:20)
[2019-10-28] MEDS: chlordiazePOXIDE HCL 10 MG CAPSULE PO SCH ×4 (06:31→22:58)
[2019-10-28] MEDS: METHADONE 40 MG, METHADONE 30 MG PO SCH (06:31)
[2019-10-28] MEDS: SPIRONOLACTONE 25 MG TABLET (FP) PO SCH (10:25)
[2019-10-28] MEDS: SERTRALINE HCL 50 MG TABLET (FP) PO SCH (10:25)
[2019-10-28] MEDS: ESTRADIOL 2 MG TABLET (NON-FORMULARY) PO SCH ×2 (10:25→22:58)
[2019-10-28] MEDS: PRENATAL VITAMINS W/ FOLIC ACID TABLET (FP) PO SCH (10:25)
[2019-10-28] MEDS: GABAPENTIN 100 MG CAPSULE PO SCH ×2 (10:25→22:58)
--- NOTE | 2019-10-28 15:09 | PN ---
[facility] CIWA - CIWA Score Nausea/Vomitin-No Nausea/No Vomiting Muscle Tremors: 1-None Visible, but [place] Anxiety: 1-Mildly Anxious Agitation: 1-Slight > Activity Paroxysmal Sweats: 1-Minimal Palms Moist Orientation: 0-Oriented Tacttile Disturbances: 0-None Auditory Disturbances: 0-None Visual Disturbances: 1-Very Mild Sensitivity Headache: 0-None Present CIWA-Ar Total Score: 5 S Progress Note (SOAP) Subjective: 44 years old male admitted on 10/25/19 for alcohol and benzo withdrawal sx management treating with librium detox regiment feeling better today less tremor mild anxiety received methadone 70 mg po today strong recommend the patient to attend behavior and psychosocial therapies groups and meetings while in detox Objective: 10/28/19 15:06 Vital Signs Temperature 97.7 F 10/28/19 12:45 Pulse Rate 73 10/28/19 12:45 Respiratory Rate 18 10/28/19 12:45 Blood Pressure 96/65 10/28/19 12:45 O2 Sat by Pulse Oximetry (%) Laboratory Last Values WBC 10.0 K/mm3 (4.0-10.0) 10/26/19 07:30 RBC 4.34 M/mm3 (4.00-5.60) 10/26/19 07:30 Hgb 13.2 GM/dL (11.7-16.9) 10/26/19 07:30 Hct 39.2 % (35.4-49) 10/26/19 07:30 MCV 90.4 fl (80-96) 10/26/19 07:30 MCH 30.4 pg (25.7-33.7) 10/26/19 07:30 MCHC 33.6 g/dl (32.0-35.9) 10/26/19 07:30 RDW 12.9 % (11.9-15.9) 10/26/19 07:30 Plt Count 287 K/MM3 (134-434) 10/26/19 07:30 MPV 7.7 fl (7.5-11.1) D 10/26/19 07:30 Sodium 139 mmol/L (136-145) 10/26/19 07:30 Potassium 4.1 mmol/L (3.5-5.1) 10/26/19 07:30 Chloride 105 mmol/L (98-107) 10/26/19 07:30 Carbon Dioxide 29 mmol/L (21-32) 10/26/19 07:30 Anion Gap 5 MMOL/L (8-16) L 10/26/19 07:30 BUN 16.9 mg/dL (7-18) 10/26/19 07:30 Creatinine 1.1 mg/dL (0.55-1.3) 10/26/19 07:30 Est GFR (CKD-EPI)AfAm 92.81 10/26/19 07:30 Est GFR (CKD-EPI)NonAf 80.08 10/26/19 07:30 Random Glucose 86 mg/dL (74-106) 10/26/19 07:30 Calcium 8.6 mg/dL (8.5-10.1) 10/26/19 07:30 Total Bilirubin 0.4 mg/dL (0.2-1) 10/26/19 07:30 AST 17 U/L (15-37) 10/26/19 07:30 ALT 17 U/L (13-61) 10/26/19 07:30 Alkaline Phosphatase 86 U/L (45-117) 10/26/19 07:30 Total Protein 6.9 g/dl (6.4-8.2) 10/26/19 07:30 Albumin 3.1 g/dl (3.4-5.0) L 10/26/19 07:30 RPR Titer Nonreactive (NONREACTIVE) 10/26/19 07:30 lab noted Assessment: 10/28/19 15:08 alcohol and benzo Plan: librium regiment
[2019-10-28] MEDS ORDERED: ONDANSETRON *ODT* 4 MG TABLET SL PRN (19:30)
[2019-10-28] MEDS ORDERED: TRIMETHOBENZAMIDE HCL 200MG/2ML INJ IM ONE (21:51)
--- NOTE | 2019-10-28 21:52 | PN ---
S Progress Note Note: Patient vomited x 1 Vital Signs Temperature 97.0 F L 10/28/19 21:35 Pulse Rate 99 H 10/28/19 21:35 Respiratory Rate 18 10/28/19 21:35 Blood Pressure 120/80 10/28/19 21:35 O2 Sat by Pulse Oximetry (%) Action: Tigan 200mg IM ordered
[2019-10-28] MEDS: THIAMINE HCL 100 MG TABLET (FP) PO SCH (22:58)
[2019-10-28] MEDS: QUEtiapine FUMARATE 50 MG TABLET PO SCH (22:58)
[2019-10-29] MEDS ORDERED: METHADONE HCL 40 MG DISPERSABLE TABLET ONE (04:43)
[2019-10-29] MEDS ORDERED: METHADONE HCL 10 MG TABLET ONE (04:43)
[2019-10-29] MEDS ORDERED: chlordiazePOXIDE HCL 10 MG CAPSULE PO SCH (05:00)
[2019-10-29] MEDS: METHADONE 40 MG, METHADONE 30 MG PO SCH (05:46)
[2019-10-29 06:12] VITALS: BP 125/75; PULSE 80; TEMP 98.5
--- NOTE | 2019-10-29 10:21 | DS ---
[facility] Detox Discharge Summary Admission Date: 10/25/19 Discharge Date: 10/29/19 - History Present History: Alcohol Dependence, Sedative Dependence Additional Comments: 44 years old male admitted on 10/25/19 for alcohol and benzo withdrawal sx management treated with librium detox regiment patient has completed the librium regiment and tolerated well seen by psychiatrist while in detox resume zoloft seroquel and gabapentin patient is doing well through out the detox patient is alert oriented x 3 no vomiting today after breakfast speech clearly coherently steady gait respiratory clear lungs bilaterally on auscultation extremities full range of motion skin warm and dry Pertinent Past History: patient prefers [facility] and has 10 am intake appointment today for discharge time: 8minutes - Physical Exam Results Vital Signs: Vital Signs Temperature 98.5 F 10/29/19 06:12 Pulse Rate 80 10/29/19 06:12 Respiratory Rate 18 10/29/19 06:12 Blood Pressure 125/75 10/29/19 06:12 O2 Sat by Pulse Oximetry (%) Pertinent Admission Physical Exam Findings: alcohol and benzo withdrawal Laboratory Last Values WBC 10.0 K/mm3 (4.0-10.0) 10/26/19 07:30 RBC 4.34 M/mm3 (4.00-5.60) 10/26/19 07:30 Hgb 13.2 GM/dL (11.7-16.9) 10/26/19 07:30 Hct 39.2 % (35.4-49) 10/26/19 07:30 MCV 90.4 fl (80-96) 10/26/19 07:30 MCH 30.4 pg (25.7-33.7) 10/26/19 07:30 MCHC 33.6 g/dl (32.0-35.9) 10/26/19 07:30 RDW 12.9 % (11.9-15.9) 10/26/19 07:30 Plt Count 287 K/MM3 (134-434) 10/26/19 07:30 MPV 7.7 fl (7.5-11.1) D 10/26/19 07:30 Sodium 139 mmol/L (136-145) 10/26/19 07:30 Potassium 4.1 mmol/L (3.5-5.1) 10/26/19 07:30 Chloride 105 mmol/L (98-107) 10/26/19 07:30 Carbon Dioxide 29 mmol/L (21-32) 10/26/19 07:30 Anion Gap 5 MMOL/L (8-16) L 10/26/19 07:30 BUN 16.9 mg/dL (7-18) 10/26/19 07:30 Creatinine 1.1 mg/dL (0.55-1.3) 10/26/19 07:30 Est GFR (CKD-EPI)AfAm 92.81 10/26/19 07:30 Est GFR (CKD-EPI)NonAf 80.08 10/26/19 07:30 Random Glucose 86 mg/dL (74-106) 10/26/19 07:30 Calcium 8.6 mg/dL (8.5-10.1) 10/26/19 07:30 Total Bilirubin 0.4 mg/dL (0.2-1) 10/26/19 07:30 AST 17 U/L (15-37) 10/26/19 07:30 ALT 17 U/L (13-61) 10/26/19 07:30 Alkaline Phosphatase 86 U/L (45-117) 10/26/19 07:30 Total Protein 6.9 g/dl (6.4-8.2) 10/26/19 07:30 Albumin 3.1 g/dl (3.4-5.0) L 10/26/19 07:30 RPR Titer Nonreactive (NONREACTIVE) 10/26/19 07:30 lab noted - Treatment Hospital Course: Detox Protocol Followed, Detoxed Safely, Responded well, Discharged Condition Good, Rehab Referral Accepted Patient has Accepted a Rehab Referral to: [facility] - Medication Discharge Medications: Ambulatory Orders Methadone [Dolophine -] 70 mg PO DAILY 08/01/19 Gabapentin [Neurontin -] 100 mg PO BID #60 capsule 09/22/19 Quetiapine Fumarate [Seroquel -] 50 mg PO HS #30 tablet 09/22/19 Sertraline HCl [Zoloft -] 100 mg PO DAILY #60 tablet 09/22/19 Estradiol 4 mg PO BID #30 tablet 09/23/19 Spironolactone [Aldactone] 100 mg PO DAILY #14 tablet 09/23/19 - Diagnosis (1) Alcohol dependence with withdrawal, uncomplicated Status: Acute (2) Nicotine dependence Status: Acute Qualifiers: Nicotine product type: cigarettes Substance use status: in withdrawal Qualified Code(s): F17.213 - Nicotine dependence, cigarettes, with withdrawal (3) Opioid dependence on agonist therapy Status: Chronic (4) Substance induced mood disorder Status: Suspected - AMA Did Patient Leave Against Medical Advice: No CIWA Score - CIWA Score Nausea/Vomitin-No Nausea/No Vomiting Muscle Tremors: 1-None Visible, but [place] Anxiety: 1-Mildly Anxious Agitation: 0-Normal Activity Paroxysmal Sweats: No Perspiration Orientation: 0-Oriented Tacttile Disturbances: 0-None Auditory Disturbances: 0-None Visual Disturbances: 0-None Headache: 0-None Present CIWA-Ar Total Score: 2
== END 2019-10-29 10:22 | disposition home or self-care (01) | DRG 773 ==
LOC: YASAS 18:14 → Y3N 21:44
PROVIDERS: ADMIT Allergy & Immunology; ATTEND Allergy & Immunology
PROC: HZ2ZZZZ Detoxification Services for Substance Abuse Treatment (ICD-10-PCS; principal; 2019-10-25)
DX: F10.230 Alcohol dependence with withdrawal, uncomplicated (principal); F13.230 Sedative, hypnotic or anxiolytic dependence with withdrawal, uncomplicated; F11.20 Opioid dependence, uncomplicated; F14.20 Cocaine dependence, uncomplicated; F17.213 Nicotine dependence, cigarettes, with withdrawal; F32.9 Major depressive disorder, single episode, unspecified; F19.24 Other psychoactive substance dependence with psychoactive substance-induced mood disorder; F64.0 Transsexualism; F43.10 Post-traumatic stress disorder, unspecified; G47.00 Insomnia, unspecified; J45.909 Unspecified asthma, uncomplicated; J34.89 Other specified disorders of nose and nasal sinuses; Z91.410 Personal history of adult physical and sexual abuse; Z62.810 Personal history of physical and sexual abuse in childhood; Z91.5 Personal history of self-harm
CPT/HCPCS: 36415; 80053; 85027; 86593; 93005; 93010; Q0162

== ENCOUNTER 2019-11-23 12:37 | Inpatient (IN) | payer OTHER ==
[2019-11-23 14:54] VITALS: BMI 34.9
--- NOTE | 2019-11-23 16:20 | HP ---
CIWA Score Nausea/Vomitin-Mild Nausea/No Vomiting Muscle Tremors: 3 Anxiety: 2 Agitation: 3 Paroxysmal Sweats: 1-Minimal Palms Moist Orientation: 0-Oriented Tacttile Disturbances: 1-Very Mild Itch/Numbness Auditory Disturbances: 0-None Visual Disturbances: 0-None Headache: 2-Mild CIWA-Ar Total Score: 13 - Admission Criteria OASAS Guidelines: Admission for Medically Managed Detox: Requires at least one of the followin. CIWA greater than 12 2. Seizures within the past 24 hours 3. Delirium tremens within the past 24 hours 4. Hallucinations within the past 24 hours 5. Acute intervention needed for co occurring medical disorder 6. Acute intervention needed for co occurring psychiatric disorder 7. Severe withdrawal that cannot be handled at a lower level of care (continued vomiting, continued diarrhea, abnormal vital signs) requiring intravenous medication and/or fluids 8. Admitting History and Physical - Admission Chief Complaint: i need help to stop drinking alcohol,and heroin abused,and to get my life better History of Present Illness: this 44 years old male,with alcohol dependence,heroin abused,also crack dependence, seeking help,to stop drinking alcohol,heroin abused, denied seizure syncope last detox [facility] 10/25/2019 to 10/29/2019 nicotine dependence longest sobriety 11 years live with mother unemployed plan for [employer] residential mmtp 90 mgs/day last medicated today,has a bottle to take home for tomorrow History Source: Patient Limitations to Obtaining History: No Limitations - Past Medical History 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 Psych: Yes: Anxiety, Depression, Other (insomnia) - Smoking History Smoking history: Current every day smoker Have you smoked in the past 12 months: Yes Aproximately how many cigarettes per day: 5 - Alcohol/Substance Use Hx Alcohol Use: Yes History of Substance Use: reports: Cocaine, Heroin - Social History Usual Living Arrangement: Yes: With Parent ADL: Support Services Occupation: unemployed Admission ROS S - HPI Chief Complaint: i am here,need help to stop drnking alcohol,crack,heroin abused,mmtp Allergies/Adverse Reactions: Allergies Allergy/AdvReac Type Severity Reaction Status Date / Time No Known Allergies Allergy Verified 11/23/19 14:36 History of Present Illness: this 44 years old with alcohol,crack dependence,heroin abused,mmtp 90 mgs/day, last medicated today, has take home bottle tomorrow Exam Limitations: No Limitations - Ebola screening Have you traveled outside of the country in the last 21 days: No Have you had contact with anyone from an Ebola affected area: No Have you been sick,other than usual withdrawal symptoms: No Do you have a fever: No - Review of Systems Constitutional: Loss of Appetite, Malaise, Night Sweats, Changes in sleep, Weakness EENT: reports: Tearing, Nose Congestion Respiratory: reports: No Symptoms reported Cardiac: reports: No Symptoms Reported GI: reports: Nausea, Poor Appetite, Vomiting, Abdominal cramping : reports: No Symptoms Reported Musculoskeletal: reports: Back Pain, Muscle Pain Integumentary: reports: Dryness Neuro: reports: Tremors Endocrine: reports: No Symptoms Reported Hematology: reports: No Symptoms Reported Psychiatric: reports: Judgement Intact, Mood/Affect Appropiate, Orientated x3 ( insomnia), Anxious, Depressed Patient History - Patient Medical History Hx Anemia: Yes (no med) Hx Asthma: No Hx Chronic Obstructive Pulmonary Disease (COPD): No Hx Cancer: No Hx Cardiac Disorders: No Hx Congestive Heart Failure: No Hx Hypertension: No Hx Hypercholesterolemia: No Hx Pacemaker: No HX Cerebrovascular Accident: No Hx Seizures: No Hx Dementia: No Hx Diabetes: No Hx Gastrointestinal Disorders: No Hx Liver Disease: No Hx Genitourinary Disorders: No Hx Sexually Transmitted Disorders: No Hx Renal Disease (ESRD): No Hx Thyroid Disease: No Hx Human Immunodeficiency Virus (HIV): No (last 2019 negative) Hx Hepatitis C: No Hx Depression: Yes (anxiety,insomnia) Hx Suicide Attempt: No Hx Bipolar Disorder: No Hx Schizophrenia: No Other Medical History: no suicidal,no homicidal - Patient Surgical History Past Surgical History: No Hx Neurologic Surgery: No Hx Cataract Extraction: No Hx Cardiac Surgery: No Hx Lung Surgery: No Hx Breast Surgery: No Hx Breast Biopsy: No Hx Abdominal Surgery: No Hx Appendectomy: No Hx Cholecystectomy: No Hx Genitourinary Surgery: No Hx Section: No Hx Orthopedic Surgery: No Hx Hysterectomy: No Anesthesia Reaction: No - PPD History Previous Implant?: Yes Documented Results: Negative w/proof Implanted On Prior R Admission?: No Date: 08/03/19 Results: 4mm PPD to be Administered?: No - Smoking Cessation Smoking history: Current every day smoker Have you smoked in the past 12 months: Yes Aproximately how many cigarettes per day: 5 Hx Chewing Tobacco Use: No Initiated information on smoking cessation: Yes 'Breaking Loose' booklet given: 11/23/19 - Substance & Tx. History Hx Alcohol Use: Yes Hx Substance Use: Yes Substance Use Type: Alcohol, Cocaine, Heroin Hx Substance Use Treatment: Yes ([facility] 10/25/2019 to 10/29/2019) - Substances abused Alcohol Substance route: Oral Frequency: Daily Amount used: 1/ VODKA/RUM Age of first use: 10 Date of last use: 11/23/19 Heroin Substance route: Inhalation Frequency: Daily Amount used: 3-5 BAGS Age of first use: 20 Date of last use: 11/22/19 Crack Substance route: Smoking Frequency: Daily Amount used: $30-$100 Age of first use: 20 Date of last use: 11/22/19 Admission Physical Exam [facility] - Vital Signs Vital Signs: Vital Signs - 24 hr 11/23/19 14:47 Temperature 97.7 F Pulse Rate 87 Respiratory 20 Rate Blood Pressure 117/56 L - Physical General Appearance: Yes: Moderate Distress, Tremorous, Irritable, Sweating, Anxious HEENTM: Yes: Normal ENT Inspection, SUDHA, Pharynx Normal Respiratory: Yes: Lungs Clear, Normal Breath Sounds, No Respiratory Distress Neck: Yes: Within Normal Limits, Supple, Trachea in good position Breast: Yes: Breast Exam Deferred Cardiology: Yes: Within Normal Limits, Regular Rhythm, Regular Rate, S1, S2 Abdominal: Yes: Within Normal Limits, Normal Bowel Sounds, Non Tender, Soft Genitourinary: Yes: Within Normal Limits Back: Yes: Muscle Spasm Musculoskeletal: Yes: Back pain Extremities: Yes: Tremors 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 NML intact, Fully Oriented, Alert, Motor Strength 5/5 Integumentary: Yes: Dry - Diagnostic (1) Alcohol dependence with withdrawal, uncomplicated Current Visit: No Status: Acute (2) Nicotine dependence Current Visit: No Status: Acute Qualifiers: Nicotine product type: cigarettes Substance use status: in withdrawal Qualified Code(s): F17.213 - Nicotine dependence, cigarettes, with withdrawal (3) Insomnia Current Visit: No Status: Chronic (4) Opioid dependence on agonist therapy Current Visit: No Status: Chronic (5) PTSD (post-traumatic stress disorder) Current Visit: No Status: Chronic Cleared for Admission [facility] - Detox or Rehab [facility] Level of Care: Medically Managed Detox Regimen/Protocol: Librium Breathalyzer - Breathalyzer Breathalyzer: 0 Urine Drug Screen - Test Device Lot number: [id number] Expiration date: 08/19/21 - Control Is test valid?: Yes - Results Drug screen NEGATIVE: No Urine drug screen results: JO-ANN-Cocaine, FEN-Fentanyl, MOP-Opiates, MTD-Methadone Inpatient Rehab Admission - Rehab Decision to Admit Inpatient rehab admission?: No
[2019-11-23] MEDS ORDERED: MAGNESIUM CITRATE 300 ML BOTTLE PO PRN (16:33)
[2019-11-23] MEDS ORDERED: hydrOXYzine PAMOATE 25 MG CAPSULE (FP) PO PRN (16:33)
[2019-11-23] MEDS ORDERED: BISMUTH SUBSALICYLATE 524 MG/30 ML UD PO PRN (16:33)
[2019-11-23] MEDS ORDERED: ACETAMINOPHEN 325 MG TABLET (FP) PO PRN ×2 (16:33)
[2019-11-23] MEDS ORDERED: NICOTINE POLACRILEX 2 MG GUM BUC PRN (16:33)
[2019-11-23] MEDS ORDERED: METHOCARBAMOL 500 MG TABLET PO PRN (16:33)
[2019-11-23] MEDS ORDERED: MAGNESIUM HYDROX 2400MG/30ML ORAL SUSPENSION 30 ML CUP PO PRN (16:33)
[2019-11-23] MEDS ORDERED: MAG HYDROX/AL HYDROX/SIMETH 30 ML UNIT-DOSE CUP PO PRN (16:33)
[2019-11-23] MEDS ORDERED: IBUPROFEN 400 MG TABLET (FP) PO PRN (16:33)
[2019-11-23] MEDS ORDERED: MELATONIN 5 MG TABLETS PO PRN (16:33)
[2019-11-23] MEDS ORDERED: chlordiazePOXIDE HCL 25 MG CAPSULE PO PRN (16:33)
[2019-11-23] MEDS: chlordiazePOXIDE HCL 25 MG CAPSULE PO SCH ×2 (17:38→22:32)
[2019-11-23] MEDS: SPIRONOLACTONE 25 MG TABLET (FP) PO SCH (22:31)
[2019-11-23] MEDS: ESTRADIOL 2 MG TABLET (NON-FORMULARY) PO SCH (22:32)
[2019-11-23] MEDS: THIAMINE HCL 100 MG TABLET (FP) PO SCH (22:32)
[2019-11-24] MEDS ORDERED: METHADONE HCL 10 MG TABLET ONE (05:10)
[2019-11-24] MEDS ORDERED: METHADONE HCL 40 MG DISPERSABLE TABLET ONE (05:11)
[2019-11-24] MEDS ORDERED: METHADONE HCL 10 MG TABLET PO ONE (06:00)
[2019-11-24] MEDS ORDERED: METHADONE 80 MG, METHADONE 10 MG PO ONE (06:00)
[2019-11-24] MEDS: chlordiazePOXIDE HCL 25 MG CAPSULE PO SCH ×4 (06:32→22:32)
[2019-11-24 09:25] LABS: HEMATOCRIT 37.1 % (35.4-49); HEMOGLOBIN 12.8 GM/dL (11.7-16.9); MCH 30.9 pg (25.7-33.7); MCHC 34.3 g/dl (32.0-35.9); PLATELET COUNT 283 K/MM3 (134-434); RBC 4.13 M/mm3 (4.00-5.60); RDW 13.1 % (11.9-15.9); WHITE BLOOD COUNT 8.5 K/mm3 (4.0-10.0)
[2019-11-24 09:35] LABS: ALBUMIN 2.9 g/dl (3.4-5.0); BILIRUBIN,TOTAL 0.5 mg/dL (0.2-1); BLOOD UREA NITROGEN 14.9 mg/dL (7-18); CALCIUM 8.3 mg/dL (8.5-10.1); CREATININE 1.4 mg/dL (0.55-1.3); TOT PROT 6.6 g/dl (6.4-8.2)
[2019-11-24] MEDS: PRENATAL VITAMINS W/ FOLIC ACID TABLET (FP) PO SCH (11:00)
[2019-11-24] MEDS: NICOTINE 14 MG/24 HOURS TOPICAL PATCH TD SCH (11:00)
[2019-11-24] MEDS: SPIRONOLACTONE 25 MG TABLET (FP) PO SCH ×2 (11:08→22:32)
[2019-11-24] MEDS: ESTRADIOL 2 MG TABLET (NON-FORMULARY) PO SCH ×2 (11:09→22:32)
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
--- NOTE | 2019-11-24 15:45 | PN ---
[facility] CIWA - CIWA Score Nausea/Vomitin-Mild Nausea/No Vomiting Muscle Tremors: 2 Anxiety: 3 Agitation: 2 Paroxysmal Sweats: 3 Orientation: 0-Oriented Tacttile Disturbances: 0-None Auditory Disturbances: 0-None Visual Disturbances: 0-None Headache: 0-None Present CIWA-Ar Total Score: 11 S Progress Note (SOAP) Subjective: Feels ok Objective: 11/24/19 15:42 Last Vital Signs Temp Pulse Resp BP Pulse Ox 98.1 F 61 18 106/60 11/24/19 12:51 11/24/19 12:51 11/24/19 12:51 11/24/19 12:51 Laboratory Tests 11/24/19 11/24/19 11/24/19 07:30 07:30 07:30 WBC 8.5 RBC 4.13 Hgb 12.8 Hct 37.1 MCV 90.0 MCH 30.9 MCHC 34.3 RDW 13.1 Plt Count 283 MPV 8.0 Sodium 139 Potassium 4.0 Chloride 106 Carbon Dioxide 29 Anion Gap 4 L BUN 14.9 Creatinine 1.4 H Est GFR (CKD-EPI)AfAm 69.34 Est GFR (CKD-EPI)NonAf 59.83 Random Glucose 106 Calcium 8.3 L Total Bilirubin 0.5 AST 15 ALT 16 Alkaline Phosphatase 87 Total Protein 6.6 Albumin 2.9 L RPR Titer Nonreactive Labs reviewed: DESTINEY and hypoalbuminemia noted Assessment: 11/24/19 15:44 Withdrawal sxs Noted with DESTINEY and hypoalbuminemia Plan: Continue detox DESTINEY: encouraged PO water intake, repeat bmp Hypoalbuminemia: encouraged diet
[2019-11-24] MEDS: GABAPENTIN 100 MG CAPSULE PO SCH (22:32)
[2019-11-24] MEDS: QUEtiapine FUMARATE 50 MG TABLET PO SCH (22:32)
[2019-11-24] MEDS: THIAMINE HCL 100 MG TABLET (FP) PO SCH (22:33)
[2019-11-24] MEDS: SUVOREXANT 10 MG TABLET PO PRN (22:37)
[2019-11-25] MEDS: chlordiazePOXIDE HCL 25 MG CAPSULE PO SCH ×4 (06:14→22:14)
[2019-11-25] MEDS ORDERED: METHADONE HCL 10 MG TABLET PO ONE (09:00)
[2019-11-25] MEDS ORDERED: METHADONE 80 MG, METHADONE 10 MG PO ONE (09:25)
[2019-11-25] MEDS ORDERED: METHADONE HCL 10 MG TABLET ONE (09:33)
[2019-11-25] MEDS ORDERED: METHADONE HCL 40 MG DISPERSABLE TABLET ONE (09:34)
[2019-11-25] MEDS ORDERED: TRIMETHOBENZAMIDE HCL 200MG/2ML INJ IM PRN (09:42)
[2019-11-25] MEDS: GABAPENTIN 100 MG CAPSULE PO SCH ×2 (10:38→22:14)
[2019-11-25] MEDS: SERTRALINE HCL 50 MG TABLET (FP) PO SCH (10:38)
[2019-11-25] MEDS: SPIRONOLACTONE 25 MG TABLET (FP) PO SCH ×2 (10:38→22:15)
[2019-11-25] MEDS: NICOTINE 14 MG/24 HOURS TOPICAL PATCH TD SCH (10:38)
[2019-11-25] MEDS: PRENATAL VITAMINS W/ FOLIC ACID TABLET (FP) PO SCH (10:39)
--- NOTE | 2019-11-25 11:51 | PN ---
S CIWA - CIWA Score Nausea/Vomitin Muscle Tremors: 3 Anxiety: 3 Agitation: 3 Paroxysmal Sweats: 3 Orientation: 0-Oriented Tacttile Disturbances: 0-None Auditory Disturbances: 0-None Visual Disturbances: 0-None Headache: 0-None Present CIWA-Ar Total Score: 14 BHS Progress Note (SOAP) Subjective: shakes sweats body aches interrupted sleep nausea/vomiting Objective: 11/25/19 11:50 Vital Signs Temperature 96.8 F L 11/25/19 09:41 Pulse Rate 85 11/25/19 09:41 Respiratory Rate 20 11/25/19 09:41 Blood Pressure 108/67 11/25/19 09:41 O2 Sat by Pulse Oximetry (%) Laboratory Tests 11/24/19 11/24/19 11/24/19 07:30 07:30 07:30 WBC 8.5 RBC 4.13 Hgb 12.8 Hct 37.1 MCV 90.0 MCH 30.9 MCHC 34.3 RDW 13.1 Plt Count 283 MPV 8.0 Sodium 139 Potassium 4.0 Chloride 106 Carbon Dioxide 29 Anion Gap 4 L BUN 14.9 Creatinine 1.4 H Est GFR (CKD-EPI)AfAm 69.34 Est GFR (CKD-EPI)NonAf 59.83 Random Glucose 106 Calcium 8.3 L Total Bilirubin 0.5 AST 15 ALT 16 Alkaline Phosphatase 87 Total Protein 6.6 Albumin 2.9 L RPR Titer Nonreactive aaox3 lying in bed nausea/vomiting noted; tigan IM ordered Assessment: 11/25/19 11:50 withdrawals Plan: continue detox tigan IM ordered
[2019-11-25] MEDS: ESTRADIOL 2 MG TABLET (NON-FORMULARY) PO SCH ×3 (11:59→22:15)
[2019-11-25] MEDS: guaiFENesin 200 MG/10 ML 10 ML UNIT-DOSE CUPS PO PRN (21:08)
[2019-11-25] MEDS: QUEtiapine FUMARATE 50 MG TABLET PO SCH (22:14)
[2019-11-25] MEDS: THIAMINE HCL 100 MG TABLET (FP) PO SCH (22:15)
[2019-11-26] MEDS ORDERED: chlordiazePOXIDE HCL 10 MG CAPSULE PO PRN
[2019-11-26] MEDS ORDERED: METHADONE HCL 10 MG TABLET ONE (04:16)
[2019-11-26] MEDS ORDERED: METHADONE HCL 40 MG DISPERSABLE TABLET ONE (04:17)
[2019-11-26] MEDS: guaiFENesin 200 MG/10 ML 10 ML UNIT-DOSE CUPS PO PRN ×2 (05:04→21:56)
[2019-11-26] MEDS ORDERED: METHADONE HCL 40 MG DISPERSABLE TABLET PO SCH (06:00)
[2019-11-26] MEDS: chlordiazePOXIDE HCL 10 MG CAPSULE PO SCH ×4 (07:45→22:08)
[2019-11-26] MEDS: METHADONE 80 MG, METHADONE 10 MG PO SCH (07:45)
[2019-11-26] MEDS: PRENATAL VITAMINS W/ FOLIC ACID TABLET (FP) PO SCH (10:59)
[2019-11-26] MEDS: SERTRALINE HCL 50 MG TABLET (FP) PO SCH (10:59)
[2019-11-26] MEDS: SPIRONOLACTONE 25 MG TABLET (FP) PO SCH ×2 (11:00→21:53)
[2019-11-26] MEDS: NICOTINE 14 MG/24 HOURS TOPICAL PATCH TD SCH (11:00)
[2019-11-26] MEDS: ESTRADIOL 2 MG TABLET (NON-FORMULARY) PO SCH ×2 (11:00→21:52)
[2019-11-26] MEDS: GABAPENTIN 100 MG CAPSULE PO SCH ×2 (11:13→21:53)
--- NOTE | 2019-11-26 13:26 | PN ---
S CIWA - CIWA Score Nausea/Vomitin-No Nausea/No Vomiting Muscle Tremors: 3 Anxiety: 2 Agitation: 2 Paroxysmal Sweats: 2 Orientation: 0-Oriented Tacttile Disturbances: 0-None Auditory Disturbances: 0-None Visual Disturbances: 0-None Headache: 0-None Present CIWA-Ar Total Score: 9 S Progress Note (SOAP) Subjective: sweats irritable interrupted sleep Objective: 11/26/19 13:25 Vital Signs Temperature 98.9 F 11/26/19 09:08 Pulse Rate 90 11/26/19 09:08 Respiratory Rate 17 11/26/19 09:08 Blood Pressure 95/62 11/26/19 09:08 O2 Sat by Pulse Oximetry (%) Laboratory Tests 11/24/19 11/24/19 11/24/19 07:30 07:30 07:30 WBC 8.5 RBC 4.13 Hgb 12.8 Hct 37.1 MCV 90.0 MCH 30.9 MCHC 34.3 RDW 13.1 Plt Count 283 MPV 8.0 Sodium 139 Potassium 4.0 Chloride 106 Carbon Dioxide 29 Anion Gap 4 L BUN 14.9 Creatinine 1.4 H Est GFR (CKD-EPI)AfAm 69.34 Est GFR (CKD-EPI)NonAf 59.83 Random Glucose 106 Calcium 8.3 L Total Bilirubin 0.5 AST 15 ALT 16 Alkaline Phosphatase 87 Total Protein 6.6 Albumin 2.9 L RPR Titer Nonreactive aaox3 ambulating no acute distress Assessment: 11/26/19 13:26 withdrawals Plan: continue detox
[2019-11-26] MEDS ORDERED: ONDANSETRON *ODT* 4 MG TABLET SL PRN (15:01)
[2019-11-26] MEDS: SUVOREXANT 10 MG TABLET PO PRN (21:52)
[2019-11-26] MEDS: THIAMINE HCL 100 MG TABLET (FP) PO SCH (21:53)
[2019-11-26] MEDS: QUEtiapine FUMARATE 50 MG TABLET PO SCH (21:53)
[2019-11-26 23:46] LABS: URINE APPEARANCE CLEAR; URINE BILIRUBIN NEGATIVE (NEGATIVE); URINE COLOR YELLOW; URINE GLUCOSE (UA) NEGATIVE (NEGATIVE); URINE KETONE TRACE (NEGATIVE); URINE LEUK ESTERASE NEGATIVE (NEGATIVE); URINE NITRITE NEGATIVE (NEGATIVE); URINE PROTEIN NEGATIVE (NEGATIVE); URINE UROBILINOGEN 0.2 mg/dL (0.2-1.0)
[2019-11-27] MEDS ORDERED: METHADONE HCL 10 MG TABLET ONE (04:20)
[2019-11-27] MEDS ORDERED: METHADONE HCL 40 MG DISPERSABLE TABLET ONE (04:20)
[2019-11-27] MEDS: METHADONE 80 MG, METHADONE 10 MG PO SCH (06:20)
[2019-11-27] MEDS: chlordiazePOXIDE HCL 10 MG CAPSULE PO SCH ×2 (06:21→17:37)
[2019-11-27] MEDS: MENTHOL/PHENOL 1 EACH UD MM PRN ×2 (08:06→22:39)
[2019-11-27] MEDS: SERTRALINE HCL 50 MG TABLET (FP) PO SCH (10:29)
[2019-11-27] MEDS: SPIRONOLACTONE 25 MG TABLET (FP) PO SCH ×2 (10:29→22:36)
[2019-11-27] MEDS: GABAPENTIN 100 MG CAPSULE PO SCH ×2 (10:30→22:36)
[2019-11-27] MEDS: PRENATAL VITAMINS W/ FOLIC ACID TABLET (FP) PO SCH (10:31)
[2019-11-27] MEDS: ESTRADIOL 2 MG TABLET (NON-FORMULARY) PO SCH ×2 (10:31→22:36)
[2019-11-27] MEDS: NICOTINE 14 MG/24 HOURS TOPICAL PATCH TD SCH (10:49)
--- NOTE | 2019-11-27 11:39 | PN ---
[facility] CIWA - CIWA Score Nausea/Vomitin-No Nausea/No Vomiting Muscle Tremors: 2 Anxiety: 1-Mildly Anxious Agitation: 2 Paroxysmal Sweats: No Perspiration Orientation: 0-Oriented Tacttile Disturbances: 0-None Auditory Disturbances: 0-None Visual Disturbances: 0-None Headache: 0-None Present CIWA-Ar Total Score: 5 BHS Progress Note (SOAP) Subjective: cough Objective: 11/27/19 11:40 Vital Signs Temperature 98.4 F 11/27/19 08:57 Pulse Rate 98 H 11/27/19 08:57 Respiratory Rate 19 11/27/19 08:57 Blood Pressure 111/65 11/27/19 08:57 O2 Sat by Pulse Oximetry (%) aaox3 ambulating no acute distress Assessment: 11/27/19 11:41 withdrawal sx lungs assessed; rhonchi noted Plan: continue detox duoneb x one mucinex ordered d/c in am
[2019-11-27] MEDS ORDERED: ALBUTEROL SO4 2.5/IPRATROPIUM 0.5 INH SOL 3 ML VIAL.NEB. NEB ONE (12:00)
[2019-11-27] MEDS: guaiFENesin 600 MG TABLET.ER (FP) PO SCH ×2 (12:47→22:36)
[2019-11-27] MEDS: QUEtiapine FUMARATE 50 MG TABLET PO SCH (22:36)
[2019-11-27] MEDS: THIAMINE HCL 100 MG TABLET (FP) PO SCH (22:37)
[2019-11-28] MEDS ORDERED: chlordiazePOXIDE HCL 10 MG CAPSULE PO ONE (05:00)
[2019-11-28] MEDS ORDERED: METHADONE HCL 10 MG TABLET ONE (05:04)
[2019-11-28] MEDS ORDERED: METHADONE HCL 40 MG DISPERSABLE TABLET ONE (05:05)
[2019-11-28] MEDS: METHADONE 80 MG, METHADONE 10 MG PO SCH (07:49)
--- NOTE | 2019-11-28 09:33 | DS ---
[facility] Detox Discharge Summary Admission Date: 11/23/19 Discharge Date: 11/28/19 - History Present History: Alcohol Dependence, Cocaine Dependence, Sedative Dependence - Physical Exam Results Vital Signs: Vital Signs Temperature 97.7 F 11/28/19 05:20 Pulse Rate 81 11/28/19 05:20 Respiratory Rate 18 11/28/19 05:20 Blood Pressure 100/62 11/28/19 05:20 O2 Sat by Pulse Oximetry (%) Pertinent Admission Physical Exam Findings: Vital Signs Temperature 97.7 F 11/28/19 05:20 Pulse Rate 81 11/28/19 05:20 Respiratory Rate 18 11/28/19 05:20 Blood Pressure 100/62 11/28/19 05:20 O2 Sat by Pulse Oximetry (%) Laboratory Tests 11/24/19 11/24/19 11/24/19 07:30 07:30 07:30 WBC 8.5 RBC 4.13 Hgb 12.8 Hct 37.1 MCV 90.0 MCH 30.9 MCHC 34.3 RDW 13.1 Plt Count 283 MPV 8.0 Sodium 139 Potassium 4.0 Chloride 106 Carbon Dioxide 29 Anion Gap 4 L BUN 14.9 Creatinine 1.4 H Est GFR (CKD-EPI)AfAm 69.34 Est GFR (CKD-EPI)NonAf 59.83 Random Glucose 106 Calcium 8.3 L Total Bilirubin 0.5 AST 15 ALT 16 Alkaline Phosphatase 87 Total Protein 6.6 Albumin 2.9 L Urine Color Urine Appearance Urine pH Ur Specific [place] Urine Protein Urine Glucose (UA) Urine Ketones Urine Blood Urine Nitrite Urine Bilirubin Urine Urobilinogen Ur Leukocyte Esterase RPR Titer Nonreactive 11/26/19 20:00 WBC RBC Hgb Hct MCV MCH MCHC RDW Plt Count MPV Sodium Potassium Chloride Carbon Dioxide Anion Gap BUN Creatinine Est GFR (CKD-EPI)AfAm Est GFR (CKD-EPI)NonAf Random Glucose Calcium Total Bilirubin AST ALT Alkaline Phosphatase Total Protein Albumin Urine Color Yellow Urine Appearance Clear Urine pH 5.0 Ur Specific [place] 1.028 Urine Protein Negative Urine Glucose (UA) Negative Urine Ketones Trace H Urine Blood Negative Urine Nitrite Negative Urine Bilirubin Negative Urine Urobilinogen 0.2 Ur Leukocyte Esterase Negative RPR Titer aaox3 ambulating no acute distress +bs - Treatment Hospital Course: Detox Protocol Followed, Detoxed Safely, Responded well, Disc harged Condition Good, Rehab Referral Accepted - Medication Discharge Medications: Ambulatory Orders Methadone [Dolophine -] 90 mg PO DAILY 08/01/19 Gabapentin [Neurontin -] 100 mg PO BID #60 capsule 09/22/19 Quetiapine Fumarate [Seroquel -] 50 mg PO HS #30 tablet 09/22/19 Sertraline HCl [Zoloft -] 100 mg PO DAILY #60 tablet 09/22/19 Estradiol 4 mg PO BID #30 tablet 09/23/19 Spironolactone [Aldactone] 100 mg PO BID 11/23/19 - Diagnosis (1) Alcohol dependence with withdrawal, uncomplicated Current Visit: Yes Status: Chronic (2) Nicotine dependence Current Visit: Yes Status: Chronic Qualifiers: Nicotine product type: cigarettes Substance use status: uncomplicated Qualified Code(s): F17.210 - Nicotine dependence, cigarettes, uncomplicated (3) Substance-induced sleep disorder Current Visit: Yes Status: Acute (4) Opioid dependence on agonist therapy Current Visit: Yes Status: Chronic (5) PTSD (post-traumatic stress disorder) Current Visit: Yes Status: Chronic (6) Moderate alcohol dependence in early remission in controlled environment Current Visit: No Status: Acute (7) Moderate cocaine dependence in early remission in controlled environment Current Visit: No Status: Acute (8) Perforated nasal septum Current Visit: No Status: Acute (9) Substance-induced anxiety disorder Current Visit: No Status: Acute (10) Cocaine dependence, uncomplicated Current Visit: Yes Status: Chronic (11) MDD (major depressive disorder), recurrent episode, moderate Current Visit: No Status: Chronic (12) Axck-uw-hmpyyn transgender person Current Visit: No Status: Chronic (13) Sedative hypnotic or anxiolytic dependence Current Visit: No Status: Chronic (14) Substance induced mood disorder Current Visit: No Status: Suspected - AMA Did Patient Leave Against Medical Advice: No
[2019-11-28 11:41] VITALS: BP 126/70; PULSE 99; TEMP 98.7
== END 2019-11-28 10:10 | disposition home or self-care (01) | DRG 773 ==
LOC: YASAS 12:37 → Y6N 16:42
PROVIDERS: ADMIT Allergy & Immunology; ATTEND Allergy & Immunology
PROC: HZ2ZZZZ Detoxification Services for Substance Abuse Treatment (ICD-10-PCS; principal; 2019-11-23)
DX: F10.230 Alcohol dependence with withdrawal, uncomplicated (principal); F11.20 Opioid dependence, uncomplicated; F13.20 Sedative, hypnotic or anxiolytic dependence, uncomplicated; F14.20 Cocaine dependence, uncomplicated; F17.210 Nicotine dependence, cigarettes, uncomplicated; F19.280 Other psychoactive substance dependence with psychoactive substance-induced anxiety disorder; F19.282 Other psychoactive substance dependence with psychoactive substance-induced sleep disorder; F19.24 Other psychoactive substance dependence with psychoactive substance-induced mood disorder; F33.1 Major depressive disorder, recurrent, moderate; F43.10 Post-traumatic stress disorder, unspecified; F64.0 Transsexualism; G47.00 Insomnia, unspecified; J34.89 Other specified disorders of nose and nasal sinuses; E88.09 Other disorders of plasma-protein metabolism, not elsewhere classified; N17.9 Acute kidney failure, unspecified; Z91.410 Personal history of adult physical and sexual abuse
CPT/HCPCS: 36415; 80053; 81003; 85027; 86593; 94640; Q0162

== ENCOUNTER 2020-06-02 18:54 | Inpatient (IN) | payer OTHER ==
[2020-06-02 20:22] VITALS: BMI 33.3
--- NOTE | 2020-06-02 20:44 | HP ---
"CIWA Score - Admission Criteria OASAS Guidelines: Admission for Medically Managed Detox: Requires at least one of the followin. CIWA greater than 12 2. Seizures within the past 24 hours 3. Delirium tremens within the past 24 hours 4. Hallucinations within the past 24 hours 5. Acute intervention needed for co occurring medical disorder 6. Acute intervention needed for co occurring psychiatric disorder 7. Severe withdrawal that cannot be handled at a lower level of care (continued vomiting, continued diarrhea, abnormal vital signs) requiring intravenous medication and/or fluids 8. 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 Allergies/Adverse Reactions: Allergies Allergy/AdvReac Type Severity Reaction Status Date / Time No Known Allergies Allergy Verified 11/23/19 14:36 History of Present Illness: Confidential Drug Utilization Report Search Terms: Ricardo Porter, 1975Search Date: 06/02/2020 20:37:57 PM The Drug Utilization Report below displays all of the controlled substance prescriptions, if any, that your patient has filled in the last twelve months. T he information displayed on this report is compiled from pharmacy submissions to the Department, and accurately reflects the information as submitted by the pharmacies. This report was requested by: Maryanne Benson | Reference #: [id number] Patient History - Patient Medical History Hx Anemia: Yes (no med) Hx Asthma: No Hx Chronic Obstructive Pulmonary Disease (COPD): No Hx Cancer: No Hx Cardiac Disorders: No Hx Congestive Heart Failure: No Hx Hypertension: No Hx Hypercholesterolemia: No Hx Pacemaker: No HX Cerebrovascular Accident: No Hx Seizures: No Hx Dementia: No Hx Diabetes: No Hx Gastrointestinal Disorders: No Hx Liver Disease: No Hx Genitourinary Disorders: No Hx Sexually Transmitted Disorders: No Hx Renal Disease (ESRD): No Hx Thyroid Disease: No Hx Human Immunodeficiency Virus (HIV): No (last 2019 negative) Hx Hepatitis C: No Hx Depression: Yes (anxiety,insomnia) Hx Suicide Attempt: No Hx Bipolar Disorder: No Hx Schizophrenia: No - Patient Surgical History Past Surgical History: No Hx Neurologic Surgery: No Hx Cataract Extraction: No Hx Cardiac Surgery: No Hx Lung Surgery: No Hx Breast Surgery: No Hx Breast Biopsy: No Hx Abdominal Surgery: No Hx Appendectomy: No Hx Cholecystectomy: No Hx Genitourinary Surgery: No Hx Section: No Hx Orthopedic Surgery: No Hx Hysterectomy: No Anesthesia Reaction: No - PPD History Date: 08/03/19 Results: 4mm - Smoking Cessation Smoking history: Current every day smoker Have you smoked in the past 12 months: Yes Aproximately how many cigarettes per day: 5 Hx Chewing Tobacco Use: No Admission Physical Exam BHS - Vital Signs Vital Signs: Vital Signs - 24 hr 06/02/20 20:20 Temperature 97.3 F L Pulse Rate 64 Respiratory 20 Rate Blood Pressure 122/72 Breathalyzer - Breathalyzer Breathalyzer: 0 Urine Drug Screen - Test Device Lot number: [id number] Expiration date: 04/28/22 - Control Is test valid?: Yes - Results Drug screen NEGATIVE: No Urine drug screen results: JO-ANN-Cocaine, MOP-Opiates, MTD-Methadone"
[2020-06-02] MEDS ORDERED: hydrOXYzine PAMOATE 25 MG CAPSULE (FP) PO PRN (21:59)
[2020-06-02] MEDS ORDERED: NICOTINE POLACRILEX 2 MG GUM BUC PRN (21:59)
[2020-06-02] MEDS ORDERED: ACETAMINOPHEN 325 MG TABLET (FP) PO PRN ×2 (21:59)
[2020-06-02] MEDS ORDERED: IBUPROFEN 400 MG TABLET (FP) PO PRN (21:59)
[2020-06-02] MEDS ORDERED: BISMUTH SUBSALICYLATE 524 MG/30 ML UD PO PRN (21:59)
[2020-06-02] MEDS ORDERED: chlordiazePOXIDE HCL 25 MG CAPSULE PO PRN (21:59)
[2020-06-02] MEDS ORDERED: MAGNESIUM CITRATE 300 ML BOTTLE PO PRN (21:59)
[2020-06-02] MEDS ORDERED: MAGNESIUM HYDROX 2400MG/30ML ORAL SUSPENSION 30 ML CUP PO PRN (21:59)
[2020-06-02] MEDS ORDERED: MENTHOL/PHENOL 1 EACH UD MM PRN (21:59)
[2020-06-02] MEDS ORDERED: METHOCARBAMOL 500 MG TABLET PO PRN (21:59)
[2020-06-02] MEDS ORDERED: ONDANSETRON *ODT* 4 MG TABLET SL PRN (21:59)
[2020-06-02] MEDS ORDERED: MAG HYDROX/AL HYDROX/SIMETH 30 ML UNIT-DOSE CUP PO PRN (21:59)
--- NOTE | 2020-06-02 22:06 | BHS.RME ---
Substance Use & Tx History - Substance Use History Alcohol Substance amount: 1 fifth of Bacardi Frequency of use: Daily Substance route: Oral - Last Treatment Date of last treatment: 11/14/2019 Where was last treatment: Detox Physical/Psych/Mental Status - Behavior General Behavior: Increased activity (restlessness, agitation) Other Behaviors: Posturing - Cooperativeness Cooperativeness: Reluctant, Cooperative - Thinking Thought Processes: Tight, Logical Thought content: Future oriented - Physical Health Problems Is patient presently having any pain?: No Does patient presently have any injuries (include location): No Does patient currently have a fever: No Is patient : No CIWA Nausea/Vomitin-Mild Nausea/No Vomiting Muscle Tremors: 2 Anxiety: 4-Mod. Anxious/Guarded Agitation: 3 Paroxysmal Sweats: 2 Orientation: 0-Oriented Tacttile Disturbances: 0-None Auditory Disturbances: 0-None Visual Disturbances: 0-None Headache: 0-None Present CIWA-Ar Total Score: 12
--- NOTE | 2020-06-02 22:10 | HP ---
CIWA Score Nausea/Vomitin-Mild Nausea/No Vomiting Muscle Tremors: 2 Anxiety: 4-Mod. Anxious/Guarded Agitation: 3 Paroxysmal Sweats: 2 Orientation: 0-Oriented Tacttile Disturbances: 0-None Auditory Disturbances: 0-None Visual Disturbances: 0-None Headache: 0-None Present CIWA-Ar Total Score: 12 - Admission Criteria OASAS Guidelines: Admission for Medically Managed Detox: Requires at least one of the followin. CIWA greater than 12 2. Seizures within the past 24 hours 3. Delirium tremens within the past 24 hours 4. Hallucinations within the past 24 hours 5. Acute intervention needed for co occurring medical disorder 6. Acute intervention needed for co occurring psychiatric disorder 7. Severe withdrawal that cannot be handled at a lower level of care (continued vomiting, continued diarrhea, abnormal vital signs) requiring intravenous medication and/or fluids 8. Admitting History and Physical - Admission Chief Complaint: Abiola is a 44 y/o transgender woman presented to [facility] for alcohol detox. Patient on MMTP (90mg). 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 syncope), Syncope, Other Pulmonary: Yes: Asthma Psych: Yes: Anxiety, Depression, Other (insomnia) - Smoking History Smoking history: Current every day smoker Have you smoked in the past 12 months: Yes Aproximately how many cigarettes per day: 5 - Alcohol/Substance Use Hx Alcohol Use: Yes Number of Drinks Daily: 1 History of Substance Use: reports: Cocaine, Heroin - Social History Usual Living Arrangement: Yes: Alone (Transgender) Do you think of yourself as: Other ADL: Independent Occupation: unemployed History of Recent Travel: No Admission ROS [facility] - [facility] Chief Complaint: I need help to get clean. Allergies/Adverse Reactions: Allergies Allergy/AdvReac Type Severity Reaction Status Date / Time No Known Allergies Allergy Verified 06/02/20 22:31 History of Present Illness: Patient is a 44 y/o transgender woman with history of alcohol, Benzo and nicotine use disorder presented to [facility] for alcohol detox. Patient is on MMTP daily dosage of 90mg at [facility], reports she has been taking double dosage of her Methadone.( Takes the usual dosage at the clinic and also take the take home dosage for the next day.) Exam Limitations: No Limitations - Ebola screening Have you traveled outside of the country in the last 21 days: No Have you had contact with anyone from an Ebola affected area: No Have you been sick,other than usual withdrawal symptoms: No Do you have a fever: No - Review of Systems Constitutional: No Symptoms Reported EENT: reports: No Symptoms Reported Respiratory: reports: No Symptoms reported Cardiac: reports: No Symptoms Reported GI: reports: No Symptoms Reported : reports: No Symptoms Reported Musculoskeletal: reports: No Symptoms Reported Integumentary: reports: No Symptoms Reported Neuro: reports: No Symptoms reported Endocrine: reports: No Symptoms Reported Hematology: reports: No Symptoms Reported Psychiatric: reports: No Sypmtoms Reported, Orientated x3, Agitated, Anxious Other Systems: Reviewed and Negative Patient History - Patient Medical History Hx Anemia: No (no med) Hx Asthma: Yes (Uses albuterolo MDI when needed) Hx Chronic Obstructive Pulmonary Disease (COPD): No Hx Cancer: No Hx Cardiac Disorders: No Hx Congestive Heart Failure: No Hx Hypertension: No Hx Hypercholesterolemia: No Hx Pacemaker: No HX Cerebrovascular Accident: No Hx Seizures: No Hx Dementia: No Hx Diabetes: No Hx Gastrointestinal Disorders: No Hx Liver Disease: No Hx Genitourinary Disorders: No Hx Sexually Transmitted Disorders: No Hx Renal Disease (ESRD): No Hx Thyroid Disease: No Hx Human Immunodeficiency Virus (HIV): No (last 2019 negative) Hx Hepatitis C: No Hx Depression: Yes (anxiety,insomnia) Hx Suicide Attempt: No Hx Bipolar Disorder: No Hx Schizophrenia: No - Patient Surgical History Past Surgical History: No Hx Neurologic Surgery: No Hx Cataract Extraction: No Hx Cardiac Surgery: No Hx Lung Surgery: No Hx Breast Surgery: No Hx Breast Biopsy: No Hx Abdominal Surgery: No Hx Appendectomy: No Hx Cholecystectomy: No Hx Genitourinary Surgery: No Hx Section: No Hx Orthopedic Surgery: No Hx Hysterectomy: No Anesthesia Reaction: No - PPD History Date: 08/03/19 Results: 4mm - Smoking Cessation Smoking history: Current every day smoker Have you smoked in the past 12 months: Yes Aproximately how many cigarettes per day: 5 Hx Chewing Tobacco Use: No Initiated information on smoking cessation: Yes 'Breaking Loose' booklet given: 06/02/20 - Substances abused Alcohol Substance route: Oral Frequency: Daily Amount used: liquor- 3 pints Age of first use: 9 Date of last use: 06/02/20 Admission Physical Exam BHS - Vital Signs Vital Signs: Vital Signs - 24 hr 06/02/20 20:20 Temperature 97.3 F L Pulse Rate 64 Respiratory 20 Rate Blood Pressure 122/72 - Physical General Appearance: Yes: Nourished, Appropriately Dressed, Tremorous, Irritable, Anxious HEENTM: Yes: Within Normal Limits Respiratory: Yes: Within Normal Limits Neck: Yes: Within Normal Limits Breast: Yes: Breast Exam Deferred Cardiology: Yes: Within Normal Limits, Regular Rhythm, Regular Rate, S1, S2 Abdominal: Yes: Within Normal Limits, Normal Bowel Sounds Genitourinary: Yes: Within Normal Limits Back: Yes: Within Normal Limits, Normal Inspection Musculoskeletal: Yes: Within Normal Limits, full range of Motion, Gait Steady Extremities: Yes: Within Normal Limits, Normal Capillary Refill, Normal Inspection Neurological: Yes: Within Normal Limits, Fully Oriented, Alert Integumentary: Yes: Within Normal Limits Lymphatic: Yes: Within Normal Limits - Diagnostic (1) Alcohol dependence with withdrawal, uncomplicated Current Visit: No Status: Acute Cleared for Admission [facility] - Detox or Rehab [facility] Level of Care: Medically Managed Detox Regimen/Protocol: Librium (MMTP dosage 90mg) Screened but not Admitted - Documentation of Visit Screened but not Admitted: No Breathalyzer - Breathalyzer Breathalyzer: 0 Urine Drug Screen - Test Device Lot number: [id number] Expiration date: 04/28/22 - Control Is test valid?: Yes - Results Drug screen NEGATIVE: No Urine drug screen results: JO-ANN-Cocaine, MOP-Opiates, MTD-Methadone Inpatient Rehab Admission - Rehab Decision to Admit Inpatient rehab admission?: No
[2020-06-02] MEDS: chlordiazePOXIDE HCL 25 MG CAPSULE PO SCH (23:34)
[2020-06-02] MEDS: THIAMINE HCL 100 MG TABLET (FP) PO SCH (23:34)
[2020-06-02] MEDS: MELATONIN 5 MG TABLETS PO SCH (23:36)
[2020-06-03] MEDS: chlordiazePOXIDE HCL 25 MG CAPSULE PO SCH ×4 (05:44→22:06)
[2020-06-03] MEDS ORDERED: METHADONE HCL 10 MG TABLET PO ONE (09:04)
[2020-06-03] MEDS ORDERED: METHADONE HCL 10 MG TABLET ONE (09:54)
[2020-06-03] MEDS ORDERED: METHADONE HCL 40 MG DISPERSABLE TABLET ONE (09:55)
[2020-06-03] MEDS ORDERED: METHADONE 80 MG, METHADONE 10 MG PO ONE (10:00)
[2020-06-03] MEDS: NICOTINE 7 MG/24 HOURS TOPICAL PATCH TD SCH (10:02)
[2020-06-03] MEDS: PRENATAL VITAMINS W/ FOLIC ACID TABLET (FP) PO SCH (10:02)
[2020-06-03 10:29] LABS: HEMATOCRIT 40.1 % (35.4-49); HEMOGLOBIN 13.1 GM/dL (11.7-16.9); MCH 29.3 pg (25.7-33.7); MCHC 32.8 g/dl (32.0-35.9); MEAN CELL VOLUME 89.3 fl (80-96); MEAN PLT VOLUME 8.4 fl (7.5-11.1); PLATELET COUNT 246 K/MM3 (134-434); RBC 4.49 M/mm3 (4.00-5.60); RDW 13.2 % (11.9-15.9); WHITE BLOOD COUNT 9.2 K/mm3 (4.0-10.0)
[2020-06-03 10:41] LABS: ALBUMIN 3.3 g/dl (3.4-5.0); BILIRUBIN,TOTAL 0.6 mg/dL (0.2-1); CALCIUM 9.1 mg/dL (8.5-10.1); CREATININE 1.2 mg/dL (0.55-1.3); POTASSIUM 4.6 mmol/L (3.5-5.1)
--- NOTE | 2020-06-03 13:50 | PN ---
S CIWA - CIWA Score Nausea/Vomitin-No Nausea/No Vomiting Muscle Tremors: 2 Anxiety: 2 Agitation: 2 Paroxysmal Sweats: 1-Minimal Palms Moist Orientation: 0-Oriented Tacttile Disturbances: 0-None Auditory Disturbances: 0-None Visual Disturbances: 0-None Headache: 0-None Present CIWA-Ar Total Score: 7 BHS Progress Note (SOAP) Subjective: shakes sweats agitation body aches Objective: 06/03/20 13:48 Vital Signs Temperature 98.1 F 06/03/20 13:00 Pulse Rate 73 06/03/20 13:00 Respiratory Rate 16 06/03/20 13:00 Blood Pressure 122/73 06/03/20 13:00 O2 Sat by Pulse Oximetry (%) 98 06/03/20 13:00 Laboratory Tests 06/03/20 06/03/20 06/03/20 07:50 07:50 07:50 WBC 9.2 RBC 4.49 Hgb 13.1 Hct 40.1 MCV 89.3 MCH 29.3 MCHC 32.8 RDW 13.2 Plt Count 246 MPV 8.4 Sodium 139 Potassium 4.6 Chloride 104 Carbon Dioxide 30 Anion Gap 5 L BUN 20.0 H Creatinine 1.2 Est GFR (CKD-EPI)AfAm 83.54 Est GFR (CKD-EPI)NonAf 72.08 Random Glucose 93 Calcium 9.1 Total Bilirubin 0.6 AST 16 ALT 16 Alkaline Phosphatase 72 Total Protein 7.0 Albumin 3.3 L Syphilis Serology Non-reactive labs noted elevated BUN noted encourage fluids aaox3 ambulating no acute distress repeat BUN Assessment: 06/03/20 13:50 withdrawals Plan: continue detox increase fluids repeat BUN
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
[2020-06-03] MEDS: SPIRONOLACTONE 25 MG TABLET PO SCH (17:49)
[2020-06-03] MEDS ORDERED: ESTRADIOL 2 MG TABLET (NON-FORMULARY) PO SCH (22:00)
[2020-06-03] MEDS: GABAPENTIN 400 MG CAPSULE PO SCH (22:06)
[2020-06-03] MEDS: THIAMINE HCL 100 MG TABLET (FP) PO SCH (22:06)
[2020-06-03] MEDS: QUEtiapine FUMARATE 50 MG TABLET PO SCH (22:06)
[2020-06-03] MEDS: MELATONIN 5 MG TABLETS PO SCH (22:07)
[2020-06-03] MEDS: ESTRADIOL 2 MG TABLET (NON-FORMULARY) PO SCH (23:00)
[2020-06-04] MEDS ORDERED: METHADONE HCL 40 MG DISPERSABLE TABLET ONE (04:15)
[2020-06-04] MEDS ORDERED: METHADONE HCL 10 MG TABLET ONE (04:15)
[2020-06-04] MEDS ORDERED: METHADONE HCL 40 MG DISPERSABLE TABLET PO SCH (06:00)
[2020-06-04] MEDS: chlordiazePOXIDE HCL 25 MG CAPSULE PO SCH ×4 (06:11→22:36)
[2020-06-04] MEDS: METHADONE 80 MG, METHADONE 10 MG PO SCH (06:11)
[2020-06-04] MEDS: SPIRONOLACTONE 25 MG TABLET PO SCH ×2 (06:14→17:53)
[2020-06-04] MEDS: GABAPENTIN 400 MG CAPSULE PO SCH ×2 (10:29→22:36)
[2020-06-04] MEDS: ESTRADIOL 2 MG TABLET (NON-FORMULARY) PO SCH ×2 (10:29→22:39)
[2020-06-04] MEDS: SERTRALINE HCL 50 MG TABLET (FP) PO SCH (10:30)
[2020-06-04] MEDS: NICOTINE 7 MG/24 HOURS TOPICAL PATCH TD SCH (10:30)
[2020-06-04] MEDS: PRENATAL VITAMINS W/ FOLIC ACID TABLET (FP) PO SCH (10:30)
--- NOTE | 2020-06-04 14:01 | PN ---
S CIWA - CIWA Score Nausea/Vomitin-No Nausea/No Vomiting Muscle Tremors: 2 Anxiety: 2 Agitation: 2 Paroxysmal Sweats: No Perspiration Orientation: 0-Oriented Tacttile Disturbances: 0-None Auditory Disturbances: 0-None Visual Disturbances: 0-None Headache: 0-None Present CIWA-Ar Total Score: 6 BHS Progress Note (SOAP) Subjective: sweats agitation restless Objective: 06/04/20 14:01 Vital Signs Temperature 97.3 F L 06/04/20 08:50 Pulse Rate 78 06/04/20 08:50 Respiratory Rate 18 06/04/20 08:50 Blood Pressure 145/67 06/04/20 08:50 O2 Sat by Pulse Oximetry (%) 95 06/04/20 08:50 Laboratory Tests 06/02/20 06/03/20 06/03/20 10:50 07:50 07:50 WBC 9.2 RBC 4.49 Hgb 13.1 Hct 40.1 MCV 89.3 MCH 29.3 MCHC 32.8 RDW 13.2 Plt Count 246 MPV 8.4 Sodium Potassium Chloride Carbon Dioxide Anion Gap BUN Creatinine Est GFR (CKD-EPI)AfAm Est GFR (CKD-EPI)NonAf Random Glucose Calcium Total Bilirubin AST ALT Alkaline Phosphatase Total Protein Albumin Syphilis Serology Non-reactive COVID-19 (BIRD) Not detected 06/03/20 07:50 WBC RBC Hgb Hct MCV MCH MCHC RDW Plt Count MPV Sodium 139 Potassium 4.6 Chloride 104 Carbon Dioxide 30 Anion Gap 5 L BUN 20.0 H Creatinine 1.2 Est GFR (CKD-EPI)AfAm 83.54 Est GFR (CKD-EPI)NonAf 72.08 Random Glucose 93 Calcium 9.1 Total Bilirubin 0.6 AST 16 ALT 16 Alkaline Phosphatase 72 Total Protein 7.0 Albumin 3.3 L Syphilis Serology COVID-19 (BIRD) labs noted elevated BUN encourage fluids aaox3 ambulating no acute distress Assessment: 06/04/20 14:01 withdrawals Plan: continue detox
[2020-06-04] MEDS: MELATONIN 5 MG TABLETS PO SCH (22:36)
[2020-06-04] MEDS: THIAMINE HCL 100 MG TABLET (FP) PO SCH (22:36)
[2020-06-04] MEDS: QUEtiapine FUMARATE 50 MG TABLET PO SCH (22:36)
[2020-06-05] MEDS ORDERED: chlordiazePOXIDE HCL 10 MG CAPSULE PO PRN
[2020-06-05] MEDS ORDERED: METHADONE HCL 10 MG TABLET ONE (04:40)
[2020-06-05] MEDS ORDERED: METHADONE HCL 40 MG DISPERSABLE TABLET ONE (04:40)
[2020-06-05] MEDS: SPIRONOLACTONE 25 MG TABLET PO SCH ×2 (05:43→17:44)
[2020-06-05] MEDS: METHADONE 80 MG, METHADONE 10 MG PO SCH (05:43)
[2020-06-05] MEDS: chlordiazePOXIDE HCL 10 MG CAPSULE PO SCH ×4 (05:43→22:31)
[2020-06-05] MEDS: ESTRADIOL 2 MG TABLET (NON-FORMULARY) PO SCH ×2 (10:31→22:31)
[2020-06-05] MEDS: GABAPENTIN 400 MG CAPSULE PO SCH ×2 (10:31→22:31)
[2020-06-05] MEDS: NICOTINE 7 MG/24 HOURS TOPICAL PATCH TD SCH (10:32)
[2020-06-05] MEDS: SERTRALINE HCL 50 MG TABLET (FP) PO SCH (10:32)
[2020-06-05] MEDS: PRENATAL VITAMINS W/ FOLIC ACID TABLET (FP) PO SCH (10:32)
--- NOTE | 2020-06-05 10:47 | PN ---
S CIWA - CIWA Score Nausea/Vomitin-No Nausea/No Vomiting Muscle Tremors: 2 Anxiety: 1-Mildly Anxious Agitation: 2 Paroxysmal Sweats: No Perspiration Orientation: 0-Oriented Tacttile Disturbances: 0-None Auditory Disturbances: 0-None Visual Disturbances: 0-None Headache: 0-None Present CIWA-Ar Total Score: 5 BHS Progress Note (SOAP) Subjective: anxiety restless agitation Objective: 06/05/20 10:45 Vital Signs Temperature 97.1 F L 06/05/20 05:39 Pulse Rate 69 06/05/20 05:39 Respiratory Rate 16 06/05/20 05:39 Blood Pressure 103/69 06/05/20 05:39 O2 Sat by Pulse Oximetry (%) 100 06/05/20 05:39 Laboratory Tests 06/02/20 06/03/20 06/03/20 10:50 07:50 07:50 WBC 9.2 RBC 4.49 Hgb 13.1 Hct 40.1 MCV 89.3 MCH 29.3 MCHC 32.8 RDW 13.2 Plt Count 246 MPV 8.4 Sodium Potassium Chloride Carbon Dioxide Anion Gap BUN Creatinine Est GFR (CKD-EPI)AfAm Est GFR (CKD-EPI)NonAf Random Glucose Calcium Total Bilirubin AST ALT Alkaline Phosphatase Total Protein Albumin Syphilis Serology Non-reactive COVID-19 (BIRD) Not detected 06/03/20 07:50 WBC RBC Hgb Hct MCV MCH MCHC RDW Plt Count MPV Sodium 139 Potassium 4.6 Chloride 104 Carbon Dioxide 30 Anion Gap 5 L BUN 20.0 H Creatinine 1.2 Est GFR (CKD-EPI)AfAm 83.54 Est GFR (CKD-EPI)NonAf 72.08 Random Glucose 93 Calcium 9.1 Total Bilirubin 0.6 AST 16 ALT 16 Alkaline Phosphatase 72 Total Protein 7.0 Albumin 3.3 L Syphilis Serology COVID-19 (BIRD) repeat BUN pending aaox3 ambulating no acute distress Assessment: 06/05/20 10:46 withdrawals Plan: continue detox repeated BUN lab pending
[2020-06-05] MEDS: QUEtiapine FUMARATE 50 MG TABLET PO SCH (22:31)
[2020-06-05] MEDS: MELATONIN 5 MG TABLETS PO SCH (22:31)
[2020-06-05] MEDS: THIAMINE HCL 100 MG TABLET (FP) PO SCH (22:31)
[2020-06-06] MEDS ORDERED: METHADONE HCL 10 MG TABLET ONE (05:32)
[2020-06-06] MEDS ORDERED: METHADONE HCL 40 MG DISPERSABLE TABLET ONE (05:32)
[2020-06-06] MEDS: METHADONE 80 MG, METHADONE 10 MG PO SCH (06:18)
[2020-06-06] MEDS: chlordiazePOXIDE HCL 10 MG CAPSULE PO SCH ×2 (06:18→18:01)
[2020-06-06] MEDS: SPIRONOLACTONE 25 MG TABLET PO SCH ×2 (06:20→18:01)
[2020-06-06] MEDS: SERTRALINE HCL 50 MG TABLET (FP) PO SCH (10:49)
[2020-06-06] MEDS: PRENATAL VITAMINS W/ FOLIC ACID TABLET (FP) PO SCH (10:49)
[2020-06-06] MEDS: NICOTINE 7 MG/24 HOURS TOPICAL PATCH TD SCH (10:50)
[2020-06-06] MEDS: ESTRADIOL 2 MG TABLET (NON-FORMULARY) PO SCH ×2 (10:50→22:28)
[2020-06-06] MEDS: GABAPENTIN 400 MG CAPSULE PO SCH ×2 (10:50→22:28)
--- NOTE | 2020-06-06 18:35 | PN ---
[facility] CIWA - CIWA Score Nausea/Vomitin-No Nausea/No Vomiting Muscle Tremors: None Anxiety: 2 Agitation: 1-Slight > Activity Paroxysmal Sweats: No Perspiration Orientation: 0-Oriented Tacttile Disturbances: 0-None Auditory Disturbances: 0-None Visual Disturbances: 1-Very Mild Sensitivity Headache: 0-None Present CIWA-Ar Total Score: 4 S Progress Note (SOAP) Subjective: Anxious, Restless. Objective: Patient A & O X 3, Observed Ambulating on Detox Unit Unassisted. In No Acute Distress. 06/06/20 18:31 Vital Signs Temperature 97.3 F L 06/06/20 12:30 Pulse Rate 66 06/06/20 12:30 Respiratory Rate 18 06/06/20 12:30 Blood Pressure 101/54 L 06/06/20 12:30 O2 Sat by Pulse Oximetry (%) 98 06/06/20 05:37 Laboratory Tests 06/02/20 06/03/20 06/03/20 10:50 07:50 07:50 WBC 9.2 RBC 4.49 Hgb 13.1 Hct 40.1 MCV 89.3 MCH 29.3 MCHC 32.8 RDW 13.2 Plt Count 246 MPV 8.4 Sodium Potassium Chloride Carbon Dioxide Anion Gap BUN Creatinine Est GFR (CKD-EPI)AfAm Est GFR (CKD-EPI)NonAf Random Glucose Calcium Total Bilirubin AST ALT Alkaline Phosphatase Total Protein Albumin Syphilis Serology Non-reactive COVID-19 (BIRD) Not detected 06/03/20 06/05/20 07:50 08:20 WBC RBC Hgb Hct MCV MCH MCHC RDW Plt Count MPV Sodium 139 Potassium 4.6 Chloride 104 Carbon Dioxide 30 Anion Gap 5 L BUN 20.0 H 22.1 H Creatinine 1.2 Est GFR (CKD-EPI)AfAm 83.54 Est GFR (CKD-EPI)NonAf 72.08 Random Glucose 93 Calcium 9.1 Total Bilirubin 0.6 AST 16 ALT 16 Alkaline Phosphatase 72 Total Protein 7.0 Albumin 3.3 L Syphilis Serology COVID-19 (BIRD) Lab Results Noted. BUN mildly elevated. 06/06/20 18:32 Assessment: 06/06/20 18:32 WITHDRAWAL SYMPTOMS. AZOTEMIA. Plan: Continue Detox. Increase Daily Oral Water Intake. Patient scheduled for D/C from detox unit tomorrow pending pre-discharge medical evaluation by covering medical provider.
[2020-06-06] MEDS: QUEtiapine FUMARATE 50 MG TABLET PO SCH (22:28)
[2020-06-06] MEDS: MELATONIN 5 MG TABLETS PO SCH (22:28)
[2020-06-06] MEDS: THIAMINE HCL 100 MG TABLET (FP) PO SCH (22:28)
[2020-06-07] MEDS ORDERED: METHADONE HCL 10 MG TABLET ONE (04:49)
[2020-06-07] MEDS ORDERED: METHADONE HCL 40 MG DISPERSABLE TABLET ONE (04:49)
[2020-06-07] MEDS ORDERED: chlordiazePOXIDE HCL 10 MG CAPSULE PO ONE (05:00)
[2020-06-07] MEDS: SPIRONOLACTONE 25 MG TABLET PO SCH (05:20)
[2020-06-07] MEDS: METHADONE 80 MG, METHADONE 10 MG PO SCH (05:21)
[2020-06-07] MEDS: PRENATAL VITAMINS W/ FOLIC ACID TABLET (FP) PO SCH (10:56)
[2020-06-07] MEDS: GABAPENTIN 400 MG CAPSULE PO SCH (10:57)
[2020-06-07] MEDS: SERTRALINE HCL 50 MG TABLET (FP) PO SCH (10:57)
[2020-06-07] MEDS: ESTRADIOL 2 MG TABLET (NON-FORMULARY) PO SCH (10:57)
[2020-06-07] MEDS: NICOTINE 7 MG/24 HOURS TOPICAL PATCH TD SCH (10:58)
[2020-06-07 12:15] VITALS: BP 101/62; PULSE 65; TEMP 97.1
--- NOTE | 2020-06-07 16:11 | DS ---
[facility] Detox Discharge Summary Admission Date: 06/02/20 Discharge Date: 06/07/20 - History Present History: Alcohol Dependence, Opioid Dependence, MMTP Additional Comments: Pt completed detox successfully and discharged safely to [facility] rehab Pertinent Past History: Asthma - Physical Exam Results Vital Signs: Vital Signs Temperature 97.1 F L 06/07/20 10:00 Pulse Rate 65 06/07/20 10:00 Respiratory Rate 18 06/07/20 10:00 Blood Pressure 101/62 06/07/20 10:00 O2 Sat by Pulse Oximetry (%) 96 06/07/20 04:30 Pertinent Admission Physical Exam Findings: Withdrawal sxs Laboratory Tests 06/02/20 06/03/20 06/03/20 10:50 07:50 07:50 WBC 9.2 RBC 4.49 Hgb 13.1 Hct 40.1 MCV 89.3 MCH 29.3 MCHC 32.8 RDW 13.2 Plt Count 246 MPV 8.4 Sodium Potassium Chloride Carbon Dioxide Anion Gap BUN Creatinine Est GFR (CKD-EPI)AfAm Est GFR (CKD-EPI)NonAf Random Glucose Calcium Total Bilirubin AST ALT Alkaline Phosphatase Total Protein Albumin Syphilis Serology Non-reactive COVID-19 (BIRD) Not detected 06/03/20 06/05/20 07:50 08:20 WBC RBC Hgb Hct MCV MCH MCHC RDW Plt Count MPV Sodium 139 Potassium 4.6 Chloride 104 Carbon Dioxide 30 Anion Gap 5 L BUN 20.0 H 22.1 H Creatinine 1.2 Est GFR (CKD-EPI)AfAm 83.54 Est GFR (CKD-EPI)NonAf 72.08 Random Glucose 93 Calcium 9.1 Total Bilirubin 0.6 AST 16 ALT 16 Alkaline Phosphatase 72 Total Protein 7.0 Albumin 3.3 L Syphilis Serology COVID-19 (BIRD) Labs reviewed: bun high (encourage to drink more water) - Treatment Hospital Course: Detox Protocol Followed, Detoxed Safely, Responded well, Discharged Condition Good, Rehab Referral Accepted - Medication Discharge Medications: Ambulatory Orders Methadone [Dolophine -] 90 mg PO DAILY 08/01/19 Quetiapine Fumarate [Seroquel -] 50 mg PO HS #30 tablet 09/22/19 Estradiol 4 mg PO BID #30 tablet 09/23/19 Spironolactone [Aldactone] 100 mg PO BID 11/23/19 Gabapentin [Neurontin -] 400 mg PO BID 06/07/20 Sertraline HCl [Zoloft -] 150 mg PO DAILY 06/07/20 - Diagnosis (1) Azotemia Status: Acute (2) Asthma Status: Chronic (3) Anxiety Status: Chronic (4) Depression Status: Chronic (5) Alcohol dependence with withdrawal, uncomplicated Status: Acute (6) Nicotine dependence Status: Chronic Qualifiers: Nicotine product type: cigarettes Substance use status: uncomplicated Qualified Code(s): F17.210 - Nicotine dependence, cigarettes, uncomplicated (7) Opioid dependence on agonist therapy Status: Acute - AMA Did Patient Leave Against Medical Advice: No (Accepted referral to [facility] inpatient rehab)
== END 2020-06-07 14:15 | disposition other institution (70) | DRG 773 ==
LOC: YASAS 18:54 → Y6N 22:36
PROVIDERS: ADMIT Allergy & Immunology; ATTEND Allergy & Immunology
PROC: HZ2ZZZZ Detoxification Services for Substance Abuse Treatment (ICD-10-PCS; principal; 2020-06-02)
DX: F10.230 Alcohol dependence with withdrawal, uncomplicated (principal); F14.20 Cocaine dependence, uncomplicated; F11.20 Opioid dependence, uncomplicated; F17.210 Nicotine dependence, cigarettes, uncomplicated; F41.9 Anxiety disorder, unspecified; F32.9 Major depressive disorder, single episode, unspecified; F64.0 Transsexualism; J45.909 Unspecified asthma, uncomplicated; R79.89 Other specified abnormal findings of blood chemistry; Z91.5 Personal history of self-harm; Z56.0 Unemployment, unspecified; Z59.0 Homelessness
CPT/HCPCS: 36415; 80053; 84520; 85027; 86780; U0003

== ENCOUNTER 2020-06-07 11:39 | Inpatient (IN) | payer OTHER ==
[2020-06-07] MEDS ORDERED: guaiFENesin 200 MG/10 ML 10 ML UNIT-DOSE CUPS PO PRN (16:13)
[2020-06-07] MEDS ORDERED: MAGNESIUM CITRATE 300 ML BOTTLE PO PRN (16:13)
[2020-06-07] MEDS ORDERED: MAG HYDROX/AL HYDROX/SIMETH 30 ML UNIT-DOSE CUP PO PRN (16:13)
[2020-06-07] MEDS ORDERED: P-EPHED 60MG/TRIPROLIDI 2.5MG TABLET PO PRN (16:13)
[2020-06-07] MEDS ORDERED: IBUPROFEN 400 MG TABLET (FP) PO PRN (16:13)
[2020-06-07] MEDS ORDERED: MAGNESIUM HYDROX 2400MG/30ML ORAL SUSPENSION 30 ML CUP PO PRN (16:13)
[2020-06-07] MEDS ORDERED: LOPERAMIDE HCL 2 MG CAPSULE PO PRN (16:13)
[2020-06-07] MEDS ORDERED: NICOTINE POLACRILEX 2 MG GUM BUC PRN (16:13)
[2020-06-07] MEDS ORDERED: ACETAMINOPHEN 325 MG TABLET (FP) PO PRN (16:13)
--- NOTE | 2020-06-07 16:13 | HP ---
[facility] Rehab Assess/Revision - Admission History Admitted to Rehab from: [facility] Date of Admission to Rehab: 06/07/20 - Vital signs Vital Signs: Vital Signs Period Temp Pulse Resp BP Sys/Delarosa Pulse Ox Last 24 Hr 97.3 F 66 18 101/63 98 - Findings Detox History & Physical reviewed: Yes Concur with findings: Yes Inpatient Rehab Admission - Rehab Decision to Admit Inpatient rehab admission?: Yes - Initial Determination Are CD services needed?: No Free of communicable disease: Yes Not in need of hospitalization: No - Rehab Admission Criteria Previous failed treatment: Yes Poor recovery environment: Yes Comorbidities: Yes Lacks judgement: Yes Patient is meeting Inpatient Rehab admission criteria:: Yes
[2020-06-07] MEDS: THIAMINE HCL 100 MG TABLET (FP) PO SCH (21:46)
[2020-06-07] MEDS: hydrOXYzine PAMOATE 25 MG CAPSULE (FP) PO PRN (21:46)
[2020-06-07] MEDS ORDERED: PT OWN MED DRAWER 7, Y5N ONE (21:48)
[2020-06-07] MEDS: MELATONIN 5 MG TABLETS PO SCH (21:51)
[2020-06-07] MEDS: GABAPENTIN 400 MG CAPSULE PO SCH (21:51)
[2020-06-07] MEDS: QUEtiapine FUMARATE 50 MG TABLET PO SCH (21:52)
[2020-06-08] MEDS: SPIRONOLACTONE 25 MG TABLET PO SCH ×3 (00:07→21:20)
[2020-06-08] MEDS: ESTRADIOL 2 MG TABLET (NON-FORMULARY) PO SCH ×3 (00:07→21:23)
[2020-06-08] MEDS ORDERED: METHADONE HCL 10 MG TABLET PO SCH (06:00)
[2020-06-08] MEDS ORDERED: PT OWN MED DRAWER 7, Y5N ONE ×2 (09:30→21:23)
[2020-06-08] MEDS: SERTRALINE HCL 50 MG TABLET (FP) PO SCH (10:32)
[2020-06-08] MEDS: PRENATAL VITAMINS W/ FOLIC ACID TABLET (FP) PO SCH (10:32)
[2020-06-08] MEDS: GABAPENTIN 400 MG CAPSULE PO SCH ×2 (10:32→21:20)
[2020-06-08] MEDS: hydrOXYzine PAMOATE 25 MG CAPSULE (FP) PO PRN (21:20)
[2020-06-08] MEDS: THIAMINE HCL 100 MG TABLET (FP) PO SCH (21:20)
[2020-06-08] MEDS: QUEtiapine FUMARATE 50 MG TABLET PO SCH (21:20)
[2020-06-08] MEDS: MELATONIN 5 MG TABLETS PO SCH (21:21)
[2020-06-09] MEDS ORDERED: METHADONE HCL 10 MG TABLET ONE (06:25)
[2020-06-09] MEDS ORDERED: METHADONE HCL 40 MG DISPERSABLE TABLET ONE (06:25)
[2020-06-09] MEDS: METHADONE 80 MG, METHADONE 10 MG PO SCH (06:49)
[2020-06-09] MEDS ORDERED: PT OWN MED DRAWER 7, Y5N ONE ×2 (09:29→22:06)
[2020-06-09] MEDS: SERTRALINE HCL 50 MG TABLET (FP) PO SCH (09:58)
[2020-06-09] MEDS: GABAPENTIN 400 MG CAPSULE PO SCH ×2 (09:58→22:06)
[2020-06-09] MEDS: ESTRADIOL 2 MG TABLET (NON-FORMULARY) PO SCH ×2 (09:58→22:05)
[2020-06-09] MEDS: PRENATAL VITAMINS W/ FOLIC ACID TABLET (FP) PO SCH (09:58)
[2020-06-09] MEDS: SPIRONOLACTONE 25 MG TABLET PO SCH ×2 (10:00→22:12)
[2020-06-09] MEDS: MENTHOL/PHENOL 1 EACH UD MM PRN ×2 (11:53→16:54)
[2020-06-09] MEDS: QUEtiapine FUMARATE 50 MG TABLET PO SCH (22:06)
[2020-06-09] MEDS: MELATONIN 5 MG TABLETS PO SCH (22:06)
[2020-06-09] MEDS: THIAMINE HCL 100 MG TABLET (FP) PO SCH (22:08)
[2020-06-10] MEDS ORDERED: METHADONE HCL 10 MG TABLET ONE (03:17)
[2020-06-10] MEDS ORDERED: METHADONE HCL 40 MG DISPERSABLE TABLET ONE (03:17)
[2020-06-10] MEDS: METHADONE 80 MG, METHADONE 10 MG PO SCH (06:33)
[2020-06-10] MEDS ORDERED: PT OWN MED DRAWER 7, Y5N ONE (09:11)
[2020-06-10] MEDS: ESTRADIOL 2 MG TABLET (NON-FORMULARY) PO SCH ×2 (09:35→21:08)
[2020-06-10] MEDS: SERTRALINE HCL 50 MG TABLET (FP) PO SCH (09:35)
[2020-06-10] MEDS: PRENATAL VITAMINS W/ FOLIC ACID TABLET (FP) PO SCH (09:35)
[2020-06-10] MEDS: GABAPENTIN 400 MG CAPSULE PO SCH ×2 (09:35→21:07)
[2020-06-10] MEDS: SPIRONOLACTONE 25 MG TABLET PO SCH ×2 (09:35→21:06)
[2020-06-10] MEDS: THIAMINE HCL 100 MG TABLET (FP) PO SCH (21:06)
[2020-06-10] MEDS: hydrOXYzine PAMOATE 25 MG CAPSULE (FP) PO PRN (21:07)
[2020-06-10] MEDS: QUEtiapine FUMARATE 50 MG TABLET PO SCH (21:07)
[2020-06-10] MEDS: MELATONIN 5 MG TABLETS PO SCH (21:07)
[2020-06-11] MEDS ORDERED: METHADONE HCL 10 MG TABLET ONE (03:18)
[2020-06-11] MEDS ORDERED: METHADONE HCL 40 MG DISPERSABLE TABLET ONE (03:18)
[2020-06-11] MEDS: METHADONE 80 MG, METHADONE 10 MG PO SCH (06:32)
[2020-06-11] MEDS ORDERED: PT OWN MED DRAWER 7, Y5N ONE ×2 (09:11→19:38)
[2020-06-11] MEDS: SERTRALINE HCL 50 MG TABLET (FP) PO SCH (10:24)
[2020-06-11] MEDS: ESTRADIOL 2 MG TABLET (NON-FORMULARY) PO SCH ×2 (10:26→21:32)
[2020-06-11] MEDS: GABAPENTIN 400 MG CAPSULE PO SCH ×2 (10:26→21:32)
[2020-06-11] MEDS: SPIRONOLACTONE 25 MG TABLET PO SCH ×2 (10:26→21:31)
[2020-06-11] MEDS: PRENATAL VITAMINS W/ FOLIC ACID TABLET (FP) PO SCH (10:26)
--- NOTE | 2020-06-11 11:22 | PN ---
[facility] Progress Note Note: Pt requests Psych consult to Re-eval medications. Pt requesting to lower his Methadone maintenance dose to 80 mg daily because drowsy. however, pt also requesting Belsomra for sleep. Vital Signs - 24 hr 06/10/20 06/10/20 06/10/20 14:36 20:39 21:39 Temperature Pulse Rate 66 Respiratory Rate Blood Pressure 109/71 O2 Sat by Pulse 95 95 Oximetry (%) 06/11/20 06/11/20 06:31 09:34 Temperature 97.3 F L Pulse Rate 73 73 Respiratory 20 Rate Blood Pressure 100/64 102/58 L O2 Sat by Pulse 99 Oximetry (%) Alert o x 3 nad visible on the unit, oob ambulating with steady gait. Extremities;Active FROM, all limbs; No edema, skin intact. S/P detox D/W pt and counselor Ms Stacey Little will contact pt's [facility] program with a consent to fax request for Methadone dose change. D/W pt to elevate legs while in bed. Psych consult follow up
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
[2020-06-11] MEDS: QUEtiapine FUMARATE 50 MG TABLET PO SCH (21:31)
[2020-06-11] MEDS: THIAMINE HCL 100 MG TABLET (FP) PO SCH (21:31)
[2020-06-11] MEDS: hydrOXYzine PAMOATE 25 MG CAPSULE (FP) PO PRN (21:32)
[2020-06-11] MEDS: MELATONIN 5 MG TABLETS PO SCH (21:32)
[2020-06-11] MEDS: MENTHOL/PHENOL 1 EACH UD MM PRN (21:35)
[2020-06-11] MEDS ORDERED: SUVOREXANT 10 MG TABLET PO PRN (22:00)
[2020-06-12] MEDS ORDERED: METHADONE HCL 10 MG TABLET ONE (05:24)
[2020-06-12] MEDS ORDERED: METHADONE HCL 40 MG DISPERSABLE TABLET ONE (05:24)
[2020-06-12] MEDS: METHADONE 80 MG, METHADONE 10 MG PO SCH (06:30)
[2020-06-12] MEDS: ESTRADIOL 2 MG TABLET (NON-FORMULARY) PO SCH ×2 (10:06→21:11)
[2020-06-12] MEDS: SERTRALINE HCL 50 MG TABLET (FP) PO SCH (10:06)
[2020-06-12] MEDS: GABAPENTIN 400 MG CAPSULE PO SCH ×2 (10:06→21:09)
[2020-06-12] MEDS: SPIRONOLACTONE 25 MG TABLET PO SCH ×2 (10:06→21:12)
[2020-06-12] MEDS: PRENATAL VITAMINS W/ FOLIC ACID TABLET (FP) PO SCH (10:06)
[2020-06-12] MEDS: THIAMINE HCL 100 MG TABLET (FP) PO SCH (21:09)
[2020-06-12] MEDS: hydrOXYzine PAMOATE 25 MG CAPSULE (FP) PO PRN (21:09)
[2020-06-12] MEDS: QUEtiapine FUMARATE 50 MG TABLET PO SCH (21:09)
[2020-06-12] MEDS: MELATONIN 5 MG TABLETS PO SCH (21:11)
[2020-06-13] MEDS ORDERED: METHADONE HCL 10 MG TABLET ONE (03:23)
[2020-06-13] MEDS ORDERED: METHADONE HCL 40 MG DISPERSABLE TABLET ONE (03:24)
[2020-06-13] MEDS: METHADONE 80 MG, METHADONE 10 MG PO SCH (07:05)
[2020-06-13] MEDS: SERTRALINE HCL 50 MG TABLET (FP) PO SCH (11:04)
[2020-06-13] MEDS: ESTRADIOL 2 MG TABLET (NON-FORMULARY) PO SCH ×2 (11:04→21:35)
[2020-06-13] MEDS: SPIRONOLACTONE 25 MG TABLET PO SCH ×2 (11:04→21:35)
[2020-06-13] MEDS: GABAPENTIN 400 MG CAPSULE PO SCH ×2 (11:05→21:38)
[2020-06-13] MEDS: PRENATAL VITAMINS W/ FOLIC ACID TABLET (FP) PO SCH (11:05)
[2020-06-13] MEDS ORDERED: PT OWN MED DRAWER 7, Y5N ONE ×2 (21:34→22:18)
[2020-06-13] MEDS: MELATONIN 5 MG TABLETS PO SCH (21:36)
[2020-06-13] MEDS: QUEtiapine FUMARATE 50 MG TABLET PO SCH (21:38)
[2020-06-13] MEDS: THIAMINE HCL 100 MG TABLET (FP) PO SCH (21:39)
[2020-06-14] MEDS ORDERED: METHADONE HCL 40 MG DISPERSABLE TABLET ONE (03:19)
[2020-06-14] MEDS ORDERED: METHADONE HCL 10 MG TABLET ONE (03:19)
[2020-06-14] MEDS: METHADONE 80 MG, METHADONE 10 MG PO SCH (06:44)
[2020-06-14] MEDS: ESTRADIOL 2 MG TABLET (NON-FORMULARY) PO SCH ×2 (10:20→21:05)
[2020-06-14] MEDS: PRENATAL VITAMINS W/ FOLIC ACID TABLET (FP) PO SCH (10:21)
[2020-06-14] MEDS: SPIRONOLACTONE 25 MG TABLET PO SCH ×2 (10:21→21:04)
[2020-06-14] MEDS: GABAPENTIN 400 MG CAPSULE PO SCH ×2 (10:21→21:05)
[2020-06-14] MEDS: SERTRALINE HCL 50 MG TABLET (FP) PO SCH (10:22)
[2020-06-14] MEDS ORDERED: PT OWN MED DRAWER 7, Y5N ONE (20:44)
[2020-06-14] MEDS: MELATONIN 5 MG TABLETS PO SCH (21:05)
[2020-06-14] MEDS: QUEtiapine FUMARATE 50 MG TABLET PO SCH (21:05)
[2020-06-14] MEDS: THIAMINE HCL 100 MG TABLET (FP) PO SCH (21:05)
[2020-06-14] MEDS: SUVOREXANT 10 MG TABLET PO PRN (21:10)
[2020-06-15] MEDS ORDERED: METHADONE HCL 40 MG DISPERSABLE TABLET ONE (03:19)
[2020-06-15] MEDS ORDERED: METHADONE HCL 10 MG TABLET ONE (03:19)
[2020-06-15] MEDS: METHADONE 80 MG, METHADONE 10 MG PO SCH (06:30)
[2020-06-15] MEDS: SPIRONOLACTONE 25 MG TABLET PO SCH ×2 (10:29→21:11)
[2020-06-15] MEDS: PRENATAL VITAMINS W/ FOLIC ACID TABLET (FP) PO SCH (10:29)
[2020-06-15] MEDS: ESTRADIOL 2 MG TABLET (NON-FORMULARY) PO SCH ×2 (10:29→21:13)
[2020-06-15] MEDS: SERTRALINE HCL 50 MG TABLET (FP) PO SCH (10:30)
[2020-06-15] MEDS: GABAPENTIN 400 MG CAPSULE PO SCH ×2 (10:30→21:14)
[2020-06-15] MEDS ORDERED: PT OWN MED DRAWER 7, Y5N ONE (10:32)
[2020-06-15] MEDS: THIAMINE HCL 100 MG TABLET (FP) PO SCH (21:11)
[2020-06-15] MEDS: SUVOREXANT 10 MG TABLET PO PRN (21:11)
[2020-06-15] MEDS: MELATONIN 5 MG TABLETS PO SCH (21:13)
[2020-06-15] MEDS: QUEtiapine FUMARATE 50 MG TABLET PO SCH (21:14)
[2020-06-16] MEDS ORDERED: METHADONE HCL 10 MG TABLET ONE (05:43)
[2020-06-16] MEDS ORDERED: METHADONE HCL 40 MG DISPERSABLE TABLET ONE (05:44)
[2020-06-16] MEDS ORDERED: METHADONE 80 MG, METHADONE 10 MG PO SCH (06:00)
[2020-06-16] MEDS ORDERED: METHADONE HCL 10 MG TABLET PO SCH (06:00)
[2020-06-16] MEDS: GABAPENTIN 400 MG CAPSULE PO SCH ×2 (10:22→21:09)
[2020-06-16] MEDS: PRENATAL VITAMINS W/ FOLIC ACID TABLET (FP) PO SCH (10:22)
[2020-06-16] MEDS: SPIRONOLACTONE 25 MG TABLET PO SCH ×2 (10:23→21:09)
[2020-06-16] MEDS: ESTRADIOL 2 MG TABLET (NON-FORMULARY) PO SCH ×2 (10:23→21:10)
[2020-06-16] MEDS: SERTRALINE HCL 50 MG TABLET (FP) PO SCH (10:23)
[2020-06-16] MEDS ORDERED: PT OWN MED DRAWER 7, Y5N ONE (11:20)
--- NOTE | 2020-06-16 12:04 | PN ---
S Progress Note Note: Fax received from pt's clinic-[facility]- Methadone Treatment [id number] hard copy in pt's chart). light armored reconnaissance officer of program, Dr. Juliette Orlando authorized to decrease pt's methadone dose per pt's request. Letter reads as below: To:Nursing/Medical Personal at [facility] Abiola Porter( 71) is a patient at our facility. She is enrolled in our methadone treatment program and is currently receiving 90 mgs of methadone daily. As per her request and feelings of over sedation, I am asking that you decrease her dose by 10 mgs so that she can have 80 mgs of methadone daily. Should you have any questions or concerns, please contact me at [phone]. Thank you Juliette Orlando M.D Engineering Mechanic Vital Signs - 24 hr 06/15/20 06/15/20 06/16/20 20:15 20:39 06:36 Temperature 97.3 F L 97.5 F L Pulse Rate 63 59 L Respiratory 18 20 Rate Blood Pressure 111/71 121/77 O2 Sat by Pulse 96 96 98 Oximetry (%) 06/16/20 06/16/20 10:00 14:48 Temperature Pulse Rate 56 L Respiratory Rate Blood Pressure 102/67 O2 Sat by Pulse 98 Oximetry (%) Alert o x 3 nad oob ambulating with steady gait. Pt on MMTP Plan:Methadone will be decreased to 8o mg po daily starting 06/17/20.
[2020-06-16] MEDS: THIAMINE HCL 100 MG TABLET (FP) PO SCH (21:09)
[2020-06-16] MEDS: hydrOXYzine PAMOATE 25 MG CAPSULE (FP) PO PRN (21:09)
[2020-06-16] MEDS: SUVOREXANT 10 MG TABLET PO PRN (21:09)
[2020-06-16] MEDS: QUEtiapine FUMARATE 50 MG TABLET PO SCH (21:09)
[2020-06-16] MEDS: MELATONIN 5 MG TABLETS PO SCH (21:10)
[2020-06-17] MEDS: METHADONE HCL 40 MG DISPERSABLE TABLET PO SCH (06:52)
[2020-06-17] MEDS: SERTRALINE HCL 50 MG TABLET (FP) PO SCH (10:32)
[2020-06-17] MEDS: PRENATAL VITAMINS W/ FOLIC ACID TABLET (FP) PO SCH (10:32)
[2020-06-17] MEDS: ESTRADIOL 2 MG TABLET (NON-FORMULARY) PO SCH ×2 (10:32→21:43)
[2020-06-17] MEDS: GABAPENTIN 400 MG CAPSULE PO SCH ×2 (10:32→21:41)
[2020-06-17] MEDS: SPIRONOLACTONE 25 MG TABLET PO SCH ×2 (10:33→21:42)
[2020-06-17] MEDS: hydrOXYzine PAMOATE 25 MG CAPSULE (FP) PO PRN (21:41)
[2020-06-17] MEDS: THIAMINE HCL 100 MG TABLET (FP) PO SCH (21:41)
[2020-06-17] MEDS: SUVOREXANT 10 MG TABLET PO PRN (21:41)
[2020-06-17] MEDS: QUEtiapine FUMARATE 50 MG TABLET PO SCH (21:41)
[2020-06-17] MEDS: MELATONIN 5 MG TABLETS PO SCH (21:43)
[2020-06-18] MEDS: METHADONE HCL 40 MG DISPERSABLE TABLET PO SCH (06:46)
[2020-06-18] MEDS ORDERED: PT OWN MED DRAWER 7, Y5N ONE (09:05)
[2020-06-18] MEDS: SPIRONOLACTONE 25 MG TABLET PO SCH ×2 (10:17→21:08)
[2020-06-18] MEDS: GABAPENTIN 400 MG CAPSULE PO SCH ×2 (10:17→21:07)
[2020-06-18] MEDS: PRENATAL VITAMINS W/ FOLIC ACID TABLET (FP) PO SCH (10:17)
[2020-06-18] MEDS: SERTRALINE HCL 50 MG TABLET (FP) PO SCH (10:17)
[2020-06-18] MEDS: ESTRADIOL 2 MG TABLET (NON-FORMULARY) PO SCH ×2 (10:19→21:08)
[2020-06-18] MEDS: hydrOXYzine PAMOATE 25 MG CAPSULE (FP) PO PRN (21:07)
[2020-06-18] MEDS: QUEtiapine FUMARATE 50 MG TABLET PO SCH (21:07)
[2020-06-18] MEDS: THIAMINE HCL 100 MG TABLET (FP) PO SCH (21:07)
[2020-06-18] MEDS: SUVOREXANT 10 MG TABLET PO PRN (21:07)
[2020-06-18] MEDS: MELATONIN 5 MG TABLETS PO SCH (21:08)
[2020-06-19] MEDS: METHADONE HCL 40 MG DISPERSABLE TABLET PO SCH (06:31)
[2020-06-19] MEDS: SERTRALINE HCL 50 MG TABLET (FP) PO SCH (10:10)
[2020-06-19] MEDS: GABAPENTIN 400 MG CAPSULE PO SCH ×2 (10:10→21:20)
[2020-06-19] MEDS: ESTRADIOL 2 MG TABLET (NON-FORMULARY) PO SCH ×2 (10:10→21:19)
[2020-06-19] MEDS: SPIRONOLACTONE 25 MG TABLET PO SCH ×2 (10:10→21:21)
[2020-06-19] MEDS: PRENATAL VITAMINS W/ FOLIC ACID TABLET (FP) PO SCH (10:11)
[2020-06-19] MEDS: SUVOREXANT 10 MG TABLET PO PRN (21:18)
[2020-06-19] MEDS: THIAMINE HCL 100 MG TABLET (FP) PO SCH (21:19)
[2020-06-19] MEDS: MELATONIN 5 MG TABLETS PO SCH (21:20)
[2020-06-19] MEDS: QUEtiapine FUMARATE 50 MG TABLET PO SCH (21:20)
[2020-06-20] MEDS: METHADONE HCL 40 MG DISPERSABLE TABLET PO SCH (06:31)
[2020-06-20] MEDS: GABAPENTIN 400 MG CAPSULE PO SCH ×2 (09:54→21:14)
[2020-06-20] MEDS: SERTRALINE HCL 50 MG TABLET (FP) PO SCH (09:54)
[2020-06-20] MEDS: SPIRONOLACTONE 25 MG TABLET PO SCH ×2 (09:55→21:15)
[2020-06-20] MEDS: ESTRADIOL 2 MG TABLET (NON-FORMULARY) PO SCH ×2 (09:55→21:15)
[2020-06-20] MEDS: PRENATAL VITAMINS W/ FOLIC ACID TABLET (FP) PO SCH (09:55)
[2020-06-20] MEDS ORDERED: PT OWN MED DRAWER 7, Y5N ONE (10:35)
[2020-06-20] MEDS: SUVOREXANT 10 MG TABLET PO PRN (21:14)
[2020-06-20] MEDS: THIAMINE HCL 100 MG TABLET (FP) PO SCH (21:14)
[2020-06-20] MEDS: QUEtiapine FUMARATE 50 MG TABLET PO SCH (21:14)
[2020-06-20] MEDS: hydrOXYzine PAMOATE 25 MG CAPSULE (FP) PO PRN (21:14)
[2020-06-20] MEDS: MELATONIN 5 MG TABLETS PO SCH (21:15)
[2020-06-21] MEDS: METHADONE HCL 40 MG DISPERSABLE TABLET PO SCH (06:55)
[2020-06-21] MEDS: ESTRADIOL 2 MG TABLET (NON-FORMULARY) PO SCH ×2 (09:55→21:17)
[2020-06-21] MEDS: SERTRALINE HCL 50 MG TABLET (FP) PO SCH (09:55)
[2020-06-21] MEDS: GABAPENTIN 400 MG CAPSULE PO SCH ×2 (09:55→21:17)
[2020-06-21] MEDS: SPIRONOLACTONE 25 MG TABLET PO SCH ×2 (09:55→21:16)
[2020-06-21] MEDS: PRENATAL VITAMINS W/ FOLIC ACID TABLET (FP) PO SCH (09:56)
[2020-06-21] MEDS ORDERED: PT OWN MED DRAWER 7, Y5N ONE (10:13)
--- NOTE | 2020-06-21 12:22 | PN ---
S Progress Note Note: Psychiatric nurse practitioner note: Patient scheduled for discharge on 06/22/20. A 30 day prescription of Zoloft 150mg daily + Gabapentin 400mg BID + Seroquel 50mg HS was electronically sent to [facility], [address] [place] [address].
[2020-06-21] MEDS: hydrOXYzine PAMOATE 25 MG CAPSULE (FP) PO PRN (21:15)
[2020-06-21] MEDS: QUEtiapine FUMARATE 50 MG TABLET PO SCH (21:15)
[2020-06-21] MEDS: THIAMINE HCL 100 MG TABLET (FP) PO SCH (21:16)
[2020-06-21] MEDS: MELATONIN 5 MG TABLETS PO SCH (21:17)
[2020-06-21] MEDS ORDERED: SUVOREXANT 10 MG TABLET PO PRN (22:00)
[2020-06-22] MEDS: METHADONE HCL 40 MG DISPERSABLE TABLET PO SCH (06:21)
[2020-06-22 06:54] VITALS: TEMP 97.6
--- NOTE | 2020-06-22 08:41 | DS ---
[facility] Rehab Discharge Summary - [facility] Rehab Discharge Summary Admission Date: 06/07/20 Discharge Date: 06/22/20 - History Present History: Alcohol dependence, Cocaine dependence, MMTP Pertinent Past History: Asthma Male - to- female transgender PTSD MDD - Discharge Physical Exam Vital Signs: Vital Signs Temperature 97.6 F 06/22/20 06:50 Pulse Rate 77 06/22/20 06:50 Respiratory Rate 18 06/22/20 06:50 Blood Pressure 107/66 06/22/20 06:50 O2 Sat by Pulse Oximetry (%) 98 06/22/20 06:50 General:alert o x 3 Nad, no resp difficulty MSK:Active ROM,all limbs, oob ambulating with steady gait Skin:no edema, skin intact. Pertinent Admission Physical Exam Findings: Unremarkable - Treatment Discharge Condition: Discharge condition good, Rehabilitated safely, Responded well, Outpatient referral accepted Hospital Course: Pt is a 44 y/o transgender male with a hx of AUD admitted to rehab and discharging today. Pt completed detox on before referral to rehab.Pt participated in unit groups and activities. Pt met with her counselor and has been referred to CD aftercare to [facility]- methadone Treatment program with Dr. Juliette Orlando. - Medication Discharge Medications: Ambulatory Orders Methadone [Dolophine -] 90 mg PO DAILY 08/01/19 Quetiapine Fumarate [Seroquel -] 50 mg PO HS #30 tablet 09/22/19 Estradiol 4 mg PO BID #30 tablet 09/23/19 Spironolactone [Aldactone] 100 mg PO BID 11/23/19 Gabapentin [Neurontin -] 400 mg PO BID 06/07/20 Sertraline HCl [Zoloft -] 150 mg PO DAILY 06/07/20 Gabapentin [Neurontin -] 400 mg PO BID #60 capsule 06/21/20 Quetiapine Fumarate [Seroquel -] 50 mg PO HS #30 tablet 06/21/20 Sertraline HCl [Zoloft -] 150 mg PO DAILY #90 tablet 06/21/20 - Medication-Assisted Treatment (MAT) Medication-Assisted Treatment (MAT): No - Discharge Instructions Diet, activity, other medical instructions: Diet: Activity: Other medical instructions: - Diagnosis (1) Alcohol use disorder Current Visit: Yes Status: Chronic (2) Perforated nasal septum Current Visit: Yes Status: Chronic (3) Cocaine dependence, uncomplicated Current Visit: Yes Status: Chronic (4) [id number] transgender person Current Visit: Yes Status: Chronic (5) Nicotine dependence Current Visit: Yes Status: Chronic Qualifiers: Nicotine product type: cigarettes Substance use status: uncomplicated Qualified Code(s): F17.210 - Nicotine dependence, cigarettes, uncomplicated (6) Asthma Current Visit: Yes Status: Chronic Qualifiers: Asthma severity: unspecified severity Asthma persistence: unspecified Asthma complication type: unspecified Qualified Code(s): J45.909 - Unspecified asthma, uncomplicated - Follow-up Referral Minutes to complete discharge: 25 - AMA Did Patient Leave Against Medical Advice: No Additional Comments: Pt reports she has her own hormone pills and does not need courtesy Rx. Pt states she has a PCP Dr. Schneider @ [address] [place] [address] Win Bhatti as her psych provider.
[2020-06-22] MEDS ORDERED: PT OWN MED DRAWER 7, Y5N ONE (08:49)
[2020-06-22] MEDS: PRENATAL VITAMINS W/ FOLIC ACID TABLET (FP) PO SCH (09:09)
[2020-06-22] MEDS: SPIRONOLACTONE 25 MG TABLET PO SCH (09:09)
[2020-06-22] MEDS: GABAPENTIN 400 MG CAPSULE PO SCH (09:10)
[2020-06-22] MEDS: ESTRADIOL 2 MG TABLET (NON-FORMULARY) PO SCH (09:10)
[2020-06-22] MEDS: SERTRALINE HCL 50 MG TABLET (FP) PO SCH (09:10)
[2020-06-22 10:41] VITALS: BP 114/72; PULSE 96
== END 2020-06-22 09:20 | disposition home or self-care (01) | DRG 772 ==
LOC: YASAS 11:39 → Y3E 11:40
PROVIDERS: ADMIT Allergy & Immunology; ATTEND Allergy & Immunology
PROC: HZ42ZZZ Group Counseling for Substance Abuse Treatment, Cognitive-Behavioral (ICD-10-PCS; principal; 2020-06-07)
DX: F10.20 Alcohol dependence, uncomplicated (principal); F14.20 Cocaine dependence, uncomplicated; F11.20 Opioid dependence, uncomplicated; F17.210 Nicotine dependence, cigarettes, uncomplicated; F32.9 Major depressive disorder, single episode, unspecified; F43.10 Post-traumatic stress disorder, unspecified; F64.0 Transsexualism; J45.909 Unspecified asthma, uncomplicated; J34.89 Other specified disorders of nose and nasal sinuses; G47.00 Insomnia, unspecified; Z91.5 Personal history of self-harm

== ENCOUNTER 2021-03-08 12:30 | Inpatient (IN) | payer OTHER ==
[2021-03-08 15:21] VITALS: BMI 32.7
[2021-03-08] MEDS ORDERED: IBUPROFEN 400 MG TABLET (FP) PO PRN (16:46)
[2021-03-08] MEDS ORDERED: hydrOXYzine PAMOATE 25 MG CAPSULE (FP) PO PRN (16:46)
[2021-03-08] MEDS ORDERED: BISMUTH SUBSALICYLATE 524 MG/30 ML PO PRN (16:46)
[2021-03-08] MEDS ORDERED: ACETAMINOPHEN 325 MG TABLET (FP) PO PRN ×2 (16:46)
[2021-03-08] MEDS ORDERED: MENTHOL/PHENOL 1 EACH UD MM PRN (16:46)
[2021-03-08] MEDS ORDERED: MAGNESIUM CITRATE 300 ML BOTTLE PO PRN (16:46)
[2021-03-08] MEDS ORDERED: ONDANSETRON *ODT* 4 MG TABLET SL PRN (16:46)
[2021-03-08] MEDS ORDERED: MAGNESIUM HYDROX 2400MG/30ML ORAL SUSPENSION 30 ML CUP PO PRN (16:46)
[2021-03-08] MEDS ORDERED: MAG HYDROX/AL HYDROX/SIMETH 30 ML UNIT-DOSE CUP PO PRN (16:46)
[2021-03-08] MEDS ORDERED: METHOCARBAMOL 500 MG TABLET PO PRN (16:46)
[2021-03-08] MEDS ORDERED: diazePAM 5 MG TABLET PO PRN (16:47)
[2021-03-08] MEDS: diazePAM 5 MG TABLET PO SCH ×2 (18:04→22:24)
[2021-03-08] MEDS ORDERED: BACITRACIN 15 GM TUBE TOPICAL OINTMENT TP SCH (22:00)
[2021-03-08] MEDS: THIAMINE HCL 100 MG TABLET (FP) PO SCH (22:23)
[2021-03-08] MEDS: MELATONIN 5 MG TABLETS PO SCH (22:23)
[2021-03-08] MEDS: BACITRACIN 0.9 GM PACKET TP SCH (22:23)
[2021-03-09] MEDS: diazePAM 5 MG TABLET PO SCH ×4 (06:25→23:06)
[2021-03-09] MEDS ORDERED: METHADONE HCL 40 MG DISPERSABLE TABLET PO ONE (08:18)
[2021-03-09] MEDS: BACITRACIN 0.9 GM PACKET TP SCH ×2 (10:03→23:03)
[2021-03-09] MEDS: PRENATAL VITAMINS W/ FOLIC ACID TABLET (FP) PO SCH (10:03)
[2021-03-09] MEDS: SERTRALINE HCL 50 MG TABLET (FP) PO SCH (10:03)
[2021-03-09] MEDS: GABAPENTIN 400 MG CAPSULE PO SCH ×2 (10:03→23:07)
[2021-03-09 10:08] LABS: HEMATOCRIT 39.8 % (35.4-49); HEMOGLOBIN 12.8 GM/dL (11.7-16.9); MCH 28.9 pg (25.7-33.7); MCHC 32.2 g/dl (32.0-35.9); MEAN CELL VOLUME 89.9 fl (80-96); MEAN PLT VOLUME 7.9 fl (7.5-11.1); PLATELET COUNT 240 10^3/uL (134-434); RBC 4.42 M/mm3 (4.00-5.60); RDW 12.8 % (11.9-15.9); WHITE BLOOD COUNT 11.3 K/mm3 (4.0-10.0)
[2021-03-09 10:13] LABS: BLOOD UREA NITROGEN 13.3 mg/dL (7-18)
[2021-03-09 10:14] LABS: ALBUMIN 3.2 g/dl (3.4-5.0); CALCIUM 8.8 mg/dL (8.5-10.1)
[2021-03-09 10:18] LABS: BILIRUBIN,TOTAL 0.6 mg/dL (0.2-1)
[2021-03-09] MEDS: MELATONIN 5 MG TABLETS PO SCH (23:03)
[2021-03-09] MEDS: THIAMINE HCL 100 MG TABLET (FP) PO SCH (23:06)
[2021-03-09] MEDS: QUEtiapine FUMARATE 50 MG TABLET PO SCH (23:06)
[2021-03-10] MEDS: diazePAM 5 MG TABLET PO SCH ×2 (06:17→18:29)
[2021-03-10] MEDS: METHADONE HCL 40 MG DISPERSABLE TABLET PO SCH (06:18)
[2021-03-10] MEDS ORDERED: ALBUTEROL SO4 2.5/IPRATROPIUM 0.5 INH SOL 3 ML VIAL.NEB. NEB PRN (09:01)
[2021-03-10] MEDS: SERTRALINE HCL 50 MG TABLET (FP) PO SCH (10:10)
[2021-03-10] MEDS: guaiFENesin 200 MG/10 ML 10 ML UNIT-DOSE CUPS PO PRN ×2 (10:10→20:41)
[2021-03-10] MEDS: guaiFENesin 600 MG TABLET.ER (FP) PO SCH ×2 (10:10→22:03)
[2021-03-10] MEDS: GABAPENTIN 400 MG CAPSULE PO SCH ×2 (10:10→22:03)
[2021-03-10] MEDS: BACITRACIN 0.9 GM PACKET TP SCH ×2 (10:11→22:03)
[2021-03-10] MEDS: PRENATAL VITAMINS W/ FOLIC ACID TABLET (FP) PO SCH (10:11)
[2021-03-10] MEDS: QUEtiapine FUMARATE 50 MG TABLET PO SCH (22:03)
[2021-03-10] MEDS: MELATONIN 5 MG TABLETS PO SCH (22:03)
[2021-03-10] MEDS: THIAMINE HCL 100 MG TABLET (FP) PO SCH (22:03)
[2021-03-11] MEDS: METHADONE HCL 40 MG DISPERSABLE TABLET PO SCH (05:50)
[2021-03-11] MEDS: guaiFENesin 200 MG/10 ML 10 ML UNIT-DOSE CUPS PO PRN (05:51)
[2021-03-11] MEDS ORDERED: diazePAM 5 MG TABLET PO ONE (06:00)
[2021-03-11] MEDS: PRENATAL VITAMINS W/ FOLIC ACID TABLET (FP) PO SCH (09:10)
[2021-03-11] MEDS: guaiFENesin 600 MG TABLET.ER (FP) PO SCH (09:10)
[2021-03-11] MEDS: GABAPENTIN 400 MG CAPSULE PO SCH (09:10)
[2021-03-11] MEDS: SERTRALINE HCL 50 MG TABLET (FP) PO SCH (09:10)
[2021-03-11] MEDS: BACITRACIN 0.9 GM PACKET TP SCH (09:10)
[2021-03-11 13:23] VITALS: BP 104/60; PULSE 61; TEMP 97.3
== END 2021-03-11 16:45 | disposition other institution (70) | DRG 773 ==
LOC: YASAS 12:30 → Y3N 16:39
PROVIDERS: ADMIT Allergy & Immunology; ATTEND Allergy & Immunology
PROC: HZ2ZZZZ Detoxification Services for Substance Abuse Treatment (ICD-10-PCS; principal; 2021-03-08)
DX: F10.230 Alcohol dependence with withdrawal, uncomplicated (principal); F11.20 Opioid dependence, uncomplicated; F13.20 Sedative, hypnotic or anxiolytic dependence, uncomplicated; F17.210 Nicotine dependence, cigarettes, uncomplicated; F33.1 Major depressive disorder, recurrent, moderate; F19.282 Other psychoactive substance dependence with psychoactive substance-induced sleep disorder; F19.280 Other psychoactive substance dependence with psychoactive substance-induced anxiety disorder; F19.24 Other psychoactive substance dependence with psychoactive substance-induced mood disorder; F43.10 Post-traumatic stress disorder, unspecified; F64.0 Transsexualism; J45.909 Unspecified asthma, uncomplicated; G47.09 Other insomnia
CPT/HCPCS: 36415; 80053; 85027; 86780; 94640; C9803; U0003; U0005

== ENCOUNTER 2021-07-08 14:20 | Inpatient (IN) | payer OTHER ==
[2021-07-08] MEDS ORDERED: BISMUTH SUBSALICYLATE 524 MG/30 ML PO PRN (15:57)
[2021-07-08] MEDS ORDERED: IBUPROFEN 400 MG TABLET (FP) PO PRN (15:57)
[2021-07-08] MEDS ORDERED: MAGNESIUM HYDROX 2400MG/30ML ORAL SUSPENSION 30 ML CUP PO PRN (15:57)
[2021-07-08] MEDS ORDERED: ACETAMINOPHEN 325 MG TABLET (FP) PO PRN ×2 (15:57)
[2021-07-08] MEDS ORDERED: ONDANSETRON *ODT* 4 MG TABLET SL PRN (15:57)
[2021-07-08] MEDS ORDERED: MAG HYDROX/AL HYDROX/SIMETH 30 ML UNIT-DOSE CUP PO PRN (15:57)
[2021-07-08] MEDS ORDERED: MAGNESIUM CITRATE 300 ML BOTTLE PO PRN (15:57)
[2021-07-08] MEDS ORDERED: NICOTINE 10 MG CARTRIDGE (INHALER) IH PRN (15:57)
[2021-07-08] MEDS ORDERED: MENTHOL/PHENOL 1 EACH UD MM PRN (15:57)
[2021-07-08] MEDS ORDERED: METHOCARBAMOL 500 MG TABLET PO PRN (15:57)
[2021-07-08 17:15] VITALS: BMI 32.8
[2021-07-08] MEDS ORDERED: diazePAM 5 MG TABLET PO PRN (19:32)
[2021-07-08] MEDS: ESTRADIOL 2 MG TABLET (NON-FORMULARY) PO SCH (23:19)
[2021-07-08] MEDS: hydrOXYzine PAMOATE 25 MG CAPSULE (FP) PO SCH (23:19)
[2021-07-08] MEDS: SPIRONOLACTONE 25 MG TABLET PO SCH (23:23)
[2021-07-08] MEDS: GABAPENTIN 400 MG CAPSULE PO SCH (23:24)
[2021-07-08] MEDS: diazePAM 5 MG TABLET PO SCH (23:24)
[2021-07-08] MEDS: THIAMINE HCL 100 MG TABLET (FP) PO SCH (23:24)
[2021-07-08] MEDS: MELATONIN 5 MG TABLETS PO SCH (23:24)
[2021-07-09] MEDS: diazePAM 5 MG TABLET PO SCH ×4 (07:00→22:49)
[2021-07-09] MEDS: hydrOXYzine PAMOATE 25 MG CAPSULE (FP) PO SCH ×5 (07:00→22:48)
[2021-07-09] MEDS ORDERED: methaDONE HCL 10 MG TABLET PO SCH (09:00)
[2021-07-09] MEDS ORDERED: methaDONE HCL 40 MG DISPERSABLE TABLET ONE (09:53)
[2021-07-09 10:27] LABS: HEMOGLOBIN 11.8 GM/dL (11.7-16.9); MCHC 33.8 g/dl (32.0-35.9); MEAN CELL VOLUME 88.9 fl (80-96); MEAN PLT VOLUME 8.4 fl (7.5-11.1); PLATELET COUNT 213 10^3/uL (134-434); RBC 3.93 M/mm3 (4.00-5.60)
[2021-07-09 11:11] LABS: CALCIUM 8.5 mg/dL (8.5-10.1)
[2021-07-09 11:13] LABS: ALBUMIN 2.4 g/dl (3.4-5.0)
[2021-07-09 11:15] LABS: BLOOD UREA NITROGEN 12.6 mg/dL (7-18)
[2021-07-09 11:16] LABS: BILIRUBIN,TOTAL 0.3 mg/dL (0.2-1); CREATININE 0.9 mg/dL (0.55-1.3); TOT PROT 6.1 g/dl (6.4-8.2)
[2021-07-09] MEDS: SPIRONOLACTONE 25 MG TABLET PO SCH ×2 (14:47→22:33)
[2021-07-09] MEDS: ESTRADIOL 2 MG TABLET (NON-FORMULARY) PO SCH ×3 (14:47→19:15)
[2021-07-09] MEDS: GABAPENTIN 400 MG CAPSULE PO SCH (14:54)
[2021-07-09] MEDS ORDERED: QUEtiapine FUMARATE 50 MG TABLET PO SCH (22:00)
[2021-07-09] MEDS ORDERED: GABAPENTIN 100 MG CAPSULE PO SCH (22:00)
[2021-07-09] MEDS: MELATONIN 5 MG TABLETS PO SCH (22:33)
[2021-07-09] MEDS: GABAPENTIN 100 MG CAPSULE PO SCH (22:34)
[2021-07-09] MEDS: THIAMINE HCL 100 MG TABLET (FP) PO SCH (22:48)
[2021-07-10] MEDS: ESTRADIOL 2 MG TABLET (NON-FORMULARY) PO SCH ×5 (00:25→22:34)
[2021-07-10] MEDS ORDERED: methaDONE HCL 40 MG DISPERSABLE TABLET ONE (05:04)
[2021-07-10] MEDS: hydrOXYzine PAMOATE 25 MG CAPSULE (FP) PO SCH ×5 (06:32→22:35)
[2021-07-10] MEDS: diazePAM 5 MG TABLET PO SCH ×3 (06:33→22:35)
[2021-07-10] MEDS ORDERED: SERTRALINE HCL 50 MG TABLET (FP) PO SCH (10:00)
[2021-07-10] MEDS: GABAPENTIN 100 MG CAPSULE PO SCH ×2 (10:28→22:35)
[2021-07-10] MEDS: SERTRALINE HCL 50 MG TABLET (FP) PO SCH (10:28)
[2021-07-10] MEDS: SPIRONOLACTONE 25 MG TABLET PO SCH ×2 (13:53→22:34)
[2021-07-10] MEDS: THIAMINE HCL 100 MG TABLET (FP) PO SCH (22:35)
[2021-07-10] MEDS: MELATONIN 5 MG TABLETS PO SCH (22:36)
[2021-07-11] MEDS ORDERED: methaDONE HCL 40 MG DISPERSABLE TABLET ONE (05:02)
[2021-07-11] MEDS: diazePAM 5 MG TABLET PO SCH ×2 (07:43→17:42)
[2021-07-11] MEDS: hydrOXYzine PAMOATE 25 MG CAPSULE (FP) PO SCH ×5 (07:45→22:20)
[2021-07-11] MEDS: SPIRONOLACTONE 25 MG TABLET PO SCH ×2 (13:58→22:20)
[2021-07-11] MEDS: GABAPENTIN 100 MG CAPSULE PO SCH ×2 (14:02→22:20)
[2021-07-11] MEDS: SERTRALINE HCL 50 MG TABLET (FP) PO SCH (14:02)
[2021-07-11] MEDS: ESTRADIOL 2 MG TABLET (NON-FORMULARY) PO SCH ×4 (14:02→22:20)
[2021-07-11] MEDS: THIAMINE HCL 100 MG TABLET (FP) PO SCH (22:20)
[2021-07-11] MEDS: MELATONIN 5 MG TABLETS PO SCH (22:20)
[2021-07-12] MEDS ORDERED: methaDONE HCL 40 MG DISPERSABLE TABLET ONE (04:19)
[2021-07-12] MEDS ORDERED: diazePAM 5 MG TABLET PO ONE (06:00)
[2021-07-12] MEDS: hydrOXYzine PAMOATE 25 MG CAPSULE (FP) PO SCH ×2 (06:16→10:39)
[2021-07-12 07:42] VITALS: TEMP 96.4
[2021-07-12 09:52] VITALS: BP 107/71; PULSE 60
[2021-07-12] MEDS: SPIRONOLACTONE 25 MG TABLET PO SCH (10:38)
[2021-07-12] MEDS: ESTRADIOL 2 MG TABLET (NON-FORMULARY) PO SCH (10:38)
[2021-07-12] MEDS: GABAPENTIN 100 MG CAPSULE PO SCH (10:39)
[2021-07-12] MEDS: SERTRALINE HCL 50 MG TABLET (FP) PO SCH (10:39)
== END 2021-07-12 09:55 | disposition home or self-care (01) | DRG 773 ==
LOC: YASAS 14:20 → Y6N 18:13 → UNDOADMIN 18:13
PROVIDERS: ADMIT Allergy & Immunology; ATTEND Allergy & Immunology
PROC: HZ2ZZZZ Detoxification Services for Substance Abuse Treatment (ICD-10-PCS; principal; 2021-07-08)
DX: F10.230 Alcohol dependence with withdrawal, uncomplicated (principal); F11.20 Opioid dependence, uncomplicated; F13.20 Sedative, hypnotic or anxiolytic dependence, uncomplicated; F14.20 Cocaine dependence, uncomplicated; F17.210 Nicotine dependence, cigarettes, uncomplicated; F64.0 Transsexualism; F33.9 Major depressive disorder, recurrent, unspecified; F43.10 Post-traumatic stress disorder, unspecified; F19.24 Other psychoactive substance dependence with psychoactive substance-induced mood disorder; F19.280 Other psychoactive substance dependence with psychoactive substance-induced anxiety disorder; J45.20 Mild intermittent asthma, uncomplicated; E66.9 Obesity, unspecified; Z68.32 Body mass index [BMI] 32.0-32.9, adult; Z87.890 Personal history of sex reassignment; Z56.0 Unemployment, unspecified; Z59.00 Homelessness unspecified
CPT/HCPCS: 36415; 80053; 85027; 86780; 93005; 93010; C9803; U0003; U0005

== ENCOUNTER 2022-11-23 10:08 | Inpatient (IN) | payer OTHER ==
[2022-11-23 11:16] VITALS: BMI 31.9
[2022-11-23] MEDS ORDERED: MAG HYDROX/AL HYDROX/SIMETH 30 ML UNIT-DOSE CUP PO PRN (13:26)
[2022-11-23] MEDS ORDERED: DICYCLOMINE HCL 10 MG CAPSULE PO PRN (13:26)
[2022-11-23] MEDS ORDERED: MAGNESIUM HYDROX 2400MG/30ML ORAL SUSPENSION 30 ML CUP PO PRN (13:26)
[2022-11-23] MEDS ORDERED: IBUPROFEN 400 MG TABLET (FP) PO PRN (13:26)
[2022-11-23] MEDS ORDERED: NICOTINE 10 MG CARTRIDGE (INHALER) IH PRN (13:26)
[2022-11-23] MEDS ORDERED: IBUPROFEN 600 MG TABLET (FP) PO PRN (13:26)
[2022-11-23] MEDS ORDERED: NICOTINE POLACRILEX 4 MG GUM BUC PRN (13:26)
[2022-11-23] MEDS ORDERED: LOPERAMIDE HCL 2 MG CAPSULE PO PRN (13:26)
[2022-11-23] MEDS ORDERED: POLYETHYLENE GLYCOL (HEALTHYLAX) 3350 17 GM PACKET PO PRN (13:26)
[2022-11-23] MEDS ORDERED: ACETAMINOPHEN 325 MG TABLET (FP) PO PRN ×2 (13:26)
[2022-11-23] MEDS ORDERED: NALOXONE HCL (KLOXXADO) 8 MG SPRAY NS PRN (13:26)
[2022-11-23] MEDS ORDERED: hydrOXYzine PAMOATE 25 MG CAPSULE (FP) PO PRN (13:26)
[2022-11-23] MEDS ORDERED: BENZOCAINE/MENTHOL (CHLORASEPTIC ) LOZENGE MM PRN (13:26)
[2022-11-23] MEDS ORDERED: BISMUTH SUBSALICYLATE 524 MG/30 ML PO PRN (13:26)
[2022-11-23] MEDS ORDERED: ONDANSETRON *ODT* 4 MG TABLET SL PRN (13:26)
[2022-11-23] MEDS ORDERED: METHOCARBAMOL 500 MG TABLET PO PRN (13:26)
[2022-11-23] MEDS ORDERED: ALBUTEROL SO4 HFA INHALER IH SCH (13:45)
[2022-11-23] MEDS ORDERED: SPIRONOLACTONE 25 MG TABLET PO SCH (14:15)
[2022-11-23] MEDS ORDERED: ALBUTEROL SO4 HFA INHALER IH PRN (15:06)
[2022-11-23] MEDS: PRENATAL VITAMINS W/ FOLIC ACID TABLET (FP) PO SCH (16:36)
[2022-11-23] MEDS: diazePAM 5 MG TABLET PO SCH ×2 (17:16→22:21)
[2022-11-23] MEDS ORDERED: ESTRADIOL 2 MG TABLET (NON-FORMULARY) PO SCH (18:00)
[2022-11-23] MEDS: diazePAM 5 MG TABLET PO PRN (20:42)
[2022-11-23] MEDS ORDERED: MELATONIN 5 MG TABLETS PO SCH (22:00)
[2022-11-23] MEDS: THIAMINE HCL 100 MG TABLET (FP) PO SCH (22:19)
[2022-11-24] MEDS: diazePAM 5 MG TABLET PO SCH ×4 (05:50→22:16)
[2022-11-24] MEDS ORDERED: methaDONE HCL 10 MG TABLET PO SCH (10:15)
[2022-11-24] MEDS: PRENATAL VITAMINS W/ FOLIC ACID TABLET (FP) PO SCH (10:51)
[2022-11-24] MEDS: SERTRALINE HCL 50 MG TABLET (FP) PO SCH (11:13)
[2022-11-24] MEDS: GABAPENTIN 100 MG CAPSULE PO SCH ×2 (13:31→22:16)
[2022-11-24 14:20] LABS: HEMATOCRIT 34.8 % (32.4-45.2); HEMOGLOBIN 11.4 GM/dL (10.7-15.3); MCH 30.1 pg (25.7-33.7); MCHC 32.8 g/dl (32.0-36.0); MEAN CELL VOLUME 91.6 fl (80-96); MEAN PLT VOLUME 8.5 fl (7.5-11.1); PLATELET COUNT 191 10^3/uL (134-434); RDW 13.7 % (11.6-15.6)
[2022-11-24 15:10] LABS: CALCIUM 8.6 mg/dL (8.5-10.1)
[2022-11-24 15:11] LABS: ALBUMIN 2.8 g/dl (3.4-5.0); BLOOD UREA NITROGEN 16.4 mg/dL (7-18)
[2022-11-24 15:14] LABS: BILIRUBIN,TOTAL 0.3 mg/dL (0.2-1); CREATININE 0.9 mg/dL (0.55-1.3); TOT PROT 6.1 g/dl (6.4-8.2)
[2022-11-24] MEDS ORDERED: traZODone HCL 50 MG TABLET (FP) PO SCH (22:00)
[2022-11-24] MEDS: QUEtiapine FUMARATE 50 MG TABLET PO SCH (22:16)
[2022-11-24] MEDS: THIAMINE HCL 100 MG TABLET (FP) PO SCH (22:16)
[2022-11-25] MEDS: diazePAM 5 MG TABLET PO SCH ×3 (05:37→22:35)
[2022-11-25] MEDS: GABAPENTIN 100 MG CAPSULE PO SCH ×3 (05:37→22:34)
[2022-11-25] MEDS: diazePAM 5 MG TABLET PO PRN (10:24)
[2022-11-25] MEDS: SERTRALINE HCL 50 MG TABLET (FP) PO SCH (10:24)
[2022-11-25] MEDS: PRENATAL VITAMINS W/ FOLIC ACID TABLET (FP) PO SCH (10:25)
[2022-11-25] MEDS: QUEtiapine FUMARATE 50 MG TABLET PO SCH (22:34)
[2022-11-25] MEDS: THIAMINE HCL 100 MG TABLET (FP) PO SCH (22:34)
[2022-11-26] MEDS: GABAPENTIN 100 MG CAPSULE PO SCH ×3 (05:45→22:01)
[2022-11-26] MEDS: diazePAM 5 MG TABLET PO SCH ×2 (05:47→17:31)
[2022-11-26] MEDS: diazePAM 5 MG TABLET PO PRN (10:28)
[2022-11-26] MEDS: PRENATAL VITAMINS W/ FOLIC ACID TABLET (FP) PO SCH (10:28)
[2022-11-26] MEDS: SERTRALINE HCL 50 MG TABLET (FP) PO SCH (10:28)
[2022-11-26] MEDS: THIAMINE HCL 100 MG TABLET (FP) PO SCH (22:01)
[2022-11-26] MEDS: QUEtiapine FUMARATE 50 MG TABLET PO SCH (22:01)
[2022-11-27] MEDS: GABAPENTIN 100 MG CAPSULE PO SCH (05:23)
[2022-11-27] MEDS ORDERED: diazePAM 5 MG TABLET PO ONE (06:00)
[2022-11-27 09:05] VITALS: BP 128/73; PULSE 64; RESP 18; TEMP 96.9
[2022-11-27] MEDS: PRENATAL VITAMINS W/ FOLIC ACID TABLET (FP) PO SCH (09:10)
[2022-11-27] MEDS: SERTRALINE HCL 50 MG TABLET (FP) PO SCH (09:10)
== END 2022-11-27 09:23 | disposition home or self-care (01) | DRG 773 ==
LOC: YASAS 10:08 → Y3N 13:33
PROVIDERS: ADMIT Allergy & Immunology; ATTEND Surgery
PROC: HZ2ZZZZ Detoxification Services for Substance Abuse Treatment (ICD-10-PCS; principal; 2022-11-23)
DX: F10.230 Alcohol dependence with withdrawal, uncomplicated (principal); F13.20 Sedative, hypnotic or anxiolytic dependence, uncomplicated; F14.20 Cocaine dependence, uncomplicated; F11.20 Opioid dependence, uncomplicated; F17.210 Nicotine dependence, cigarettes, uncomplicated; F19.24 Other psychoactive substance dependence with psychoactive substance-induced mood disorder; F32.9 Major depressive disorder, single episode, unspecified; F43.10 Post-traumatic stress disorder, unspecified; F64.0 Transsexualism; J45.909 Unspecified asthma, uncomplicated; Z86.2 Personal history of diseases of the blood and blood-forming organs and certain disorders involving the immune mechanism; Z56.0 Unemployment, unspecified; Z59.00 Homelessness unspecified
CPT/HCPCS: 36415; 80053; 85027; 86780; 87811; C9803-CS; U0003; U0005

== ENCOUNTER 2023-03-28 14:18 | Inpatient (IN) | payer OTHER ==
[2023-03-28 15:23] VITALS: BMI 31.9
[2023-03-28] MEDS ORDERED: guaiFENesin 600 MG TABLET.ER (FP) PO PRN (16:10)
[2023-03-28] MEDS ORDERED: ACETAMINOPHEN 325 MG TABLET (FP) PO PRN (16:10)
[2023-03-28] MEDS ORDERED: NICOTINE POLACRILEX 2 MG GUM BUC PRN (16:10)
[2023-03-28] MEDS ORDERED: MAGNESIUM HYDROX 2400MG/30ML ORAL SUSPENSION 30 ML CUP PO PRN (16:10)
[2023-03-28] MEDS ORDERED: BISMUTH SUBSALICYLATE 524 MG/30 ML PO PRN (16:10)
[2023-03-28] MEDS ORDERED: NALOXONE HCL (KLOXXADO) 8 MG SPRAY NS PRN (16:10)
[2023-03-28] MEDS ORDERED: POLYETHYLENE GLYCOL (HEALTHYLAX) 3350 17 GM PACKET PO PRN (16:10)
[2023-03-28] MEDS ORDERED: P-EPHED 60MG/TRIPROLIDI 2.5MG TABLET PO PRN (16:10)
[2023-03-28] MEDS ORDERED: MAG HYDROX/AL HYDROX/SIMETH 30 ML UNIT-DOSE CUP PO PRN (16:10)
[2023-03-28] MEDS ORDERED: NALOXONE HCL 0.4 MG/ML VIAL IM PRN (16:10)
[2023-03-28] MEDS ORDERED: IBUPROFEN 400 MG TABLET (FP) PO PRN (16:10)
[2023-03-28] MEDS ORDERED: BENZOCAINE/MENTHOL (CHLORASEPTIC ) LOZENGE MM PRN (16:10)
[2023-03-28] MEDS ORDERED: DICYCLOMINE HCL 10 MG CAPSULE PO PRN (16:10)
[2023-03-28] MEDS ORDERED: IBUPROFEN 600 MG TABLET (FP) PO PRN (16:10)
[2023-03-28] MEDS ORDERED: LOPERAMIDE HCL 2 MG CAPSULE PO PRN (16:10)
[2023-03-28] MEDS ORDERED: BENZONATATE 200 MG CAPSULE PO PRN (16:10)
[2023-03-28] MEDS ORDERED: ALBUTEROL SO4 HFA INHALER IH PRN (16:12)
[2023-03-28] MEDS ORDERED: LOPERAMIDE HCL 2 MG CAPSULE ONE (16:55)
[2023-03-28] MEDS ORDERED: diazePAM 5 MG TABLET PO PRN (17:35)
[2023-03-28] MEDS: MELATONIN 5 MG TABLETS PO SCH (22:30)
[2023-03-28] MEDS: THIAMINE HCL 100 MG TABLET (FP) PO SCH (22:30)
[2023-03-29] MEDS ORDERED: METHADONE PO SCH (06:00)
[2023-03-29] MEDS ORDERED: methaDONE HCL 10 MG TABLET PO SCH (07:45)
[2023-03-29] MEDS: PRENATAL VITAMINS W/ FOLIC ACID TABLET (FP) PO SCH (10:20)
[2023-03-29] MEDS ORDERED: diazePAM 5 MG TABLET PO PRN (11:18)
[2023-03-29 11:33] LABS: HEMATOCRIT 37.7 % (32.4-45.2); HEMOGLOBIN 12.2 GM/dL (10.7-15.3); MCH 29.8 pg (25.7-33.7); MCHC 32.4 g/dl (32.0-36.0); MEAN CELL VOLUME 92.1 fl (80-96); MEAN PLT VOLUME 8.7 fl (7.5-11.1); PLATELET COUNT 224 10^3/uL (134-434); RDW 13.6 % (11.6-15.6); WHITE BLOOD COUNT 6.7 K/mm3 (4.0-10.0)
[2023-03-29 11:54] LABS: POTASSIUM 3.6 mmol/L (3.5-5.1)
[2023-03-29 12:03] LABS: CALCIUM 9.1 mg/dL (8.5-10.1)
[2023-03-29 12:04] LABS: ALBUMIN 2.9 g/dl (3.4-5.0)
[2023-03-29 12:08] LABS: BILIRUBIN,TOTAL 0.2 mg/dL (0.2-1)
[2023-03-29] MEDS: GABAPENTIN 300 MG CAPSULE PO SCH ×2 (14:16→22:33)
[2023-03-29] MEDS: SERTRALINE HCL 50 MG TABLET (FP) PO SCH (15:11)
[2023-03-29] MEDS: diazePAM 5 MG TABLET PO SCH ×2 (17:19→22:33)
[2023-03-29] MEDS ORDERED: QUEtiapine FUMARATE 100 MG TABLET (FP) PO SCH (22:00)
[2023-03-29] MEDS: QUEtiapine FUMARATE 100 MG TABLET (FP) PO SCH (22:33)
[2023-03-29] MEDS: MELATONIN 5 MG TABLETS PO SCH (22:33)
[2023-03-29] MEDS: hydrOXYzine PAMOATE 25 MG CAPSULE (FP) PO PRN (22:33)
[2023-03-29] MEDS: THIAMINE HCL 100 MG TABLET (FP) PO SCH (22:33)
[2023-03-29] MEDS: ONDANSETRON *ODT* 4 MG TABLET SL PRN (23:57)
[2023-03-29] MEDS ORDERED: TRIMETHOBENZAMIDE HCL 200MG/2ML INJ IM ONE (23:59)
[2023-03-30] MEDS: GABAPENTIN 300 MG CAPSULE PO SCH ×3 (05:51→22:08)
[2023-03-30] MEDS: diazePAM 5 MG TABLET PO SCH ×3 (05:52→22:08)
[2023-03-30] MEDS: ONDANSETRON *ODT* 4 MG TABLET SL PRN ×2 (05:54→16:31)
[2023-03-30] MEDS: PRENATAL VITAMINS W/ FOLIC ACID TABLET (FP) PO SCH (10:52)
[2023-03-30] MEDS: SERTRALINE HCL 50 MG TABLET (FP) PO SCH (10:52)
[2023-03-30] MEDS ORDERED: ESTRADIOL 2 MG TABLET (NON-FORMULARY) PO SCH (14:00)
[2023-03-30] MEDS ORDERED: SPIRONOLACTONE 100 MG PO SCH (22:00)
[2023-03-30] MEDS: QUEtiapine FUMARATE 100 MG TABLET (FP) PO SCH (22:08)
[2023-03-30] MEDS: THIAMINE HCL 100 MG TABLET (FP) PO SCH (22:08)
[2023-03-30] MEDS: MELATONIN 5 MG TABLETS PO SCH (22:08)
[2023-03-31] MEDS: diazePAM 5 MG TABLET PO SCH ×3 (06:43→20:10)
[2023-03-31] MEDS: GABAPENTIN 300 MG CAPSULE PO SCH ×3 (06:44→22:14)
[2023-03-31] MEDS: PRENATAL VITAMINS W/ FOLIC ACID TABLET (FP) PO SCH (10:27)
[2023-03-31] MEDS: SERTRALINE HCL 50 MG TABLET (FP) PO SCH (10:28)
[2023-03-31] MEDS ORDERED: methaDONE HCL 10 MG TABLET PO ONE (10:31)
[2023-03-31] MEDS: ONDANSETRON *ODT* 4 MG TABLET SL PRN (10:35)
[2023-03-31] MEDS: hydrOXYzine PAMOATE 25 MG CAPSULE (FP) PO PRN ×2 (20:13→22:14)
[2023-03-31] MEDS ORDERED: diazePAM 5 MG TABLET PO ONE (20:31)
[2023-03-31] MEDS: MELATONIN 5 MG TABLETS PO SCH (22:14)
[2023-03-31] MEDS: QUEtiapine FUMARATE 100 MG TABLET (FP) PO SCH (22:14)
[2023-03-31] MEDS: THIAMINE HCL 100 MG TABLET (FP) PO SCH (22:14)
[2023-04-01] MEDS: ONDANSETRON *ODT* 4 MG TABLET SL PRN (05:33)
[2023-04-01] MEDS: GABAPENTIN 300 MG CAPSULE PO SCH (05:33)
[2023-04-01] MEDS ORDERED: diazePAM 5 MG TABLET PO ONE (06:00)
[2023-04-01 06:02] VITALS: RESP 16
[2023-04-01 09:05] VITALS: BP 97/62; PULSE 96; TEMP 97.6
[2023-04-01] MEDS: SERTRALINE HCL 50 MG TABLET (FP) PO SCH (09:23)
[2023-04-01] MEDS: PRENATAL VITAMINS W/ FOLIC ACID TABLET (FP) PO SCH (09:24)
== END 2023-04-01 09:30 | disposition home or self-care (01) | DRG 773 ==
LOC: YASAS 14:18 → Y6N 16:35
PROVIDERS: ADMIT Allergy & Immunology; ATTEND Surgery
PROC: HZ2ZZZZ Detoxification Services for Substance Abuse Treatment (ICD-10-PCS; principal; 2023-03-28)
DX: F13.230 Sedative, hypnotic or anxiolytic dependence with withdrawal, uncomplicated (principal); F11.20 Opioid dependence, uncomplicated; F14.20 Cocaine dependence, uncomplicated; F17.210 Nicotine dependence, cigarettes, uncomplicated; F19.282 Other psychoactive substance dependence with psychoactive substance-induced sleep disorder; F19.24 Other psychoactive substance dependence with psychoactive substance-induced mood disorder; F32.9 Major depressive disorder, single episode, unspecified; F64.0 Transsexualism; F43.10 Post-traumatic stress disorder, unspecified; J45.909 Unspecified asthma, uncomplicated; Z62.810 Personal history of physical and sexual abuse in childhood; Z91.410 Personal history of adult physical and sexual abuse; Z59.00 Homelessness unspecified; Z56.0 Unemployment, unspecified
CPT/HCPCS: 36415; 80053; 83036; 85027; 86780; 87635; Q0162

== ENCOUNTER 2023-08-28 15:37 | Inpatient (IN) | payer OTHER ==
[2023-08-28 17:07] VITALS: BMI 30.4
[2023-08-28] MEDS ORDERED: ALBUTEROL SO4 HFA INHALER IH PRN (19:30)
[2023-08-28] MEDS ORDERED: diazePAM 5 MG TABLET PO PRN (19:39)
[2023-08-28] MEDS ORDERED: NALOXONE HCL 0.4 MG/ML VIAL IM PRN (19:40)
[2023-08-28] MEDS ORDERED: MAGNESIUM HYDROX 2400MG/30ML ORAL SUSPENSION 30 ML CUP PO PRN (19:40)
[2023-08-28] MEDS ORDERED: NALOXONE HCL (KLOXXADO) 8 MG SPRAY NS PRN (19:40)
[2023-08-28] MEDS ORDERED: POLYETHYLENE GLYCOL (HEALTHYLAX) 3350 17 GM PACKET PO PRN (19:40)
[2023-08-28] MEDS ORDERED: P-EPHED 60MG/TRIPROLIDI 2.5MG TABLET PO PRN (19:40)
[2023-08-28] MEDS ORDERED: ONDANSETRON *ODT* 4 MG TABLET SL PRN (19:40)
[2023-08-28] MEDS ORDERED: ACETAMINOPHEN 325 MG TABLET (FP) PO PRN (19:40)
[2023-08-28] MEDS ORDERED: DICYCLOMINE HCL 10 MG CAPSULE PO PRN (19:40)
[2023-08-28] MEDS ORDERED: LOPERAMIDE HCL 2 MG CAPSULE PO PRN (19:40)
[2023-08-28] MEDS ORDERED: BENZONATATE 200 MG CAPSULE PO PRN (19:40)
[2023-08-28] MEDS ORDERED: BENZOCAINE/MENTHOL (CHLORASEPTIC ) LOZENGE MM PRN (19:40)
[2023-08-28] MEDS ORDERED: BISMUTH SUBSALICYLATE 524 MG/30 ML PO PRN (19:40)
[2023-08-28] MEDS ORDERED: IBUPROFEN 400 MG TABLET (FP) PO PRN (19:40)
[2023-08-28] MEDS ORDERED: IBUPROFEN 600 MG TABLET (FP) PO PRN (19:40)
[2023-08-28] MEDS ORDERED: MAG HYDROX/AL HYDROX/SIMETH 30 ML UNIT-DOSE CUP PO PRN (19:40)
[2023-08-28] MEDS ORDERED: guaiFENesin 600 MG TABLET.ER (FP) PO PRN (19:40)
[2023-08-28] MEDS: diazePAM 5 MG TABLET PO SCH (23:51)
[2023-08-28] MEDS: THIAMINE HCL 100 MG TABLET (FP) PO SCH (23:53)
[2023-08-28] MEDS: MELATONIN 5 MG TABLETS PO SCH (23:53)
[2023-08-29] MEDS: diazePAM 5 MG TABLET PO SCH ×4 (05:30→22:22)
[2023-08-29] MEDS: METHOCARBAMOL 500 MG TABLET PO PRN ×2 (05:34→17:42)
[2023-08-29] MEDS ORDERED: methaDONE HCL 10 MG TABLET PO SCH (09:15)
[2023-08-29] MEDS: SPIRONOLACTONE 25 MG TABLET PO SCH ×2 (09:30→22:21)
[2023-08-29] MEDS: PRENATAL VITAMINS W/ FOLIC ACID TABLET (FP) PO SCH (09:30)
[2023-08-29 10:34] LABS: HEMATOCRIT 38.7 % (32.4-45.2); HEMOGLOBIN 12.8 GM/dL (10.7-15.3); MCH 30.2 pg (25.7-33.7); MCHC 33.1 g/dl (32.0-36.0); MEAN CELL VOLUME 91.2 fl (80-96); PLATELET COUNT 211 10^3/uL (134-434); RBC 4.24 M/mm3 (3.60-5.2); RDW 13.2 % (11.6-15.6); WHITE BLOOD COUNT 6.4 K/mm3 (4.0-10.0)
[2023-08-29 10:59] LABS: ALBUMIN 2.9 g/dl (3.4-5.0); BLOOD UREA NITROGEN 13.6 mg/dL (7-18); CALCIUM 8.6 mg/dL (8.5-10.1)
[2023-08-29 11:03] LABS: BILIRUBIN,TOTAL 0.4 mg/dL (0.2-1); TOT PROT 5.9 g/dl (6.4-8.2)
[2023-08-29 11:06] LABS: CREATININE 0.9 mg/dL (0.55-1.3)
[2023-08-29] MEDS: GABAPENTIN 100 MG CAPSULE PO SCH ×2 (13:13→22:21)
[2023-08-29] MEDS: MELATONIN 5 MG TABLETS PO SCH (22:21)
[2023-08-29] MEDS: THIAMINE HCL 100 MG TABLET (FP) PO SCH (22:21)
[2023-08-29] MEDS: QUEtiapine FUMARATE 100 MG TABLET (FP) PO SCH (22:21)
[2023-08-30] MEDS: GABAPENTIN 100 MG CAPSULE PO SCH ×3 (05:44→22:22)
[2023-08-30] MEDS: diazePAM 5 MG TABLET PO SCH ×3 (05:45→22:22)
[2023-08-30] MEDS: METHOCARBAMOL 500 MG TABLET PO PRN (05:47)
[2023-08-30] MEDS: SERTRALINE HCL 50 MG TABLET (FP) PO SCH (09:25)
[2023-08-30] MEDS: SPIRONOLACTONE 25 MG TABLET PO SCH ×2 (09:25→22:22)
[2023-08-30] MEDS: PRENATAL VITAMINS W/ FOLIC ACID TABLET (FP) PO SCH (09:25)
[2023-08-30] MEDS: THIAMINE HCL 100 MG TABLET (FP) PO SCH (22:22)
[2023-08-30] MEDS: MELATONIN 5 MG TABLETS PO SCH (22:22)
[2023-08-30] MEDS: QUEtiapine FUMARATE 100 MG TABLET (FP) PO SCH (22:22)
[2023-08-31] MEDS: GABAPENTIN 100 MG CAPSULE PO SCH ×3 (05:34→22:08)
[2023-08-31] MEDS: diazePAM 5 MG TABLET PO SCH ×2 (05:34→17:17)
[2023-08-31] MEDS: SPIRONOLACTONE 25 MG TABLET PO SCH ×2 (10:33→22:09)
[2023-08-31] MEDS: PRENATAL VITAMINS W/ FOLIC ACID TABLET (FP) PO SCH (10:33)
[2023-08-31] MEDS: SERTRALINE HCL 50 MG TABLET (FP) PO SCH (10:33)
[2023-08-31] MEDS: METHOCARBAMOL 500 MG TABLET PO PRN ×2 (10:35→22:12)
[2023-08-31] MEDS: MELATONIN 5 MG TABLETS PO SCH (22:07)
[2023-08-31] MEDS: THIAMINE HCL 100 MG TABLET (FP) PO SCH (22:07)
[2023-08-31] MEDS: QUEtiapine FUMARATE 100 MG TABLET (FP) PO SCH (22:08)
[2023-09-01] MEDS: GABAPENTIN 100 MG CAPSULE PO SCH (05:38)
[2023-09-01] MEDS ORDERED: diazePAM 5 MG TABLET PO ONE (06:00)
[2023-09-01 09:13] VITALS: BP 95/59; PULSE 90; RESP 18; TEMP 98.8
[2023-09-01] MEDS: PRENATAL VITAMINS W/ FOLIC ACID TABLET (FP) PO SCH (09:54)
[2023-09-01] MEDS: SPIRONOLACTONE 25 MG TABLET PO SCH (09:54)
[2023-09-01] MEDS: SERTRALINE HCL 50 MG TABLET (FP) PO SCH (09:54)
== END 2023-09-01 10:35 | disposition other institution (70) | DRG 773 ==
LOC: YASAS 15:37 → Y3N 23:18
PROVIDERS: ADMIT Allergy & Immunology; ATTEND Surgery
PROC: HZ2ZZZZ Detoxification Services for Substance Abuse Treatment (ICD-10-PCS; principal; 2023-08-28)
DX: F13.230 Sedative, hypnotic or anxiolytic dependence with withdrawal, uncomplicated (principal); F14.20 Cocaine dependence, uncomplicated; F11.20 Opioid dependence, uncomplicated; F17.210 Nicotine dependence, cigarettes, uncomplicated; F19.24 Other psychoactive substance dependence with psychoactive substance-induced mood disorder; F41.9 Anxiety disorder, unspecified; F32.A Depression, unspecified; G47.00 Insomnia, unspecified; J45.30 Mild persistent asthma, uncomplicated; Z62.810 Personal history of physical and sexual abuse in childhood; Z91.410 Personal history of adult physical and sexual abuse
CPT/HCPCS: 36415; 80053; 85027; 86780; 87635

== ENCOUNTER 2023-10-20 20:24 | Inpatient (IN) | payer OTHER ==
[2023-10-20 21:23] VITALS: BMI 28.1
[2023-10-20] MEDS ORDERED: IBUPROFEN 400 MG TABLET (FP) PO PRN (21:38)
[2023-10-20] MEDS ORDERED: BENZONATATE 200 MG CAPSULE PO PRN (21:38)
[2023-10-20] MEDS ORDERED: ACETAMINOPHEN 325 MG TABLET (FP) PO PRN (21:38)
[2023-10-20] MEDS ORDERED: BENZOCAINE/MENTHOL (CHLORASEPTIC ) LOZENGE MM PRN (21:38)
[2023-10-20] MEDS ORDERED: IBUPROFEN 600 MG TABLET (FP) PO PRN (21:38)
[2023-10-20] MEDS ORDERED: LOPERAMIDE HCL 2 MG CAPSULE PO PRN (21:38)
[2023-10-20] MEDS ORDERED: BISMUTH SUBSALICYLATE 524 MG/30 ML PO PRN (21:38)
[2023-10-20] MEDS ORDERED: DICYCLOMINE HCL 10 MG CAPSULE PO PRN (21:38)
[2023-10-20] MEDS ORDERED: guaiFENesin 600 MG TABLET.ER (FP) PO PRN (21:38)
[2023-10-20] MEDS ORDERED: MAGNESIUM HYDROX 2400MG/30ML ORAL SUSPENSION 30 ML CUP PO PRN (21:38)
[2023-10-20] MEDS ORDERED: POLYETHYLENE GLYCOL (HEALTHYLAX) 3350 17 GM PACKET PO PRN (21:38)
[2023-10-20] MEDS ORDERED: P-EPHED 60MG/TRIPROLIDI 2.5MG TABLET PO PRN (21:38)
[2023-10-20] MEDS ORDERED: MAG HYDROX/AL HYDROX/SIMETH 30 ML UNIT-DOSE CUP PO PRN (21:38)
[2023-10-20] MEDS ORDERED: NALOXONE HCL 0.4 MG/ML VIAL IM PRN (21:38)
[2023-10-20] MEDS ORDERED: ONDANSETRON *ODT* 4 MG TABLET SL PRN (21:38)
[2023-10-20] MEDS ORDERED: NALOXONE HCL (KLOXXADO) 8 MG SPRAY NS PRN (21:38)
[2023-10-20] MEDS ORDERED: diazePAM 5 MG TABLET PO PRN (21:38)
[2023-10-20] MEDS ORDERED: GABAPENTIN 100 MG CAPSULE PO ONE (21:40)
[2023-10-20] MEDS ORDERED: ONDANSETRON *ODT* 4 MG TABLET ONE (22:09)
[2023-10-20] MEDS ORDERED: GABAPENTIN 100 MG CAPSULE ONE (22:50)
[2023-10-20] MEDS ORDERED: diazePAM 5 MG TABLET ONE (22:50)
[2023-10-20] MEDS ORDERED: MELATONIN 5 MG TABLETS ONE (22:50)
[2023-10-20] MEDS: THIAMINE HCL 100 MG TABLET (FP) PO SCH (22:57)
[2023-10-20] MEDS: MELATONIN 5 MG TABLETS PO SCH (22:57)
[2023-10-20] MEDS: diazePAM 5 MG TABLET PO SCH (22:57)
[2023-10-21] MEDS: diazePAM 5 MG TABLET PO SCH ×5 (05:55→22:19)
[2023-10-21] MEDS ORDERED: methaDONE HCL 10 MG TABLET PO SCH (08:45)
[2023-10-21] MEDS: PRENATAL VITAMINS W/ FOLIC ACID TABLET (FP) PO SCH (10:05)
[2023-10-21 11:17] LABS: HEMOGLOBIN 12.5 GM/dL (10.7-15.3); MCH 30.3 pg (25.7-33.7); MCHC 33.8 g/dl (32.0-36.0); MEAN CELL VOLUME 89.6 fl (80-96); MEAN PLT VOLUME 9.6 fl (7.5-11.1); PLATELET COUNT 217 10^3/uL (134-434); RBC 4.13 M/mm3 (3.60-5.2); RDW 12.9 % (11.6-15.6); WHITE BLOOD COUNT 7.9 K/mm3 (4.0-10.0)
[2023-10-21 11:39] LABS: POTASSIUM 3.3 mmol/L (3.5-5.1)
[2023-10-21 11:41] LABS: CALCIUM 8.7 mg/dL (8.5-10.1)
[2023-10-21 11:42] LABS: BLOOD UREA NITROGEN 12.7 mg/dL (7-18)
[2023-10-21 11:45] LABS: CREATININE 0.8 mg/dL (0.55-1.3)
[2023-10-21 11:46] LABS: BILIRUBIN,TOTAL 0.4 mg/dL (0.2-1)
[2023-10-21 11:47] LABS: TOT PROT 6.5 g/dl (6.4-8.2)
[2023-10-21] MEDS ORDERED: POTASSIUM CHLORIDE ORAL LIQUID 20 MEQ/15 ML PO ONE (15:44)
[2023-10-21] MEDS: MELATONIN 5 MG TABLETS PO SCH (22:18)
[2023-10-21] MEDS: POTASSIUM CHLORIDE ORAL LIQUID 20 MEQ/15 ML PO SCH (22:19)
[2023-10-21] MEDS: GABAPENTIN 100 MG CAPSULE PO SCH (22:19)
[2023-10-21] MEDS: THIAMINE HCL 100 MG TABLET (FP) PO SCH (22:19)
[2023-10-21] MEDS: QUEtiapine FUMARATE 50 MG TABLET PO SCH (22:19)
[2023-10-22] MEDS: diazePAM 5 MG TABLET PO SCH ×3 (05:38→22:13)
[2023-10-22] MEDS: PRENATAL VITAMINS W/ FOLIC ACID TABLET (FP) PO SCH (09:24)
[2023-10-22] MEDS: POTASSIUM CHLORIDE ORAL LIQUID 20 MEQ/15 ML PO SCH (09:24)
[2023-10-22] MEDS: SERTRALINE HCL 50 MG TABLET (FP) PO SCH (09:24)
[2023-10-22] MEDS: GABAPENTIN 100 MG CAPSULE PO SCH ×2 (09:24→22:13)
[2023-10-22 10:03] LABS: POTASSIUM 3.7 mmol/L (3.5-5.1)
[2023-10-22 10:18] LABS: CALCIUM 8.9 mg/dL (8.5-10.1)
[2023-10-22 10:19] LABS: BLOOD UREA NITROGEN 9.1 mg/dL (7-18)
[2023-10-22 10:22] LABS: CREATININE 0.9 mg/dL (0.55-1.3)
[2023-10-22] MEDS: METHOCARBAMOL 500 MG TABLET PO PRN ×2 (13:14→22:12)
[2023-10-22] MEDS: THIAMINE HCL 100 MG TABLET (FP) PO SCH (22:13)
[2023-10-22] MEDS: MELATONIN 5 MG TABLETS PO SCH (22:13)
[2023-10-22] MEDS: QUEtiapine FUMARATE 50 MG TABLET PO SCH (22:13)
[2023-10-23] MEDS: diazePAM 5 MG TABLET PO SCH ×2 (05:24→17:33)
[2023-10-23] MEDS ORDERED: ALBUTEROL SO4 HFA INHALER IH PRN (08:18)
[2023-10-23] MEDS: GABAPENTIN 100 MG CAPSULE PO SCH ×2 (10:10→22:18)
[2023-10-23] MEDS: PRENATAL VITAMINS W/ FOLIC ACID TABLET (FP) PO SCH (10:10)
[2023-10-23] MEDS: SERTRALINE HCL 50 MG TABLET (FP) PO SCH (10:10)
[2023-10-23] MEDS: QUEtiapine FUMARATE 50 MG TABLET PO SCH (22:18)
[2023-10-23] MEDS: MELATONIN 5 MG TABLETS PO SCH (22:18)
[2023-10-23] MEDS: THIAMINE HCL 100 MG TABLET (FP) PO SCH (22:19)
[2023-10-23] MEDS: METHOCARBAMOL 500 MG TABLET PO PRN (22:21)
[2023-10-24] MEDS ORDERED: diazePAM 5 MG TABLET PO ONE (06:00)
[2023-10-24 09:05] VITALS: BP 126/73; PULSE 64; RESP 18; TEMP 98.3
== END 2023-10-24 09:03 | disposition home or self-care (01) | DRG 773 ==
LOC: YASAS 20:24 → Y3N 22:33
PROVIDERS: ADMIT Allergy & Immunology; ATTEND Allergy & Immunology
PROC: HZ2ZZZZ Detoxification Services for Substance Abuse Treatment (ICD-10-PCS; principal; 2023-10-20)
DX: F13.230 Sedative, hypnotic or anxiolytic dependence with withdrawal, uncomplicated (principal); F11.20 Opioid dependence, uncomplicated; F19.24 Other psychoactive substance dependence with psychoactive substance-induced mood disorder; F32.9 Major depressive disorder, single episode, unspecified; F17.210 Nicotine dependence, cigarettes, uncomplicated; E87.6 Hypokalemia; I10 Essential (primary) hypertension; J45.30 Mild persistent asthma, uncomplicated; Z56.0 Unemployment, unspecified; Z59.00 Homelessness unspecified
CPT/HCPCS: 36415; 73590-TC-RT-FY; 80048; 80053; 85027; 86780; 87635; 87811; Q0162